=== PATIENT | female | born 1995 | race African-American/Black ===

== ENCOUNTER 2024-09-08 11:19 | Emergency (ER) | payer OTHER, MEDICAID, SELFPAY ==
--- NOTE | ~2024-09-08 | US_ITS ---
FIRST TRIMESTER ULTRASOUND 09/08/2024 16:55 CDT Ordering provider: Jaleel Donaldson MD History: . positive preg . Comparison: None. FINDINGS: INTRAUTERINE GESTATIONAL SAC: Present. Measures 0.42 cm. equal to 5 weeks and 1 day. YOLK SAC: Not seen. POLE: Not seen. GESTATIONAL AGE BY TODAY'S US: 5 weeks and 1 day. UTERUS: The uterus measures 9.9x 5x 5.7 in length which is within normal limits. No myometrial masses . FREE FLUID: Trace seen in the cul-de-sac. OVARIES: Normal in size with the right measuring 2.2x 2.3x 2.3 cm. and the left measuring 1.9x 1.2x 1 .7 cm. Doppler flow is demonstrated within both ovaries. ADNEXAL MASSES: None. IMPRESSION: Intrauterine gestational sac equal to 5 weeks and 1 day . Reviewed, dictated and finalized at location A.
--- NOTE | ~2024-09-08 | XR_ITS ---
EXAMINATION: XR chest 1V portable DATE: 09/08/2024 12:03 INDICATION: Chronic cough TECHNIQUE: frontal view of the chest was obtained. COMPARISON: None FINDINGS: The lungs are clear with no focal airspace opacities, pulmonary edema, pleural effusion or pneumothor ax. The cardiomediastinal silhouette is normal. Visualized bones and soft tissues are unremarkable. IMPRESSION: 1. No acute cardiopulmonary disease. Reviewed, dictated and finalized at location A.
[2024-09-08 11:43] VITALS: BP 127/76; PULSE 88; RESP 18; TEMP 36.6; O2SAT 100
--- NOTE | 2024-09-08 12:10 | ED.ABDPAIN ---
HPI - Abdominal Pain General Chief Complaint: Abdominal Pain Stated Complaint: abd pain Time Seen by Provider: 09/08/24 11:47 History of Present Illness HPI narrative: 29-year-old otherwise healthy female presenting to the emergency room with lower abdominal pain and pelvic pain. Patient states that has been going on for last 2 weeks. Endorses being late on her menstrual cycle and she normally is very regular. Potential according to her. Denies any vaginal bleeding or leakage of fluids. No urinary symptoms. Endorses a 2nd complaint including a chronic cough for last month associated with some headache and nausea without vomiting. No upper abdominal pain, no history of abdominal surgeries. She was otherwise in her normal state of health. She is not from the area and just moved from [place] and has not established with a primary care provider yet. Denies any trauma or injury. Patient is also requesting STD testing although she does not have any rash or symptoms at this time she is concerned. Related Data Allergies Allergy/AdvReac Type Severity Reaction Status Date / Time No Known Allergies Allergy Verified 09/08/24 11:20 Review of Systems Review of Systems: As reviewed above in HPI Exam Narrative: GENERAL: [Well-appearing, well-nourished, and in no acute distress.] HEAD: [Normocephalic, atraumatic.] EYES: [PERRLA and EOMI.] ENT: Nares clear, no rhinorrhea or epistaxis. Mucous membranes moist. NECK: Supple. CHEST: [Clear to auscultation. No respiratory distress.] HEART: [Regular rate and rhythm]. No murmur heard. [Normal peripheral pulses.] ABDOMEN: [Soft, nondistended], [nontender], [No rigidity or guarding] EXTREMITIES: Normal range of motion. [No edema.] SKIN: Warm, dry, no rash. NEURO: [No focal deficits]. Alert and oriented [x3.] PSYCH: [Normal mood and affect.] Course Vital Signs Vital signs: Vital Signs Temperature 36.6 C 09/08/24 11:43 Pulse Rate 88 09/08/24 11:43 Respiratory Rate 18 09/08/24 11:43 Blood Pressure 127/76 09/08/24 11:43 Pulse Oximetry 100 09/08/24 11:43 Oxygen Delivery Room Air 09/08/24 11:43 Temperature 36.6 C 09/08/24 11:43 Pulse Rate 88 09/08/24 11:43 Respiratory Rate 18 09/08/24 11:43 Blood Pressure 127/76 09/08/24 11:43 Pulse Oximetry 100 09/08/24 11:43 Oxygen Delivery Room Air 09/08/24 11:43 MDM - Abdominal Pain MDM Narrative Medical decision making narrative: 29-year-old female with no pertinent past medical history presenting with lower abdominal pain for 2 weeks and cough for 1 month. Patient denies any urinary complaints. States she is late on her menstrual cycle and concerned about STDs as well. She has an unremarkable examination with a soft nontender nondistended abdomen. Normal vital signs. She is afebrile. Clear breath sounds throughout. Her lower abdominal pain and cough for likely separate issues and non emergent based on her well appearance and normal vital signs. Differential for her lower abdominal pain includes appendicitis, ovarian cyst, constipation, gastroenteritis, pelvic inflammatory disease or ovarian abscess. Laboratory studies were obtained including CBC, CMP, lipase, urinalysis and urine test. Gonorrhea, chlamydia and Trichomonas screenings also ordered. Chest x-ray and viral panel swabs obtained. Laboratory studies showed no leukocytosis or anemia. Normal platelet count. LFTs normal, normal renal function, normal electrolytes. Normal lipase. Urinalysis shows some signs of infection potentially. test positive and in the setting of lower pelvic pain we will have to rule out ectopic. Ultrasound was ordered as well as quantitative beta hCG. Normal renal function, normal electrolytes, normal lipase. Mildly elevated D-dimer that is low risk per years criteria. Viral panel negative, chlamydia gonorrhea and Trichomonas negative. Chest x-ray shows no acute cardiopulmonary disease. Obstetric ultrasound shows intrauterine gestational sac 5 weeks 1 day . Patient stable for discharge home at this time will be sent home with [facility] for her urinary tract infection and follow-up with OBGYN. Medical Records Attestation: I reviewed the patient's medical records. Lab Data Attestation: I reviewed the patient's lab results. 09/08/24 13:11 09/08/24 13:11 Labs: Lab Results 09/08/24 09/08/24 09/08/24 Range/Units 13:10 13:11 14:04 WBC 4.4 L (4.5-10.0) K/mm3 RBC 4.92 (4.2-5.4) M/mm3 Hgb 13.0 (12.0-15.0) g/dL Hct 37.1 (37.0-47.0) % MCV 75.4 L (80-100) fl MCH 26.4 (26-34) pg MCHC 35.0 (32-36) g/dl RDW 14.3 (11.5-14.5) % Plt Count 228 (150-375) k/mm3 MPV 12.4 H (7.4-10.4) fl Immature Gran % (Auto) 0.0 (0-0.5) % Neut % (Auto) 54.3 (45.5-73.1) % Lymph % (Auto) 37.6 (18.3-44.2) % [place] % (Auto) 5.4 (2.6-8.5) % Eos % (Auto) 1.8 (0-4.4) % Baso % (Auto) 0.9 (0.2-1.2) % Lymph # (Auto) 1.66 (0.9-3.2) K/mm3 [place] # (Auto) 0.2 (0.1-0.6) K/mm3 Eos # (Auto) 0.1 (0-0.3) K/mm3 Baso # (Auto) 0.0 (0.0-0.1) K/mm3 Abs Immat Gran (auto) 0.00 (0.00-0.031) K/mm3 Absolute Neuts (auto) 2.4 (1.3-6.7) K/mm3 Absolute Nucleated RBC 0.000 (0.0-0.012) K/mm3 Nucleated RBC % 0.0 (0.0-0.2) % D-Dimer 0.57 H (<0.48) ug/mL Sodium 136 L (137-145) mmol/L Potassium 4.0 (3.4-5.0) mmol/L Chloride 107 (98-107) mmol/L Carbon Dioxide 22 (22-30) mmol/L Anion Gap 7 (4-12) mmol/L BUN 12 (7-17) mg/dL Creatinine 0.82 (0.7-1.0) mg/dL Estim Creat Clear Calc 86 ml/min Estimated GFR > 60 (59 - ) Glucose 89 (65-110) mg/dL Calcium 9.1 (8.4-10.2) mg/dL Total Bilirubin 0.5 (0.2-1.3) mg/dL AST 23 (14-36) U/L ALT 16 (6-35) U/L Alkaline Phosphatase 45 (38-126) U/L Total Protein 8.0 (6.3-8.2) g/dL Albumin 4.1 (3.5-5.1) g/dL Lipase 121 (23-300) U/L Beta HCG, Quant 4328.60 mIU/ML Urine Color Yellow (Yellow) Urine Appearance Cloudy H (Clear) Urine pH 6.5 (5.0-9.0) Ur Specific [place] 1.012 (1.001-1.035) Urine Protein Negative (Negative) mg/dL Urine Glucose (UA) Negative (Negative) mg/dL Urine Ketones Negative (Negative) mg/dL Ur Blood (Man) Trace (Negative) Urine Nitrate Negative (Negative) Urine Bilirubin Negative (Negative) Urine Urobilinogen 1.0 (<2.0) mg/dL Leukocyte Esterase Rfl 3+ H (Negative) JULIUS/UL Urine RBC 3-5 H (0-2) /hpf Urine WBC 11-20 H (0-3) /hpf Ur Squamous Epith Cells Moderate (Few) /hpf Urine Bacteria 1+ H /hpf Urine Casts 0-2 POC Urine HCG, Qual Positive (Negative) C. trachomatis (PCR) Not detected (NOT DETECTE) Influenza A (RT-PCR) Negative (Negative) Influenza B (RT-PCR) Negative (Negative) N. gonorrhoeae (PCR) Not detected (NOT DETECTE) RSV (RT-PCR) Negative (Negative) SARS-CoV-2 RNA (RT-PCR) Negative (Negative) T. vaginalis (PCR) Not detected (NOT DETECTE) Imaging Data Attestation: I personally reviewed and interpreted this imaging study as follows: My impression: Impressions Chest X-Ray 09/08/24 12:06 IMPRESSION: 1. No acute cardiopulmonary disease. Obstetrics Ultrasound 09/08/24 17:52 IMPRESSION: Intrauterine gestational sac equal to 5 weeks and 1 day . Radiologist's impression: ITS Impressions Chest X-Ray 09/08/24 12:06 IMPRESSION: 1. No acute cardiopulmonary disease. Obstetrics Ultrasound 09/08/24 17:52 IMPRESSION: Intrauterine gestational sac equal to 5 weeks and 1 day . Discharge Plan Discharge Clinical Impression: First trimester , UTI (urinary tract infection), Chronic cough Patient Disposition: Home Condition: Stable Instructions: Antibiotic Form, Chronic Cough (ED), Abdominal Pain in (ED), Urinary Tract Infection in (ED) Additional Instructions: Your workup today shows a intrauterine approximately 5 weeks 1 day gestation. Laboratory studies are all normal. You do have a urinalysis that shows signs and points towards urinary infection. STD panel is negative as well as viral panel negative. Chest x-ray shows no findings and your D-dimer is not elevated to the point of concern for a PE in . Follow-up with OBGYN and take the prescribed Keflex for urinary infection. Return with any new or worsening concerns at any time. Patient Language: Burundian Prescriptions: New cephalexin 500 mg capsule 500 mg PO Q12H 5 Days Qty: 10 0RF Follow-up/Referrals: PHYSICIAN,BRASS WIND INSTRUMENT MAKER [Primary Care Provider] - Stanley Mejía MD [Physician] - 1 Week (establish care for new intrauterine ) Time of Disposition: 18:56
--- OUTSIDE RECORDS SUMMARY | 2024-09-08 12:10 | XMS_ITS | Referral Summary ---
Author Organization [facility] Address [address] [place] [address] Care Team Providers Care Forestry Conservation Worker Name Role Phone Unavailable Primary Care Provider Unavailabl e Allergies Active Allergy Reactions Criticality Noted Date Comments Ascorbic Acid Rash Medium 07/08/2019 Castellano Pepper Extract Urticaria Medium 03/22/2023 [place] Hives,Itching Medium 05/18/2015 Medications Medrol, Lee, 4 mg Dosepack follow package directions 1 packet 3 Active naproxen (NAPROSYN) 500 mg tablet Take 1 tablet (500 mg total) by mouth 2 (two) times a day with meals 30 tablet 3 Active oxyCODONE (ROXICODONE) 5 mg immediate release tabletIndicatio ns:Pain Take 1-2 tablets (5-10 mg total) by mouth every 4 (four) hours as needed for pain (severe pain) 15 tablet 3 Active lidocaine (LIDODERM) 5 % Place 1-2 patches on the skin daily Remove & discard patch within 12 hours or as directed by . 30 patch 3 Active hydrOXYzine (ATARAX) 25 mg tablet Take 1 tablet (25 mg total) by mouth nightly at bedtime 3 Active rimegepant (NURTEC ODT) tablet,disinteg rating Take 1 tablet (75 mg total) by mouth as needed 3 Active SUMAtriptan (IMITREX) 50 mg tablet Take 1 tablet (50 mg total) by mouth 2 Active topiramate (TOPAMAX) 25 mg tablet Take 1 tablet (25 mg total) by mouth daily 3 Active valACYclovir (Valtrex) 500 mg tablet Take 1 tablet (500 mg total) by mouth 2 Active ketorolac (TORADOL) 10 mg tablet Take 1 tablet (10 mg total) by mouth every 6 (six) hours as needed for pain 20 tablet 4 Active Active Problems Problem Noted Date Diagnosed Date 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 Gender Identity Female 09/20/2023 9:49 AM CDT Sexual Orientation Not on file Last Filed Vital Signs Vital Sign Reading Time Taken Comments Blood Pressure 115/75 09/20/2023 4:46 PM CDT Pulse 83 09/20/2023 4:46 PM CDT Temperature 36.8 C (98.3 F) 09/20/2023 9:32 AM CDT Respiratory Rate 18 09/20/2023 4:46 PM CDT Oxygen Saturation 100% 09/20/2023 9:32 AM CDT Inhaled Oxygen Concentration - - Weight 68.5 kg (151 lb) 09/20/2023 10:43 AM CDT Height 170.2 cm (5' 7 ) 01/23/2023 1:27 PM CDT Body Mass Index 23.65 01/23/2023 1:27 PM CDT Plan of Treatment Not on file Insurance [facility] [employer] Address: [facility] [id number] [place] [address] [facility] [employer] Address: [facility] [address] [place] [address] [facility]
--- OUTSIDE RECORDS SUMMARY | 2024-09-08 12:10 | XMS_ITS | Clinical Summary ---
Author Organization [facility] Address [address] [place] [address] Care Team Providers Care Therapeutic Program Worker Name Role Phone None, Provider MD Primary Care Provider Unavaila ble Allergies Active Allergy Reactions Criticality Noted Date Comments Ascorbate Rash Medium 07/08/2019 Capsicum Hives Medium 03/22/2023 Elderberry-Vitamin C-Zinc Rash Low 07/08/2019 Jalapeno peppers Misc Natural Products Hives Medium 11/03/2023 Strawberries Hives,Itching Medium 05/18/2015 [place] Extract Rash Low 07/08/2019 Medications topiramate (TOPAMAX) 25 MG tabletIndications: Migraine without aura, not intractable, without status migrainosus Take 1 tablet (25 mg total) by mouth nightly at bedtime. 60 tablet 11 07/16/19 23 Active rimegepant (NURTEC) 75 MG disintegrating tabletIndications: Migraine without aura, not intractable, without status migrainosus Take 1 tablet (75 mg total) by mouth as needed for Migraine. 16 tablet 11 07/16/19 23 Active Additional Information Patient not taking.Reported on 06/27/2023 naproxen (NAPROSYN) 500 MG tablet Take 1 tablet (500 mg total) by mouth 2 (two) times daily. 01/25/20 23 Active hydrOXYzine (ATARAX) 25 MG tablet Take 1 tablet (25 mg total) by mouth daily. 02/08/20 23 Active rimegepant (NURTEC) 75 MG disintegrating tabletIndications: Migraine without aura, not intractable, without status migrainosus Take 1 tablet (75 mg total) by mouth as needed. Max of 1 tablet (75 mg) in 24 hours. 16 tablet 11 06/27/19 24 Active atogepant (QULIPTA) tabletIndications: Migraine without aura, not intractable, without status migrainosus Take 1 tablet (60 mg total) by mouth daily. 30 tablet 11 06/27/19 24 Active rimegepant (NURTEC) 75 MG disintegrating tabletIndications: Migraine without aura, not intractable, without status migrainosus Take 1 tablet (75 mg total) by mouth as needed. Max of 1 tablet (75 mg) in 24 hours. 16 tablet 11 07/03/19 24 Active Immunizations Immunization Administration Dates Next Due Dtap (Acel-Immune) 07/04/2000,02/04/1997 Dtp (Generic) 02/12/1996,1995,1995 HPV4 (Gardasil) 06/25/2014,01/20/2012,12/29/2009 Hepatitis A (Generic) 01/20/2012 Hepatitis B Pediatric 06/21/1996,1995,10/1995 Hib (Generic) 02/04/1997,02/12/1996,1995 ,1995 Influenza Adult (Generic) 02/10/2022,02/25/2015 MMR (MMRII) 07/04/2000,02/04/1997 Meningococcal (Menactra) 12/29/2009 Pneumococcal (Prevnar 7) 07/04/2000 Polio IPV (Ipol) 07/04/2000 Polio Opv (Generic) 02/12/1996,1995,1995 Tdap (Generic) 04/28/2015,12/29/2009 Varicella (Varivax) 12/29/2009,07/04/2000 Social History Tobacco Use Types Packs/Day Years Used Date Smoking Tobacco: Never Passive Smoke Exposure: Past Smokeless Tobacco: Never Tobacco Cessation:Counseling Given: No Alcohol Use Standard Drinks/Week Comments Not Currently 0 (1 standard drink = 0.6 oz pur e alcohol) PHQ-2 Answer Date Recorded Patient Health Questionnaire-2 Score 0 07/15/2022 Comments Unknown Sex and Gender Information Value Date Recorded Sex Assigned at Not on file Legal Sex Female 9:27 AM CDT Gender Identity Not on file Sexual Orientation Not on file Last Filed Vital Signs Vital Sign Reading Time Taken Comments Blood Pressure 120/78 05/21/2024 1:08 AM MATERIAL CHECKER Pulse 91 05/21/2024 1:08 AM MATERIAL CHECKER Temperature 37.6 C (99.7 F) 05/20/2024 11:13 PM MATERIAL CHECKER Respiratory Rate 24 05/20/2024 11:1 3 PM MATERIAL CHECKER Oxygen Saturation 100% 05/21/2024 1:08 AM MATERIAL CHECKER Inhaled Oxygen Concentration - - Weight 70.3 kg (154 lb 15.7 oz) 025 11:13 PM MATERIAL CHECKER Height 170.2 cm (5' 7 ) 05/20/2024 11:1 3 PM MATERIAL CHECKER Body Mass Index 24.27 05/20/2024 11:13 PM MATERIAL CHECKER Plan of Treatment Upcoming Encounters Date Type Department Care Team (Late st Contact Info) Description 10/14/2024 11:20 AM CDT Office Visit [facility] Multispecialty Care - [address], [address] [place] [address] Derick Ayala MD [address] [place] [address] Health Maintenance Due Date Last Done Comments Cervical Cancer Screening Pap Smear (Age 21 to 29) Every 3 Years 1995 Cervical Cancer Screening 1995 Annual Physical 07/18/1998 Hepatitis C 07/18/2013 COVID-19 Vaccine ( season) 2024 01/24/2022, 01/03/2022 PHQ-2 (Physician [place]) 05/15/2024 DTaP, Tdap and Td Vaccines (10 - Td or Tdap) 08/05/2031 08/04/2021, 01/13/2017, 04/28/2015, Additional history exists Pneumococcal Vaccine: Pediatrics (0 to 5 Years) and At-Risk Patients (6 to 49 Years) Aged Out 07/04/2000 No longer eligible based on patient's age to complete this topic Meningococcal Vaccine Aged Out 01/13/2017, 010 No longer eligible based on patient's age to complete this topic HPV Vaccines Completed 07/20/2018, 06/2017, 11/10/2017, Additional history exists Hepatitis B Vaccines Completed 03/20/2019, 07/21/2017, 02/18/2017, Additional history exists Meningococcal B Vaccine Aged Out No l onger eligible based on patient's age to complete this topic RSV Immunizations Under 20 Months Aged Out No longer eligible based on patient's age to complete this topic Insurance Care Teams Therapeutic Program Worker Relationship Specialty Start Date End Date None, Provider, PCP - General UNKNOWN PHYSICIAN SPECIALTY 05/20/24
--- OUTSIDE RECORDS SUMMARY | 2024-09-08 12:10 | XMS_ITS | Clinical Summary ---
Author Organization [facility] Address [address] [place] [address] Care Team Providers Care Teacher Preschool Name Role Phone Unavailable Primary Care Provider Unavailabl e Allergies Active Allergy Reactions Criticality Noted Date Comments Ascorbic Acid Rash Medium 07/08/2019 Castellano Pepper Extract Urticaria Medium 03/22/2023 [place] Hives,Itching Medium 05/18/2015 Medications Medrol, Lee, 4 [...] hemoglobin and sickle cell disease syndrome 03/17/2022 Medical History Medical History Date Comments Chronic low back pain Social History Tobacco Use Types Packs/Day Years [...] on file 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 Gender Identity Female 09/20/2023 9:49 AM CDT Sexual Orientation Not on file Obstetrics History Last Filed Vital Signs Vital Sign Reading [...] 01/23/2023 1:27 PM CDT Plan of Treatment Health Maintenance Due Date Last Done Comments Cervical Cancer Screening 1995 Depression Screening 1995 Hepatitis C Screening 1995 Pneumococcal vaccine <65 (2 of 3 - PPSV23) 08/29/2000 07/04/2000 Meningococcal B Vaccine (1 o f 5 - Increased Risk) 07/18/2005 Regular Well Visit/Exam 18-64 07/18/2013 Influenza Vaccine (#1) 2024 , 04/17/2019, 03/21/2018, Additional history exists DTaP/Tdap/Td Vaccine (10 - T d or Tdap) 08/05/2031 08/04/2021, 01/13/2017, 04/28/2015, Additional history exists Varicella Vaccines Completed 12/29/2009, 07/04/2000 HPV Vaccines Completed 06/25/2014, 11/2011, 12/29/2009 Hepatitis B Screening Completed 03/20/2019 , 07/21/2017, 02/18/2017, Additional history exists Insurance [facility] HE[employer] EMPL[employer]EE [employer] Address: [facility] [id number] [place] [address] [facility]
[2024-09-08 13:21] LABS: BEDSIDEPREGUCG Positive (Negative)
[2024-09-08 13:22] LABS: Basophils Percent Auto 0.9 % (0.2-1.2); Eosinophils Absolute Auto 0.1 K/mm3 (0-0.3); Eosinophils Percent Auto 1.8 % (0-4.4); Hematocrit 37.1 % (37.0-47.0); Lymphocytes Absolute Auto 1.66 K/mm3 (0.9-3.2); Lymphocytes Percent Auto 37.6 % (18.3-44.2); Mean Corpuscular Hemoglobin 26.4 pg (26-34); Mean Corpuscular Volume 75.4 fl (80-100); Mean Platelet Volume 12.4 fl (7.4-10.4); Monocytes Absolute Auto 0.2 K/mm3 (0.1-0.6); Monocytes Percent Auto 5.4 % (2.6-8.5); Neutrophils Absolute Auto 2.4 K/mm3 (1.3-6.7); Neutrophils Percent Auto 54.3 % (45.5-73.1); Platelet Count Result 228 k/mm3 (150-375); Red Blood Count 4.92 M/mm3 (4.2-5.4); Red Cell Distribution Width 14.3 % (11.5-14.5); White Blood Count 4.4 K/mm3 (4.5-10.0)
[2024-09-08 13:28] LABS: Add Urine Microscopic? YES; Appearance Urine Cloudy (Clear); Bacteria Urine 1+ /hpf; Bilirubin Urine Negative (Negative); Blood Urine Trace (Negative); Color Urine Yellow (Yellow); Glucose Urine UA Negative (Negative); Ketones Urine Negative (Negative); Leukocyte Esterase Ur 3+ LEU/UL (Negative); Nitrate Urine Negative (Negative); Non Pathogenic Casts 0-2; Protein Urine Negative (Negative); Specific Grav Ur 1.012 (1.001-1.035); Squamous Epithelial Cell Urine Moderate /hpf (Few); pH Urine 6.5 (5.0-9.0)
[2024-09-08 13:34] LABS: Alanine Aminotransferase 16 U/L (6-35); Albumin Level 4.1 g/dL (3.5-5.1); Alkaline Phosphatase 45 U/L (38-126); Anion Gap 7 mmol/L (4-12); Aspartate Amino Transferase 23 U/L (14-36); Bilirubin,Total 0.5 mg/dL (0.2-1.3); Blood Urea Nitrogen 12 mg/dL (7-17); Calcium 9.1 mg/dL (8.4-10.2); Carbon Dioxide 22 mmol/L (22-30); Chloride 107 mmol/L (98-107); Estimated CRCL calculation 86 ml/min; Estimated Glomerular Filt Rate > 60; Glucose 89 mg/dL (65-110); Lipase 121 U/L (23-300); Sodium 136 mmol/L (137-145)
[2024-09-08 14:44] LABS: Influenza A QL RT-PCR Negative (Negative); Influenza B QL RT-PCR Negative (Negative); RSV RNA, RT-PCR Negative (Negative); SARS-CoV-2 RNA PCR Negative (Negative)
[2024-09-08 15:16] LABS: Trichomonas Vag PCR NOT DETECTED (NOT DETECTE)
[2024-09-08 15:41] LABS: Chlamydia trachomatis NOT DETECTED (NOT DETECTE); Neisseria gonorrhoeae PCR NOT DETECTED (NOT DETECTE)
[2024-09-08 17:41] LABS: D Dimer 0.57 ug/mL (<0.48)
[2024-09-08 19:15] VITALS: BP 119/85; PULSE 74; RESP 16; O2SAT 100
== END 2024-09-08 19:15 | disposition home or self-care (01) ==
PROVIDERS: Emergency Provider Student in an Organized Health Care Education/Training Program
DX: O23.41 Unspecified infection of urinary tract in pregnancy, first trimester (principal); N39.0 Urinary tract infection, site not specified; O99.891 Other specified diseases and conditions complicating pregnancy; R05.3 Chronic cough; Z20.822 Contact with and (suspected) exposure to COVID-19; Z3A.01 Less than 8 weeks gestation of pregnancy
CPT/HCPCS: 36415; 71045; 76801; 76817; 80053; 81001; 81025; 83690; 84702; 85025; 85380; 87491; 87591; 87637; 87661; 96365; 99284; J0696

== ENCOUNTER 2024-09-16 10:31 | Outpatient (CLI) | payer OTHER, MEDICAID, SELFPAY ==
--- OUTSIDE RECORDS SUMMARY | 2024-09-16 11:26 | XMS_ITS | Referral Summary ---
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
--- OUTSIDE RECORDS SUMMARY | 2024-09-16 11:26 | XMS_ITS | Clinical Summary ---
Author Organization [facility] Address [address] [place] [address] Care Team Providers Care Plaster Die Maker Name Role Phone None, Provider MD Primary Care Provider Unavaila ble Allergies Active Allergy Reactions Criticality Noted Date Comments Ascorbate Rash Medium 07/08/2019 Capsicum Hives Medium 03/22/2023 Elderberry-Vitamin C-Zinc Rash Low 07/08/2019 Jalapeno peppers Misc Natural Products Hives Medium 11/03/2023 [place]raw[place] Hives,Itching Medium 05/18/2015 [place] Extract Rash Low 07/08/2019 Medications topiramate (TOPAMAX) [...] by mouth 2 (two) times daily. 01/25/20 Active hydrOXYzine (ATARAX) 25 MG tablet Take [...] Comments Blood Pressure 120/78 05/21/2024 1:08 AM HOMEMAKER COMPANION Pulse 91 05/21/2024 1:08 AM HOMEMAKER COMPANION Temperature 37.6 C (99.7 F) 05/20/2024 11:13 PM HOMEMAKER COMPANION Respiratory Rate 24 05/20/2024 11:1 3 PM HOMEMAKER COMPANION Oxygen Saturation 100% 05/21/2024 1:08 AM HOMEMAKER COMPANION Inhaled Oxygen Concentration - - Weight 70.3 kg (154 lb 15.7 oz) 025 11:13 PM HOMEMAKER COMPANION Height 170.2 cm (5' 7 ) 05/20/2024 11:1 3 PM HOMEMAKER COMPANION Body Mass Index 24.27 05/20/2024 11:13 PM HOMEMAKER COMPANION Plan of Treatment Upcoming Encounters Date Type Department Care Team (Late st Contact Info) Description 10/14/2024 11:20 AM CDT Office Visit [facility] Medical Group Multispecialty Care - [address], [address] [place] [address] Derick Ayala MD [address] [place] [address] Health Maintenance Due Date Last Done Comments Cervical Cancer Screening Pap Smear (Age 21 to 29) Every 3 Years 1995 Cervical Cancer Screening 1995 Annual Physical 07/18/1998 Hepatitis C 07/18/2013 COVID-19 Vaccine ( season) 2024 01/24/2022, 01/03/2022 PHQ-2 (Physician [place]) 05/15/2024 DTaP, Tdap and Td Vaccines (10 [...] to complete this topic Insurance Care Teams Plaster Die Maker Relationship Specialty Start Date End Date None, Provider, PCP - General UNKNOWN PHYSICIAN SPECIALTY 05/20/24
--- OUTSIDE RECORDS SUMMARY | 2024-09-16 11:26 | XMS_ITS | Clinical Summary ---
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
== END 2024-09-16 10:32 | disposition home or self-care (01) ==
LOC: ANHLAB 10:34
PROVIDERS: Visit Provider Student in an Organized Health Care Education/Training Program
DX: O20.0 Threatened abortion (principal); Z3A.00 Weeks of gestation of pregnancy not specified
CPT/HCPCS: 36415; 84702

== ENCOUNTER 2024-09-21 13:08 | Emergency (ER) | payer OTHER, MEDICAID, SELFPAY ==
[2024-09-21] VITALS (7 sets, daily range): BP systolic 115–132; BP diastolic 68–88; PULSE 71–86; RESP 15–20; TEMP 36.3; O2SAT 99–100
--- OUTSIDE RECORDS SUMMARY | 2024-09-21 13:11 | XMS_ITS | Clinical Summary ---
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
--- OUTSIDE RECORDS SUMMARY | 2024-09-21 13:11 | XMS_ITS | Clinical Summary ---
Author Organization [facility] Address [address] [place] [address] Care Team Providers Care Dive Supervisor Name Role Phone None, Provider MD Primary Care Provider Unavaila ble Allergies Active Allergy Reactions Criticality Noted Date Comments Ascorbate Rash Medium 07/08/2019 Capsicum Hives Medium 03/22/2023 Elderberry-Vitamin C-Zinc Rash Low 07/08/2019 Jalapeno peppers Misc Natural Products Hives Medium 11/03/2023 Strawberries Hives,Itching Medium 05/18/2015 [place] Extract Rash Low 07/08/2019 Medications topiramate (TOPAMAX) [...] Comments Blood Pressure 120/78 05/21/2024 1:08 AM MEAT SEAFOOD ASSOCIATE Pulse 91 05/21/2024 1:08 AM MEAT SEAFOOD ASSOCIATE Temperature 37.6 C (99.7 F) 05/20/2024 11:13 PM MEAT SEAFOOD ASSOCIATE Respiratory Rate 24 05/20/2024 11:1 3 PM MEAT SEAFOOD ASSOCIATE Oxygen Saturation 100% 05/21/2024 1:08 AM MEAT SEAFOOD ASSOCIATE Inhaled Oxygen Concentration - - Weight 70.3 kg (154 lb 15.7 oz) 025 11:13 PM MEAT SEAFOOD ASSOCIATE Height 170.2 cm (5' 7 ) 05/20/2024 11:1 3 PM MEAT SEAFOOD ASSOCIATE Body Mass Index 24.27 05/20/2024 11:13 PM MEAT SEAFOOD ASSOCIATE Plan of Treatment Upcoming Encounters Date Type Department Care Team (Late st Contact Info) Description 10/14/2024 11:20 AM CDT Office Visit [facility] - [address], [address] [place] [address] Derick Ayala MD [address] [place] [address] Health Maintenance Due Date Last Done Comments Cervical Cancer Screening Pap Smear (Age 21 to 29) Every 3 Years 1995 Cervical Cancer Screening 1995 Annual Physical 07/18/1998 Hepatitis C 07/18/2013 COVID-19 Vaccine ( season) 2024 01/24/2022, 01/03/2022 PHQ-2 (Physician [place]) 05/15/2024 DTaP, Tdap and Td Vaccines (10 [...] to complete this topic Insurance Care Teams Dive Supervisor Relationship Specialty Start Date End Date None, Provider, PCP - General UNKNOWN PHYSICIAN SPECIALTY 05/20/24
--- OUTSIDE RECORDS SUMMARY | 2024-09-21 13:11 | XMS_ITS | Referral Summary ---
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
--- OUTSIDE RECORDS SUMMARY | 2024-09-21 14:59 | XMS_ITS | Referral Summary ---
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
--- OUTSIDE RECORDS SUMMARY | 2024-09-21 15:00 | XMS_ITS | Clinical Summary ---
Author Organization [facility] Address [address] [place] [address] Care Team Providers Care Consulting Actuary Name Role Phone None, Provider MD Primary Care Provider Unavaila ble Allergies Active Allergy Reactions Criticality Noted Date Comments Ascorbate Rash Medium 07/08/2019 Capsicum Hives Medium 03/22/2023 Elderberry-Vitamin C-Zinc Rash Low 07/08/2019 Jalapeno peppers Misc Natural Products Hives Medium 11/03/2023 Strawberries Hives,Itching Medium 05/18/2015 [place] Extract Rash Low 07/08/2019 Medications topiramate (TOPAMAX) [...] Comments Blood Pressure 120/78 05/21/2024 1:08 AM TURF SALES PERSON Pulse 91 05/21/2024 1:08 AM TURF SALES PERSON Temperature 37.6 C (99.7 F) 05/20/2024 11:13 PM TURF SALES PERSON Respiratory Rate 24 05/20/2024 11:1 3 PM TURF SALES PERSON Oxygen Saturation 100% 05/21/2024 1:08 AM TURF SALES PERSON Inhaled Oxygen Concentration - - Weight 70.3 kg (154 lb 15.7 oz) 025 11:13 PM TURF SALES PERSON Height 170.2 cm (5' 7 ) 05/20/2024 11:1 3 PM TURF SALES PERSON Body Mass Index 24.27 05/20/2024 11:13 PM TURF SALES PERSON Plan of Treatment Upcoming Encounters Date Type Department Care Team (Late st Contact Info) Description 10/14/2024 11:20 AM CDT Office Visit [facility] - [address], [address] [place] [address] Derick Ayala MD [address] [place] [address] Health Maintenance Due Date Last Done Comments Cervical Cancer Screening Pap Smear (Age 21 to 29) Every 3 Years 1995 Cervical Cancer Screening 1995 Annual Physical 07/18/1998 Hepatitis C 07/18/2013 COVID-19 Vaccine ( season) 2024 01/24/2022, 01/03/2022 PHQ-2 (Physician [place]) 05/15/2024 DTaP, Tdap and Td Vaccines (10 [...] to complete this topic Insurance Care Teams Consulting Actuary Relationship Specialty Start Date End Date None, Provider, PCP - General UNKNOWN PHYSICIAN SPECIALTY 05/20/24
--- OUTSIDE RECORDS SUMMARY | 2024-09-21 15:00 | XMS_ITS | Clinical Summary ---
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
--- NOTE | 2024-09-21 16:17 | ED_ITS ---
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 Patient states she is having suprapubic abdominal cramping. Has not taking anything for symptoms. Denies vaginal bleeding, dysuria or hematuria, vaginal discharge or concern for STDs, fevers or vomiting. Is endorsing nausea but attributes this to morning sickness. LMP 08/01/2024. She is established with Dr. Mejía. The patient was evaluated in our ED on 09/08/2024 for suprapubic cramping and vaginal bleeding. She had an ultrasound at that time which showed an intrauterine gestational sac equal to 5 weeks and 1 day . She states the vaginal bleeding stopped about a week ago and she has not had any since. She is Rh positive per chart review. Patient did follow-up with Dr. 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 Related Data Allergies Allergy/AdvReac Type Severity Reaction Status Date / Time No Known Allergies Allergy Verified 09/21/24 14:48 Review of Systems 2 Review of Systems: All systems reviewed & are unremarkable except as noted in HPI and below PMFSH Past Medical History Medical History Sickle cell disease Surgical History Surgical History History of delivery Family History Family History Father Diabetes mellitus Social History Social History Smoking status: Never smoker Alcohol intake: current Alcohol use details: rare Substance use: never Substance use type: does not use Do You Feel Safe in your Home?: Yes Lack of Transportation: No Lack of Food: Sometimes True Current Housing: I Have Housing Concerned About Future Housing: No Difficulty Paying Gas/Electric Bills: YES Difficulty Paying for Meds: YES Currently Unemployed: YES Education: High School Diploma/GED Difficulty w/ Childcare or Family Care: No Living arrangements: with family Occupation/Education: occupation Gender identity (if verbalized by the patient): Female Sexual Orientation (if Verbalized by the Patient): Straight or Heterosexual Exam 2 Narrative: GENERAL: Well-appearing, well-nourished, and in no acute distress. HEAD: Normocephalic, atraumatic. EYES: PERRLA and EOMI. ENT: Nares clear, no rhinorrhea or epistaxis. Mucous membranes moist. NECK: Supple. CHEST: Clear to auscultation. No respiratory distress. HEART: Regular rate and rhythm. No murmur heard. Normal peripheral pulses. ABDOMEN: Normoactive bowel sounds. Abdomen soft with tenderness in the suprapubic region. No rebound or rigidity. No CVA tenderness. Negative McBurney's sign. EXTREMITIES: Normal range of motion. No edema. SKIN: Warm, dry, no rash. NEURO: No focal deficits. Alert and oriented x3 Course Vital Signs Vital signs: Vital Signs Temperature 97.4 F L 09/21/24 13:28 Pulse Rate 81 09/21/24 13:28 Respiratory Rate 16 09/21/24 13:28 Blood Pressure 123/80 09/21/24 13:28 Pulse Oximetry 100 09/21/24 13:28 Oxygen Delivery Room Air 09/21/24 13:28 Temperature 97.4 F L 09/21/24 13:28 Pulse Rate 76 09/21/24 18:00 Respiratory Rate 17 09/21/24 18:00 Blood Pressure 117/68 09/21/24 18:00 Pulse Oximetry 100 09/21/24 18:00 Oxygen Delivery Room Air 09/21/24 13:28 MDM - Female Genitourinary MDM Narrative Medical decision making narrative: 29-year-old female who is A0 currently 7 weeks presents to the emergency department for lower abdominal cramping that started today. No vaginal bleeding. Triage vitals are stable. Patient is afebrile nontoxic appearing and resting comfortably in exam bed. Exam is notable for tenderness to the suprapubic region. Lab work shows no leukocytosis or anemia. Chemistries are unremarkable. UA does indicate 11-20 white blood cells and 3+ leuk esterase with rare bacteria. Lipase is normal. Beta hCG uptrending, today is 62,7700, prior on 09/16/2024 was 30,665. Patient does have a confirmed IUP and had a pelvic ultrasound on 09/08/2024 which showed an intrauterine gestational sac measuring 5 weeks and 1 day of . I do not feel repeat exam is indicated today. I suspect her symptoms are secondary to UTI versus threatened miscarriage versus 1st trimester abdominal cramping. Patient was given Tylenol and Reglan in the ED with improvement. On re-evaluation she is found resting comfortably in the exam bed, playing on her phone and requesting food. She is given a sandwich and tolerating p.o. intake. She was started on Keflex for UTI, doxylamine, Reglan and Tylenol will be sent for symptomatic control. Advised close follow-up with OBGYN and discussed strict ED return precautions. She is agreeable with the plan verbalized understanding. Discharged in stable condition. Lab Data 09/21/24 16:22 09/21/24 16:22 Labs: Lab Results 09/21/24 09/21/24 09/21/24 Range/Units 16:08 16:22 16:33 WBC 4.5 (4.5-10.0) K/mm3 RBC 4.77 (4.2-5.4) M/mm3 Hgb 12.4 (12.0-15.0) g/dL Hct 35.8 L (37.0-47.0) % MCV 75.1 L (80-100) fl MCH 26.0 (26-34) pg MCHC 34.6 (32-36) g/dl RDW 14.4 (11.5-14.5) % Plt Count 193 (150-375) k/mm3 MPV 12.1 H (7.4-10.4) fl Immature Gran % (Auto) 0.2 (0-0.5) % Neut % (Auto) 54.7 (45.5-73.1) % Lymph % (Auto) 37.2 (18.3-44.2) % [place] % (Auto) 5.5 (2.6-8.5) % Eos % (Auto) 1.5 (0-4.4) % Baso % (Auto) 0.9 (0.2-1.2) % Lymph # (Auto) 1.69 (0.9-3.2) K/mm3 [place] # (Auto) 0.3 (0.1-0.6) K/mm3 Eos # (Auto) 0.1 (0-0.3) K/mm3 Baso # (Auto) 0.0 (0.0-0.1) K/mm3 Abs Immat Gran (auto) 0.01 (0.00-0.031) K/mm3 Absolute Neuts (auto) 2.5 (1.3-6.7) K/mm3 Absolute Nucleated RBC 0.000 (0.0-0.012) K/mm3 Nucleated RBC % 0.0 (0.0-0.2) % Sodium 134 L (137-145) mmol/L Potassium 3.7 (3.4-5.0) mmol/L Chloride 104 (98-107) mmol/L Carbon Dioxide 22 (22-30) mmol/L Anion Gap 8 (4-12) mmol/L BUN 13 (7-17) mg/dL Creatinine 0.78 (0.7-1.0) mg/dL Estim Creat Clear Calc 87 ml/min Estimated GFR > 60 (59 - ) Glucose 84 (65-110) mg/dL Calcium 8.8 (8.4-10.2) mg/dL Total Bilirubin 0.5 (0.2-1.3) mg/dL AST 24 (14-36) U/L ALT 16 (6-35) U/L Alkaline Phosphatase 44 (38-126) U/L Total Protein 7.0 (6.3-8.2) g/dL Albumin 4.0 (3.5-5.1) g/dL Lipase 120 (23-300) U/L Beta HCG, Quant 47109.00 mIU/ML Urine Color Yellow (Yellow) Urine Appearance Clear (Clear) Urine pH 6.0 (5.0-9.0) Ur Specific Reliance 1.010 (1.001-1.035) Urine Protein Negative (Negative) mg/dL Urine Glucose (UA) Negative (Negative) mg/dL Urine Ketones Negative (Negative) mg/dL Ur Blood (Man) Negative (Negative) Urine Nitrate Negative (Negative) Urine Bilirubin Negative (Negative) Urine Urobilinogen 1.0 (<2.0) mg/dL Leukocyte Esterase Rfl 3+ H (Negative) JULIUS/UL Urine RBC 0-2 (0-2) /hpf Urine WBC 11-20 H (0-3) /hpf Ur Squamous Epith Cells Few (Few) /hpf Urine Bacteria Rare /hpf Urine Casts 0-2 POC Urine HCG, Qual Positive (Negative) Discharge Plan Discharge Clinical Impression: Abnormal urinalysis, with suprapubic cramping, antepartum Patient Disposition: Home Condition: Stable Instructions: Antibiotic Form, Abdominal Pain in (ED), Urinary Tract Infection in (ED) Additional Instructions: You were evaluated in the emergency department for suprapubic abdominal cramping. You were found have a urinary tract infection or started on antibiotics. Please take these as directed. Your beta hCG hormone is 62,770 today. Please make sure to have this checked by your OBGYN and ensure that it is trending upwards. Take doxylamine as needed for nausea and vomiting, metoclopramide as needed for breakthrough nausea and vomiting, and acetaminophen as needed for pain. Follow-up closely with her OBGYN. Return to the emergency department if you develop a fever, vaginal discharge, vaginal bleeding and you're bleeding through 1 pad or tampon in an hour, worsening or changing pain, or other concerning symptoms. Patient Language: Setswana Prescriptions: New acetaminophen 500 mg capsule 500 mg PO Q6H PRN (Reason: pain) Qty: 20 0RF metoclopramide HCl 10 mg tablet 10 mg PO Q6H PRN (Reason: nausea and vomiting) Qty: 14 0RF doxylamine succinate 25 mg tablet 25 mg PO HS PRN (Reason: nausea and vomiting) Qty: 14 0RF cephalexin 500 mg capsule 500 mg PO Q6H Qty: 28 0RF No Action enoxaparin 40 mg/0.4 mL syringe See Rx Instructions .ROUTE .COMPLEX Qty: 96 2RF Dose Instruction: INJECT 40MG UNDER THE SKIN DAILY FOR 8 MONTHS. Rx Instructions: INJECT 40MG UNDER THE SKIN DAILY FOR 8 MONTHS. Follow-up/Referrals: PHYSICIAN,SOFTWARE APPLICATIONS SPECIALIST [Primary Care Provider] - Stanley Mejía MD [Physician] -
[2024-09-21] MEDS: METOCLOPRAMIDE HCL INJ 10 MG/2 ML VIAL IV PUSH (16:19)
[2024-09-21] MEDS: ACETAMINOPHEN 500 MG TABLET 1000 MG PO (16:20)
[2024-09-21 16:24] LABS: Add Urine Microscopic? YES; Appearance Urine Clear (Clear); Bacteria Urine Rare /hpf; Bilirubin Urine Negative (Negative); Blood Urine Negative (Negative); Color Urine Yellow (Yellow); Glucose Urine UA Negative (Negative); Ketones Urine Negative (Negative); Leukocyte Esterase Ur 3+ LEU/UL (Negative); Nitrate Urine Negative (Negative); Non Pathogenic Casts 0-2; Protein Urine Negative (Negative); RBC Urine 0-2 /hpf (0-2); Squamous Epithelial Cell Urine Few /hpf (Few)
[2024-09-21 16:30] LABS: Basophils Percent Auto 0.9 % (0.2-1.2); Eosinophils Absolute Auto 0.1 K/mm3 (0-0.3); Eosinophils Percent Auto 1.5 % (0-4.4); Hematocrit 35.8 % (37.0-47.0); Hemoglobin 12.4 g/dL (12.0-15.0); Immature Granulocyte Absolute 0.01 K/mm3 (0.00-0.031); Immature Granulocyte Percent A 0.2 % (0-0.5); Lymphocytes Absolute Auto 1.69 K/mm3 (0.9-3.2); Lymphocytes Percent Auto 37.2 % (18.3-44.2); Mean Corpuscular HGB Conc 34.6 g/dl (32-36); Mean Corpuscular Volume 75.1 fl (80-100); Mean Platelet Volume 12.1 fl (7.4-10.4); Monocytes Absolute Auto 0.3 K/mm3 (0.1-0.6); Monocytes Percent Auto 5.5 % (2.6-8.5); Neutrophils Absolute Auto 2.5 K/mm3 (1.3-6.7); Neutrophils Percent Auto 54.7 % (45.5-73.1); Platelet Count Result 193 k/mm3 (150-375); Red Blood Count 4.77 M/mm3 (4.2-5.4); Red Cell Distribution Width 14.4 % (11.5-14.5); White Blood Count 4.5 K/mm3 (4.5-10.0)
[2024-09-21 16:35] LABS: BEDSIDEPREGUCG Positive (Negative)
[2024-09-21 16:39] LABS: Alanine Aminotransferase 16 U/L (6-35); Alkaline Phosphatase 44 U/L (38-126); Anion Gap 8 mmol/L (4-12); Aspartate Amino Transferase 24 U/L (14-36); Bilirubin,Total 0.5 mg/dL (0.2-1.3); Blood Urea Nitrogen 13 mg/dL (7-17); Calcium 8.8 mg/dL (8.4-10.2); Carbon Dioxide 22 mmol/L (22-30); Chloride 104 mmol/L (98-107); Estimated CRCL calculation 87 ml/min; Estimated Glomerular Filt Rate > 60; Glucose 84 mg/dL (65-110); Lipase 120 U/L (23-300); Potassium 3.7 mmol/L (3.4-5.0); Sodium 134 mmol/L (137-145)
[2024-09-21] MEDS: CEPHALEXIN 500 MG CAPSULE PO (18:44)
== END 2024-09-21 18:45 | disposition home or self-care (01) ==
PROVIDERS: Emergency Provider Physician Assistant
DX: O26.891 Other specified pregnancy related conditions, first trimester (principal); R10.30 Lower abdominal pain, unspecified; O23.41 Unspecified infection of urinary tract in pregnancy, first trimester; N39.0 Urinary tract infection, site not specified; O99.011 Anemia complicating pregnancy, first trimester; D57.1 Sickle-cell disease without crisis; Z3A.01 Less than 8 weeks gestation of pregnancy
CPT/HCPCS: 36415; 80053; 81001; 81025; 83690; 84702; 85025; 87086; 96374; 99284; A9270; J2765

== ENCOUNTER 2025-02-09 00:30 | Emergency (ER) | payer OTHER, SELFPAY ==
--- NOTE | ~2025-02-09 | XR_ITS ---
Examination: XR chest 1V portable Clinical History: cough x 1 week Comparison: 09/08/2024 Technique: Portable AP Findings: Heart size normal. Lungs clear. No acute bony abnormality. IMPRESSION: 1. No acute cardiopulmonary findings given portable technique. Reviewed, dictated and finalized at location R.
[2025-02-09 00:41] VITALS: BP 120/75; PULSE 90; RESP 20; TEMP 37.2; O2SAT 100
[2025-02-09 00:52] VITALS: RESP 20; O2SAT 100
--- NOTE | 2025-02-09 00:59 | ED_ITS ---
HPI - General Adult General Chief complaint: Unspecified <Adelina Caraballo APRN - Last Filed: 02/09/25 02:16> Stated complaint: Cough, Lightheadedness, 27weeks preg <Adelina Caraballo APRN - Last Filed: 02/09/25 02:16> Time Seen by Provider: 02/09/25 00:50 <Adelina Caraballo APRN - Last Filed: 02/09/25 02:16> History of Present Illness HPI narrative: Patient is a 29-year-old female who presents to the ER with a 1-week history of cough that has led to her feeling lightheaded. She is also 27 weeks . Patient denies any sore throat, wheezing, chest pain, or recent fevers. She endorses intermittent shortness of breath due to the cough. Patient endorses a history of pulmonary embolisms, sickle cell anemia, and C-sections. She reports she remains on a blood thinner during her pregnancies due to her previous pulmonary embolisms. <Adelina Caraballo APRN - Last Filed: 02/09/25 02:16> Related Data Home medications: Home Medications ?Medication ?Instructions ?Recorded ?Confirmed ?Last Taken ?Type docosahexaenoic acid 200 mg mg PO 12/09/24 02/03/25 Un known History capsule ( DHA) <Adelina Caraballo APRN - Last Filed: 02/09/25 02:16> Allergies/adverse reactions: Allergies Allergy/AdvReac Type Severity Reaction Status Date / Time No Known Allergies Allergy Verified 02/03/25 09:11 <Adelina Caraballo APRN - Last Filed: 02/09/25 02:16> Review of Systems 2 Review of Systems: All systems reviewed & are unremarkable except as noted in HPI and below <Adelina Caraballo APRN - Last Filed: 02/09/25 02:16> [facility] Past Medical History Medical History: Medical History Sickle cell disease <Adelina Caraballo APRN - Last Filed: 02/09/25 02:16> Surgical History Surgical History: Surgical History History of delivery <Adelina Caraballo APRN - Last Filed: 02/09/25 02:16> Family History Family History: Family History Father Diabetes mellitus <Adelina Caraballo APRN - Last Filed: 02/09/25 02:16> Social History Social History: Social History Smoking status: Never smoker Alcohol intake: former Alcohol use details: rare Substance use: never Substance use type: does not use Do You Feel Safe in your Home?: Yes Current Housing: Decline to Answer Concerned About Future Housing: Decline to Answer Difficulty Paying Gas/Electric Bills: Decline to Answer Difficulty Paying for Meds: Decline to Answer Currently Unemployed: Decline to Answer Education: Decline to Answer Difficulty w/ Childcare or Family Care: Decline to Answer Living arrangements: with family Occupation/Education: occupation Gender identity (if verbalized by the patient): Female Sexual Orientation (if Verbalized by the Patient): Straight or Heterosexual <Adelina Caraballo APRN - Last Filed: 02/09/25 02:16> Exam 2 Narrative: GENERAL: Well appearing, well-nourished, non-toxic, in no acute distress. HEAD: Normocephalic, atraumatic. NECK: Supple. No adenopathy, no masses. RESPIRATORY: Airway patent, respirations nonlabored. Clear to auscultation bilaterally, no rales, rhonchi, wheezing. CARDIOVASCULAR: Regular rate and rhythm without murmurs, rubs, or gallops. Peripheral pulses 2+ and equal bilaterally. ABDOMINAL: Soft, nontender, nondistended, no hepatosplenomegaly. Normoactive BS. MUSCULOSKELETAL: Moves all extremities. Strength/ROM intact without gross deformities. SKIN: Warm, dry, normal color. No rashes. NEURO: A&O X3. Speech clear. Cranial nerves II-XII intact. No ataxic movements. PSYCHIATRIC: Appropriate mood and affect. Normal interaction. OB: heart rate in the 140s <Adelina Caraballo APRN - Last Filed: 02/09/25 02:16> Course CLOTH TEARER/PA Physician Supervision This visit was performed by both a physician and an APC. For this patient encounter, I reviewed the CLOTH TEARER or PA documentation, treatment plan, and medical decision making and had [id number] time with this patient. I performed all aspects of the MDM as documented. <Daly Macedo MD - Last Filed: 02/09/25 03:06> Vital Signs Vital signs: Vital Signs Temperature 99 F 02/09/25 00:41 Pulse Rate 90 02/09/25 00:41 Respiratory Rate 20 02/09/25 00:41 Blood Pressure 120/75 02/09/25 00:41 Pulse Oximetry 100 02/09/25 00:41 Oxygen Delivery Room Air 02/09/25 00:41 Temperature 99 F 02/09/25 00:41 Pulse Rate 90 02/09/25 00:41 Respiratory Rate 20 02/09/25 00:52 Blood Pressure 120/75 02/09/25 00:41 Pulse Oximetry 100 02/09/25 00:52 Oxygen Delivery Room Air 02/09/25 00:41 <Adelina Caraballo, TRUCK HEADL[employer] ASSEMBLER - Last Filed: 02/09/25 02:16> Vital Signs Temperature 99 F 02/09/25 00:41 Pulse Rate 90 02/09/25 00:41 Respiratory Rate 20 02/09/25 00:41 Blood Pressure 120/75 02/09/25 00:41 Pulse Oximetry 100 02/09/25 00:41 Oxygen Delivery Room Air 02/09/25 00:41 Temperature 99 F 02/09/25 00:41 Pulse Rate 90 02/09/25 00:41 Respiratory Rate 20 02/09/25 00:52 Blood Pressure 120/75 02/09/25 00:41 Pulse Oximetry 100 02/09/25 00:52 Oxygen Delivery Room Air 02/09/25 00:41 <Daly Macedo MD - Last Filed: 02/09/25 03:06> Medical Decision Making MDM Narrative Medical decision making narrative: Patient is a 29-year-old female who presents to the ER with a 1-week history of cough that has led to her feeling lightheaded. She is also 27 weeks . Patient denies any sore throat, wheezing, chest pain, or recent fevers. She endorses intermittent shortness of breath due to the cough. Patient endorses a history of pulmonary embolisms, sickle cell anemia, and C-sections. She reports she remains on a blood thinner during her pregnancies due to her previous pulmonary embolisms. Labs Ordered: CBC, CMP, UA, COVID/flu/RSV Imaging Ordered: chest x-ray Medications Ordered: 1 L normal saline IV bolus, DuoNeb, Mucinex Results: Patient's CBC indicates white blood cell count of 4.4, red blood cell count of 3.8, hemoglobin of 10.0, hematocrit of 28.7%. Her CMP indicates a sodium of 134, chloride of 108, carbon dioxide of 21, creatinine of 0.69. Patient's urinalysis was unremarkable. Patient's chest x-ray indicates no acute abnormalities. 214- Care signed out to Dr. Macedo pending COVID/flu/RSV results. <Adelina Caraballo, TRUCK HEADL[employer] ASSEMBLER - Last Filed: 02/09/25 02:16> Patient is a 29-year-old female who presents to the ER with a 1-week history of cough that has led to her feeling lightheaded. She is also 27 weeks . Patient denies any sore throat, wheezing, chest pain, or recent fevers. She endorses intermittent shortness of breath due to the cough. Patient endorses a history of pulmonary embolisms, sickle cell anemia, and C-sections. She reports she remains on a blood thinner during her pregnancies due to her previous pulmonary embolisms. Labs Ordered: CBC, CMP, UA, COVID/flu/RSV Imaging Ordered: chest x-ray Medications Ordered: 1 L normal saline IV bolus, DuoNeb, Mucinex Results: Patient's CBC indicates white blood cell count of 4.4, red blood cell count of 3.8, hemoglobin of 10.0, hematocrit of 28.7%. Her CMP indicates a sodium of 134, chloride of 108, carbon dioxide of 21, creatinine of 0.69. Patient's urinalysis was unremarkable. Patient's chest x-ray indicates no acute abnormalities. 5- Care signed out to Dr. Macedo pending COVID/flu/RSV results. [place]: Patient was signed out to [facility] pending viral swabs. COVID RSV influenza swabs were obtained and noted to be negative. Patient was informed of these findings at bedside. Instructed to follow-up with her OB within the next 3-5 days. Provided with strict return precautions instructed to return to the ED if any new or worsening symptoms develop. Discharged home in stable condition. <Daly Macedo MD - Last Filed: 02/09/25 03:06> Differential Diagnosis Differential Diagnosis: Upper respiratory infection, COVID, flu, RSV <Adelina Caraballo APRN - Last Filed: 02/09/25 02:16> Vital Signs Vital Signs: Vital Signs Temperature 99 F 02/09/25 00:41 Pulse Rate 90 02/09/25 00:41 Respiratory Rate 20 02/09/25 00:41 Blood Pressure 120/75 02/09/25 00:41 Pulse Oximetry 100 02/09/25 00:41 Oxygen Delivery Room Air 02/09/25 00:41 Temperature 99 F 02/09/25 00:41 Pulse Rate 90 02/09/25 00:41 Respiratory Rate 20 02/09/25 00:52 Blood Pressure 120/75 02/09/25 00:41 Pulse Oximetry 100 02/09/25 00:52 Oxygen Delivery Room Air 02/09/25 00:41 <Adelina Caraballo APRN - Last Filed: 02/09/25 02:16> Vital Signs Temperature 99 F 02/09/25 00:41 Pulse Rate 90 02/09/25 00:41 Respiratory Rate 20 02/09/25 00:41 Blood Pressure 120/75 02/09/25 00:41 Pulse Oximetry 100 02/09/25 00:41 Oxygen Delivery Room Air 02/09/25 00:41 Temperature 99 F 02/09/25 00:41 Pulse Rate 90 02/09/25 00:41 Respiratory Rate 20 02/09/25 00:52 Blood Pressure 120/75 02/09/25 00:41 Pulse Oximetry 100 02/09/25 00:52 Oxygen Delivery Room Air 02/09/25 00:41 <Daly Macedo MD - Last Filed: 02/09/25 03:06> Lab Data Lab results reviewed: Yes I reviewed the patient's lab results. <Adelina Caraballo APRN - Last Filed: 02/09/25 02:16> Result diagrams: 02/09/25 01:19 02/09/25 01:19 <Adelina AnguianoJihan Caraballo, [employer]UCK HEADL[employer] ASSEMBLER - Last Filed: 02/09/25 02:16> Labs: Lab Results 02/09/25 02/09/25 Range/Units 01:19 01:58 WBC 4.4 L (4.5-10.0) K/mm3 RBC 3.80 L (4.2-5.4) M/mm3 Hgb 10.0 L (12.0-15.0) g/dL Hct 28.7 L (37.0-47.0) % MCV 75.5 L (80-100) fl MCH 26.3 (26-34) pg MCHC 34.8 (32-36) g/dl RDW 14.1 (11.5-14.5) % Plt Count 151 (150-375) k/mm3 MPV TNP Immature Gran % (Auto) 0.5 (0-0.5) % Neut % (Auto) 63.0 (45.5-73.1) % Lymph % (Auto) 27.8 (18.3-44.2) % Bertie % (Auto) 5.7 (2.6-8.5) % Eos % (Auto) 2.3 (0-4.4) % Baso % (Auto) 0.7 (0.2-1.2) % Lymph # (Auto) 1.21 (0.9-3.2) K/mm3 Bertie # (Auto) 0.3 (0.1-0.6) K/mm3 Eos # (Auto) 0.1 (0-0.3) K/mm3 Baso # (Auto) 0.0 (0.0-0.1) K/mm3 Abs Immat Gran (auto) 0.02 (0.00-0.031) K/mm3 Absolute Neuts (auto) 2.8 (1.3-6.7) K/mm3 Absolute Nucleated RBC 0.000 (0.0-0.012) K/mm3 Nucleated RBC % 0.0 (0.0-0.2) % % Immature Plt Fraction 6.2 (0.9-11.2) % Sodium 134 L (137-145) mmol/L Potassium 3.8 (3.4-5.0) mmol/L Chloride 108 H (98-107) mmol/L Carbon Dioxide 21 L (22-30) mmol/L Anion Gap 5 (4-12) mmol/L BUN 10 (7-17) mg/dL Creatinine 0.69 L (0.7-1.0) mg/dL Estim Creat Clear Calc 115 ml/min Estimated GFR > 60 (59 - ) Glucose 88 (65-110) mg/dL Calcium 9.0 (8.4-10.2) mg/dL Total Bilirubin 0.4 (0.2-1.3) mg/dL AST 23 (14-36) U/L ALT 13 (6-35) U/L Alkaline Phosphatase 64 (38-126) U/L Total Protein 7.5 (6.3-8.2) g/dL Albumin 3.7 (3.5-5.1) g/dL Urine Color Yellow (Yellow) Urine Appearance Clear (Clear) Urine pH 6.5 (5.0-9.0) Ur Specific [place] 1.004 (1.001-1.035) Urine Protein Negative (Negative) mg/dL Urine Glucose (UA) Negative (Negative) mg/dL Urine Ketones Negative (Negative) mg/dL Ur Blood (Man) Negative (Negative) Urine Nitrate Negative (Negative) Urine Bilirubin Negative (Negative) Urine Urobilinogen 0.2 (<2.0) mg/dL Leukocyte Esterase Rfl Negative (Negative) JULIUS/UL Influenza A (RT-PCR) Negative (Negative) Influenza B (RT-PCR) Negative (Negative) RSV (RT-PCR) Negative (Negative) SARS-CoV-2 RNA (RT-PCR) Negative (Negative) <Adelina Caraballo, TRUCK HEADL[employer] ASSEMBLER - Last Filed: 02/09/25 02:16> Lab Results 02/09/25 02/09/25 Range/Units 01:19 01:58 WBC 4.4 L (4.5-10.0) K/mm3 RBC 3.80 L (4.2-5.4) M/mm3 Hgb 10.0 L (12.0-15.0) g/dL Hct 28.7 L (37.0-47.0) % MCV 75.5 L (80-100) fl MCH 26.3 (26-34) pg MCHC 34.8 (32-36) g/dl RDW 14.1 (11.5-14.5) % Plt Count 151 (150-375) k/mm3 MPV TNP Immature Gran % (Auto) 0.5 (0-0.5) % Neut % (Auto) 63.0 (45.5-73.1) % Lymph % (Auto) 27.8 (18.3-44.2) % Bertie % (Auto) 5.7 (2.6-8.5) % Eos % (Auto) 2.3 (0-4.4) % Baso % (Auto) 0.7 (0.2-1.2) % Lymph # (Auto) 1.21 (0.9-3.2) K/mm3 Bertie # (Auto) 0.3 (0.1-0.6) K/mm3 Eos # (Auto) 0.1 (0-0.3) K/mm3 Baso # (Auto) 0.0 (0.0-0.1) K/mm3 Abs Immat Gran (auto) 0.02 (0.00-0.031) K/mm3 Absolute Neuts (auto) 2.8 (1.3-6.7) K/mm3 Absolute Nucleated RBC 0.000 (0.0-0.012) K/mm3 Nucleated RBC % 0.0 (0.0-0.2) % % Immature Plt Fraction 6.2 (0.9-11.2) % Sodium 134 L (137-145) mmol/L Potassium 3.8 (3.4-5.0) mmol/L Chloride 108 H (98-107) mmol/L Carbon Dioxide 21 L (22-30) mmol/L Anion Gap 5 (4-12) mmol/L BUN 10 (7-17) mg/dL Creatinine 0.69 L (0.7-1.0) mg/dL Estim Creat Clear Calc 115 ml/min Estimated GFR > 60 (59 - ) Glucose 88 (65-110) mg/dL Calcium 9.0 (8.4-10.2) mg/dL Total Bilirubin 0.4 (0.2-1.3) mg/dL AST 23 (14-36) U/L ALT 13 (6-35) U/L Alkaline Phosphatase 64 (38-126) U/L Total Protein 7.5 (6.3-8.2) g/dL Albumin 3.7 (3.5-5.1) g/dL Urine Color Yellow (Yellow) Urine Appearance Clear (Clear) Urine pH 6.5 (5.0-9.0) Ur Specific [place] 1.004 (1.001-1.035) Urine Protein Negative (Negative) mg/dL Urine Glucose (UA) Negative (Negative) mg/dL Urine Ketones Negative (Negative) mg/dL Ur Blood (Man) Negative (Negative) Urine Nitrate Negative (Negative) Urine Bilirubin Negative (Negative) Urine Urobilinogen 0.2 (<2.0) mg/dL Leukocyte Esterase Rfl Negative (Negative) JULIUS/UL Influenza A (RT-PCR) Negative (Negative) Influenza B (RT-PCR) Negative (Negative) RSV (RT-PCR) Negative (Negative) SARS-CoV-2 RNA (RT-PCR) Negative (Negative) <Daly Macedo MD - Last Filed: 02/09/25 03:06> Imaging Data Attestation: I personally reviewed and interpreted this imaging study as follows: < Adelina Caraballo APRN - Last Filed: 02/09/25 02:16> My impression: Patient's chest x-ray indicates no acute abnormalities. <Adelina Caraballo APRN - Last Filed: 02/09/25 02:16> Discharge Plan Discharge Clinical Impression: Upper respiratory infection <Adelina Caraballo APRN - Last Filed: 02/09/25 02:16> Patient Disposition: Home <Adelina Caraballo APRN - Last Filed: 02/09/25 02:16> Condition: Improved <Adelina Caraballo APRN - Last Filed: 02/09/25 02:16> Instructions: Antibiotic Form, Viral Syndrome (ED) <Adelina Caraballo APRN - Last Filed: 02/09/25 02:16> Additional Instructions: Please follow-up with the family doctor/OB within the next 3-5 days. Return to ED if any new or worsening symptoms develop. <Adelina Caraballo APRN - Last Filed: 02/09/25 02:16> Patient Language: Niuean <Adelina Caraballo APRN - Last Filed: 02/09/25 02:16> Prescriptions: No Action DHA 200 mg capsule PO enoxaparin 40 mg/0.4 mL syringe See Rx Instructions .ROUTE .COMPLEX Qty: 96 2RF Dose Instruction: INJECT 40MG UNDER THE SKIN DAILY FOR 8 MONTHS. Rx Instructions: INJECT 40MG UNDER THE SKIN DAILY FOR 8 MONTHS. acetaminophen 500 mg capsule 500 mg PO Q6H PRN (Reason: pain) Qty: 20 0RF metoclopramide HCl 10 mg tablet 10 mg PO Q6H PRN (Reason: nausea and vomiting) Qty: 14 0RF (DME) cane Device See Rx Instructions .Route Qty: 1 0RF Rx Instructions: As directed <Adelina Caraballo APRN - Last Filed: 02/09/25 02:16> Follow-up/Referrals: Radha,ELIZABETH Vidal [Primary Care Provider, Unknown] - 3 Days <Adelina Caraballo APRN - Last Filed: 02/09/25 02:16> Time of Disposition: 03:05 <Adelina Caraabllo APRN - Last Filed: 02/09/25 02:16> 03:05 <Daly Macedo MD - Last Filed: 02/09/25 03:06>
--- OUTSIDE RECORDS SUMMARY | 2025-02-09 01:00 | XMS_ITS | Clinical Summary ---
Author Organization [facility] Address Pending sale to [facility] [place] [address] Care Team Providers Care Heel Pricker Name Role Phone Marcy Garcia PA-C Primary Care Provider [phone] Allergies Active Allergy Reactions Criticality Noted Date Comments Ascorbate Rash Medium 07/08/2019 Capsicum Hives Medium 03/22/2023 Elderberry-Vitamin C-Zinc Rash Low 07/08/2019 Jalapeno peppers Misc Natural Products Hives Medium 11/03/2023 Strawberries Hives,Itching Medium 05/18/2015 [place] Extract Rash Low 07/08/2019 Medications topiramate (TOPAMAX) [...] mg total) by mouth daily. 30 tablet 06/27/19 24 Active rimegepant (NURTEC) 75 MG [...] Hepatitis A (Generic) 01/20/2012 Hepatitis B Pediatric 06/21/1996,1995,0310/1995 Hib (Generic) 02/04/1997,02/12/1996,1995 ,1995 Influenza Adult (Generic) [...] Patient Health Questionnaire-2 Score 0 07/15/2022 Comments Yes Sex and Gender Information Value Date Recorded Sex Assigned at Female 11/07/2024 6:43 PM CDT Legal Sex Female 9:27 AM CDT Gender Identity Not on file Sexual Orientation Not on file Last Filed Vital Signs Vital Sign Reading Time Taken Comments Blood Pressure 106/75 11/07/2024 6:19 PM CDT Pulse 79 11/07/2024 6:19 PM CDT Temperature 36.7 C (98.1 F) 11/07/2024 1:58 PM CDT Respiratory Rate 16 11/07/2024 6:19 PM CDT Oxygen Saturation 97% 11/07/2024 6:19 PM CDT Inhaled Oxygen Concentration - - Weight 74.4 kg (164 lb 0.4 oz) 11/07/2024 1:58 P M CDT Height 170.2 cm (5' 7) 11/07/2024 1:58 PM CDT Body Mass Index 25.69 11/07/2024 1:58 PM CDT Plan of Treatment Health Maintenance Due Date Last Done Comments Cervical Cancer Screening Pap Smear (Age 21 to 29) Every 3 Years 1995 Cervical Cancer Screening 1995 Annual Physical 07/18/1998 Hepatitis C 07/18/2013 PHQ-2 (Physician [place]) 05/15/2024 COVID-19 Vaccine ( season) 2025 01/24/2022, 01/03/2022 DTaP, Tdap and Td Vaccines (9 - Td or Tdap) 01/13/2027 01/13/2017, 04/28/2015, 12/29/2009, Additional history exists RSV Immunization or 60+ Years (1 - 1-dose 75+ series) 07/18/2070 Hepatitis B Vaccines Completed 06/21/1996, 1995, 1995 Pneumococcal Vaccine: Pediatrics (0 to 5 Years) and At-Risk Patients (6 to 49 Years) Aged Out 07/04/2000 No longer eligible based on patient's age to complete this topic Meningococcal Vaccine Aged Out 12/29/2009 No jaclyn dalila eligible based on patient's age to complete this topic HPV Vaccines Completed 06/25/2014, 090 11/2011, 12/29/2009 Meningococcal B Vaccine Aged Out No l onger eligible based on patient's age to complete this topic RSV Immunizations Under 20 Months Aged Out No longer eligible based on patient's age to complete this topic Insurance MARTINEZ Care Teams Heel Pricker Relationship Specialty Start Date End Date Marcy Garcia PA-C [address] [place] [id number] PCP - General PHYSICIAN RN OBSERVATION 11/07/24
[2025-02-09] MEDS: SODIUM CHLORIDE 0.9% IV 1,000 ML 999 ML IV CONT (01:26)
[2025-02-09 01:28] LABS: Add Urine Microscopic? NO; Appearance Urine Clear (Clear); Glucose Urine UA Negative (Negative); Hematocrit 28.7 % (37.0-47.0); Hemoglobin 10.0 g/dL (12.0-15.0); Immature Granulocyte Percent A 0.5 % (0-0.5); Immature Platelet Fraction Pct 6.2 % (0.9-11.2); Leukocyte Esterase Ur Negative LEU/UL (Negative); Lymphocytes Absolute Auto 1.21 K/mm3 (0.9-3.2); Mean Corpuscular HGB Conc 34.8 g/dl (32-36); Mean Corpuscular Hemoglobin 26.3 pg (26-34); Mean Corpuscular Volume 75.5 fl (80-100); Nitrate Urine Negative (Negative); Nucleated Red Blood Cells Absolute Auto 0.000 K/mm3 (0.0-0.012); Nucleated Red Blood Cells Perc 0.0 % (0.0-0.2); Platelet Count Result 151 k/mm3 (150-375); Red Blood Count 3.80 M/mm3 (4.2-5.4); Specific Grav Ur 1.004 (1.001-1.035); White Blood Count 4.4 K/mm3 (4.5-10.0)
[2025-02-09 01:37] LABS: Alanine Aminotransferase 13 U/L (6-35); Albumin Level 3.7 g/dL (3.5-5.1); Alkaline Phosphatase 64 U/L (38-126); Anion Gap 5 mmol/L (4-12); Aspartate Amino Transferase 23 U/L (14-36); Bilirubin,Total 0.4 mg/dL (0.2-1.3); Blood Urea Nitrogen 10 mg/dL (7-17); Calcium 9.0 mg/dL (8.4-10.2); Carbon Dioxide 21 mmol/L (22-30); Chloride 108 mmol/L (98-107); Estimated CRCL calculation 115 ml/min; Estimated Glomerular Filt Rate > 60; Glucose 88 mg/dL (65-110); Potassium 3.8 mmol/L (3.4-5.0); Sodium 134 mmol/L (137-145); Total Protein 7.5 g/dL (6.3-8.2)
[2025-02-09] MEDS: ALBUTEROL SULFATE NEB 2.5 MG/3 ML INH 10 MG INHALATION (01:58)
[2025-02-09] MEDS: guaiFENesin 12 HR 600 MG TABCR PO (02:02)
[2025-02-09 02:39] LABS: Influenza A QL RT-PCR Negative (Negative); Influenza B QL RT-PCR Negative (Negative); RSV RNA, RT-PCR Negative (Negative); SARS-CoV-2 RNA PCR Negative (Negative)
== END 2025-02-09 03:55 | disposition home or self-care (01) ==
PROVIDERS: Emergency Provider Registered Nurse; PCP Physician Assistant
DX: O99.512 Diseases of the respiratory system complicating pregnancy, second trimester (principal); Z3A.27 27 weeks gestation of pregnancy; J06.9 Acute upper respiratory infection, unspecified; Z20.822 Contact with and (suspected) exposure to COVID-19
CPT/HCPCS: 36415; 71045; 80053; 81003; 85025; 85055; 87637; 96360; 99283; A9270; J7030

== ENCOUNTER 2025-03-26 13:06 | Outpatient (CLI) | payer OTHER, SELFPAY ==
--- OUTSIDE RECORDS SUMMARY | 2025-03-26 09:45 | XMS_ITS | Encounter Summary ---
Author Organization [facility] Address [address] [address] Care Team Providers Care Fiscal Manager Name Role Phone Unavailable Primary Care Provider Unavailabl e Reason for Referral * (Routine) - Open Specialty Diagnoses / Procedures Referred By Contac t Referred To Contact Diagnoses Hemoglobinopathy History of pulmonary embolism Fourth (HCC) Encounter for ultrasound to assess growth (HCC) High risk multigravida in second trimester (HCC) Encounter for other screening follow-up ([facility]) Procedures Biophysical Profile w NST Madhvai Rivera MD [address] [place] [address] Phone: tel: fax: Referral ID Status Reason Start Date Expiration Date Visits Re quested Visits Authorized [id number] Open 03/10/2025 03/10/2026 5 5 ORATE RELATIONS DIRECTOR Reason for Visit * Reason Comments Ultrasound Non-stress Test Biophysical Profile Follow-up Maternal Medicine * Evaluate & Treat (Routine) - Authorized Specialty Diagnoses / Procedures Referred By Contac t Referred To Contact Maternal Medicine Diagnoses Maternal care for unspecified type scar from previous delivery (HCC) Sickle cell disease (HCC) HSV-2 infection complicating (HCC) Placenta previa (HCC) Procedures IA FULL ROUT OBSTE CARE,VAGINAL DELIV Stanley Mejía MD [address] [place] [address] Phone: tel: fax: [facility] [address] [place] [address] Phone: tel: fax: Referral ID Status Reason Start Date Expiration Date V isits Requested Visits Authorized [id number] Authorized 12/20/2024 06/11/2025 18 18 Encounter Details Date Type Department Care Team (Late st Contact Info) Description 03/26/2025 9:45 AM CORPORATE RELATIONS DIRECTOR Hospital Encounter [facility] [address] [place] [id number] Rene Velez MD [address] [facility] [address] [place] [address] Lucero Alberto MD [address] [place] [address] Social History Tobacco Use Types Packs/Day Years Used Date Smoking Tobacco: Never Assessed Smokeless Tobacco: Never Alcohol Use Standard Drinks/Week Comments Not Currently 0 (1 standard drink = 0.6 oz pur e alcohol) Estimated Date of Delivery Comme nts Yes 05/08/2025 Based on last me nstrual period of 08/01/2024 Sex and Gender Information Value Date Recorded Sex Assigned at Not on file Legal Sex Female 10:34 AM CDT Gender Identity Not on file Sexual Orientation Not on file documented as of this encounter Last Filed Vital Signs Vital Sign Reading Time Taken Comments Blood Pressure 105/68 03/26/2025 10:05 AM CORPORATE RELATIONS DIRECTOR Pulse 96 03/26/2025 10:05 AM CORPORATE RELATIONS DIRECTOR Temperature - - Respiratory Rate - - Oxygen Saturation - - Inhaled Oxygen Concentration - - Weight 86.2 kg (190 lb) 03/26/2025 10:05 AM CORPORATE RELATIONS DIRECTOR Height - - Body Mass Index 29.76 02/19/2025 11:38 AM CDT documented in this encounter Progress Notes * Quynh Covington RN - 03/26/2025 10:30 AM CST Patient here for provider visit and screening at 33w6d. Denies contractions, vaginal bleeding, leakage of fluid, and reports good movement. RN reviewed preeclampsia precautions. Denies headache, blurred vision, RUQ pain. Patient reports her OB told her that they will be switching her to heparin prior to her section as it's easier to dose. Patient is wondering about a varicose vein in her right leg and if she should buy some compression socks. Encouraged patient to talk with provider today about it. Called Madhavi at Dr. Rivera office asking if patient had recent labs for ferritin, HH or retic count. She reports last labs were about 1 month ago. FINANCIAL AID MANAGER will send patient for labs today: retic count, ferritin and HH. Patient given lab requisitions. Patient has FU OB appt scheduled for 03/31/25. She reports she is scheduled out weekly for NST's onFridays through primary OB office. FINANCIAL AID MANAGER recommending BPP's weekly as well. Patient calling OB office while in exam room to ask OB office to add BPP's on. Patient Vitals for the past 6 hrs: Pulse BP 03/26/25 1005 96 105/68 Quynh Covington RN 03/26/2025 10:33 AM ORATE RELATIONS DIRECTOR * Nirmala Melton, BODY PRESSER-MANAGER TELEMETRY - 03/26/2025 10:01 AM CST WHNP follow up visit Trice Rock is a 29 year old 33w6d. We are following her for history of PE, and hemoglobinopathy: Hgb S/ HPFH. She has no complaints today. Reports compliance with Lovenox. Scheduled for repeat C/S 05/01/25. Reports varicose vein behind right knee. Reports being scheduled for NST/US every Monday at the hospital. She reports good FM, no bleeding, no LOF, no DC, no cramps/contractions/pain/pressure, no GIRALDO's, vision changes, RUQ pain, or swelling. Her is complicated by: Patient Active Problem List Diagnosis Date Noted History of pulmonary embolism 12/25/2024 Priority: Not Prioritized Hemoglobinopathy: Sickle S-HPFH disease. 12/24/2024 Priority: Not Prioritized Hematology [facility] 03/22/23 Herpes simplex type 2 (HSV-2) infection affecting , antepartum, second trimester (HCC) Priority: Not Prioritized Will need prophylaxis at 36 weeks Exam: BP 105/68 Pulse 96 Wt 86.2 kg (190 lb) General: NAD Abdomen: soft, NT Extremities: equal in size and width bilaterally, NT, no sign of edema FHT: per US Urine dip: negative glucose, trace ketones, trace protein, negative blood US: Please see report for details. Impressions/Recs 1. IUP (Intrauterine ) at 33w6d 2. History of PE Continue present conservative management on Lovenox 40 mg SQ Qday with history of PE. Plan to be off anticoagulation for at least 24 hours prior to labor. Would recommend repeat C/S at 39 weeks off anticoagulation for 24 hours and restart Lovenox approximately 6 hours after vaginal delivery or 12 hours after C/S. Continue Lovenox for at least 6-8 weekspostpartum. 3. Hemoglobinopathy HgbS/ HPFH - she has had extensive Hematology evaluation ( see care everywhere 03/22/2023) - the presence of hemoglobin is expected to be protective of the severe complications associated with sickle cell disease - H/H ..4 in October, baseline CMP wnl - it is reassuring that she has had 3 term pregnancies with normally grown newborns - I reviewed that her partner should be tested for hemoglobinopathy to determine risk to the fetus. hemoglobin evaluation is recommended, at the discretion of the 's wood grainer - She should have prompt evaluation of S/S of crisis - Growth US exams at 4-6 week intervals - testing at 32 weeks is recommended until delivery She has iron deficiency anemia, in addition to the hgbopathy. Iron supplement sen to her pharmacy on file, in addition to a PNV. It is important that she takes aPNV or folic acid so that she can retic. Recommend iron infusions if she is unable to tolerate PO Fe (reports compliance). H/H ferritn and retic ct in 3-4 weeks. Orders given today. 4. Previous - c section was done to protect lower back and hips in the context of chronic pain - scheduled for 05/01/25, per patient report 5. History of Migraines Encouraged follow up with Neurology Mag Ox sent to pharmacy on file. Patient cannot afford. Discussed tylenol and hydration 6. CC: Varicose veins Discussed safe use of thigh or waist high compression stockings 7. We reviewed kick counts (BID), as well as PTL and preeclampsia signs and symptoms. 8. RTC: 4 weeks FINANCIAL AID MANAGER/US/NST 9. Keep all appointments with primary OB I spent 30 minutes with the patient, greater than 50% of the time was spent face to face in discussion with the patient the remainder of the time was spent in chart prep and data review. The patient is to follow up with her primary obstetrical care provider for her routine care and acute OB care including delivery as clinically indicated. Once again, we appreciate the opportunity to assist you in the care of your patient. If issues arise for which I can be of help before her next visit here, please contact me directly, or contact one of the [facility] physicians. SANDRA Ko 03/26/2025 10:25 AM ORATE RELATIONS DIRECTOR ORATE RELATIONS DIRECTOR documented in this encounter Plan of Treatment Upcoming Encounters Date Type Department Care Team (Late st Contact Info) Description 04/23/2025 8:15 AM CORPORATE RELATIONS DIRECTOR Appointment [facility] [address] [place], [place] [id number] Scheduled Orders Name Type Priority Associated Diagnoses Orde r Schedule CBC WITH DIFFERENTIAL Lab Routine Hemoglobinopathy: Sickle S-HPFH disease. Sickle cell disease without crisis (HCC) 1 Occurrences starting 03/26/2025 until 03/21/2026 FERRITIN Lab Routine Hemoglobinopathy: Sickle S-HPFH disease. Sickle cell disease without crisis (HCC) 1 Occurrences starting 03/26/2025 until 03/21/2026 RETIC COUNT Lab Routine Hemoglobinopathy: Sickle S-HPFH disease. Sickle cell disease without crisis (HCC) 1 Occurrences starting 03/26/2025 until 03/21/2026 documented as of this encounter Procedures Procedure Name Priority Date/Time Associated Diagnosis Comments BIOPHYSICAL PROFILE W NST Routine 03/26/2025 10:56 AM CORPORATE RELATIONS DIRECTOR Hemoglobinopathy: Sickle S-HPFH disease. History of pulmonary embolism Fourth (HCC) Encounter for ultrasound to assess growth (HCC) High risk multigravida in second trimester (HCC) Encounter for other screening follow-up ([facility]) documented in this encounter Results * Biophysical Profile w NST (03/26/2025 10:56 AM CORPORATE RELATIONS DIRECTOR) Linked Results Indication ======== Encounter for ultrasound to assess growth Sickle cell anemia w/o crisis complicating History ====== OB History 4. Para 3 [id number] 1. live 2015. Gest. age 39 w + 0 d. Weight 3,430 g. Sex of child: female. Details: Vaginal delivery 2. live 2019. Gest. age 39 w + 0 d. Weight 2,722 g. Sex of child: male. Details: Vaginal delivery 3. live 2021. Gest. age 39 w + 0 d. Weight 2,977 g. Sex of child: male. Details: delivery; Sickle Cell Crisis Lab Tests Test Date Result NIPT Low risk, Male Maternal Assessment Physical Exam Height 170 cm, 5 ft 7 in. Weight 86 kg, 190 lb. Initial weight 73 kg, 160 lb. BMI 29.76 kg/m . Initial BMI 25.06 kg/m . Weight gain 14 kg, 30 lb Method ====== Transabdominal ultrasound. View: Sufficient ========= James . Number of fetuses: 1 Dating ====== Date Details Gest. age BAR LMP 08/01/2024 33 w + 6 d 05/08/2025 Assigned dating based on the LMP, selected on 12/25/2024 33 w + 6 d 05/08/2025 General Evaluation Cardiac activity present. FHR 135 bpm. Presentation: cephalic Placenta: Placental site: anterior Amniotic Fluid Assessment Amount of AF: normal MVP 3.9 cm. SHAUNA 13.5 cm. Q1 2.9 cm, Q2 3.0 cm, Q3 3.9 cm, Q4 3.7 cm Biophysical Profile 2: breathing movements 2: Gross body movements 2: tone 2: Amniotic fluid volume NST: reactive 02/21 Biophysical profile score Non Stress Test NST interpretation: reactive. Baseline FHR 140 bpm. Baseline variability: moderate. Accelerations: present Biometry BPD 80.1 mm 32w 1d 8% Hadlock HC 294.6 mm 32w 4d 2% Hadlock AC 296.9 mm 33w 5d 48% Hadlock Femur 66.8 mm 34w 3d 54% Hadlock Humerus 60.5 mm 35w 0d 87% Jackelin HC / AC 0.99 Weight Calculation: EFW 2,233 g 36% Hadlock EFW (lb,oz) 4 lb 15 oz EFW by Hadlock ([id number]) appropriate Growth Overview Exam date GA BPD (mm) HC (mm) AC (mm) FL (mm) HL (mm) EFW (g) 12/25/2024 20w 6d 49.4 53% 177.7 16% 155.2 38% 34 35% 33.3 62% 368 34% 01/22/2025 24w 6d 62.5 60% 214.4 3% 203.3 43% 46.1 51% 43.7 79% 753 44% 02/19/2025 28w 6d 72.4 44% 257.4 5% 241.2 29% 54.6 34% 49.4 45% 1245 27% 03/26/2025 33w 6d 80.1 8% 294.6 2% 296.9 48% 66.8 54% 60.5 87% 2233 36% Anatomy The following structures appear normal: Heart / Thorax 4-chamber view. Abdomen Stomach. Kidneys. Bladder. sex: male. Impression ========= Single, live, intrauterine at 33w 6d The growth is appropriate. The amniotic fluid volume is normal. The biophysical profile is 10/10. FINANCIAL AID MANAGER consult today. Follow-up ======== Continue twice weekly testing. Growth US in 4 weeks. Coding ====== Diagnoses Z36.3: Encounter for screening for malformations O99.013: Anemia complicating D58.2: Other hemoglobinopathies Procedures 14172: [place] [address]: Biophysical Profile W NST Sandata PACS Anatomical Region Laterality Modality Other 03/26/2025 10:5 6 AM CORPORATE RELATIONS DIRECTOR Madhavi Rivera MD [facility] ORDERABLES Edited Result - Final documented in this encounter Visit Diagnoses Diagnosis Hemoglobinopathy: Sickle S-HPFH disease.- Primary Other hemoglobinopathies History of pulmonary embolism Personal history of pulmonary embolism Fourth (HCC) state, incidental Encounter for ultrasound to assess growth (HCC) Encounter for other screening follow-up (HCC) Sickle cell disease without crisis (HCC) Hb-SS disease without crisis History of herpes simplex type 2 infection Personal history of other infectious and parasitic disease History of delivery, currently (HCC) Previous delivery, unspecified as to episode of care or not applicable High risk multigravida in second trimester (HCC) documented in this encounter
--- OUTSIDE RECORDS SUMMARY | 2025-03-26 14:12 | XMS_ITS | Clinical Summary ---
Author Organization [facility] Address [facility] [place] [address] Care Team Providers Care Instructor Pilot Name Role Phone Marcy Garcia PA-C Primary Care Provider [phone] Allergies Active Allergy Reactions Criticality Noted Date Comments Ascorbate Rash Medium 07/08/2019 Capsicum Hives Medium 03/22/2023 Elderberry-Vitamin C-Zinc Rash Low 07/08/2019 Jalapeno peppers Misc Natural Products Hives Medium 11/03/2023 Strawberries Hives,Itching Medium 05/18/2015 [place] Extract Rash Low 07/08/2019 Medications topiramate (TOPAMAX) [...] Cancer Screening 1995 Annual Physical 07/18/1998 Hepatitis A Vaccines (2 of 2 - 2-dose series) 2012 01/20/2012 Hepatitis C 07/18/2013 PHQ-2 (Physician [place]) 05/15/2024 COVID-19 Vaccine ( season) 2025 01/24/2022, 01/03/2022 Influenza Adult (#1) 2025 02/10/2022, 02/26/20 15 DTaP, Tdap and Td Vaccines (9 - [...] complete this topic HPV Vaccines Completed 06/25/2014, 11/2011, 12/29/2009 Meningococcal B Vaccine Aged Out No l onger eligible based on patient's age to complete this topic RSV Immunizations Under 20 Months Aged Out No longer eligible based on patient's age to complete this topic Insurance [employer] Care Teams Instructor Pilot Relationship Specialty Start Date End Date Marcy Garcia PA-C [address] [place] [id number] PCP - General PHYSICIAN CARGO SURVEYOR 11/07/24
--- OUTSIDE RECORDS SUMMARY | 2025-03-26 14:12 | XMS_ITS | Clinical Summary ---
Author Organization [facility] Address [address] [place] [address] Care Team Providers Care Process Pumper Name Role Phone Unavailable Primary Care Provider Unavailabl e Allergies Active Allergy Reactions Criticality Noted Date Comments Ascorbic Acid Rash Medium 07/08/2019 [place] Pepper Extract Urticaria Medium 03/22/2023 Gamerco Hives,Itching Medium 05/18/2015 Medications Medrol, Lee, 4 [...] on file Legal Sex Female 9:09 PM SUPERVISOR PATCHING Gender Identity Female 09/20/2023 9:49 AM CDT [...] 10:43 AM CDT Height 170.2 cm (5' 7) 01/23/2023 1:27 PM CDT Body Mass Index 23.65 01/23/2023 1:27 PM CDT Plan of Treatment Health Maintenance Due Date Last Done Comments Cervical Cancer Screening 1995 Depression Screening 1995 Hepatitis C Screening 1995 Pneumococcal vaccine <65 (2 of 3 - PPSV23, PCV20, or PCV21) 08/29/2000 07/04/2000 Meningococcal B Vaccine (1 o f 4 - Increased Risk) 07/18/2005 Regular Well Visit/Exam 18-64 07/18/2013 Influenza Vaccine (#1) 2025 , 04/17/2019, 03/21/2018, Additional history exists DTaP/Tdap/Td Vaccine (10 - T d or Tdap) 08/05/2031 08/04/2021, 01/13/2017, 04/28/2015, Additional history exists Varicella Vaccines Completed 12/29/2009, 07/04/2000 HPV Vaccines Completed 06/25/2014, 11/2011, 12/29/2009 Hepatitis B Screening Completed 03/20/2019 , 07/21/2017, 02/18/2017, Additional history exists Insurance [facility] [employer] Address: [address] [place] [address] [facility] [employer] Address: [facility] [id number] [place] [address] [facility]
--- OUTSIDE RECORDS SUMMARY | 2025-03-26 14:12 | XMS_ITS | Clinical Summary ---
Author Organization [facility] Address [address] [facility] [place] [address] Care Team Providers Care Tongsman Name Role Phone Unavailable Primary Care Provider Unavailabl e Source Comments [facility],non-owned Affiliates and Associated Physician Practices is amultiple site organization consisting of ambulatory clinics and hospital sitesin [place], [place], [place] and [place]. This disclosure is being madepursuant to the Care Everywhere program and may not contain all information available regarding this patient. Last updated 18.[facility] Allergies No known active allergies Medications * Be aware that medications may not be up to date on this document. Alwaysverify current medications with the patient. enoxaparin (Lovenox) 40 MG/0.4ML injectionIndica tions:Deep Vein Thrombosis Inject 0.4 mL subcutaneously once daily Reasons: Blood Clot in a Deep Vein Active Vit-DSS-Fe Fum-FA ( vitamin with iron) tablet Take 1 (one) tablet by mouth once daily Active magnesium oxide (Mag-Ox) 400 MG tablet Take 1 (one) tablet by mouth once daily 30 tablet 4 01/23/20 25 Active Additional Information Patient not taking.Reason: insurance did not cover, Informant: Patient, Reported on 02/19/2025 ferrous sulfate 325 (65 FE) MG tablet Take 1 (one) tablet by mouth once daily 100 tablet 5 03/03/20 25 Active azithromycin (Zithromax) 250 MG tablet Take 2 tablets on day 1, then take 1 tablet daily for 4 days 6 tablet 03/03/20 25 Active support hose maternity waist high firm compression (Jobst) support hose Apply 1 (one) Each to affected area as directed 1 Each 03/26/20 25 Active ferrous sulfate 325 (65 FE) MG tablet Take 1 (one) tablet by mouth once daily 100 tablet 5 02/20/20 25 025 Discontin ued(Reord er) azithromycin (Zithromax) 250 MG tablet Take 2 tablets on day 1, then take 1 tablet daily for 4 days 6 tablet 02/20/20 Discontin ued(Reord er) Active Problems Problem Noted Date Diagnosed Date History of pulmonary embolism 12/25/2024 Hemoglobinopathy: Sickle S-HPFH disease. 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 Encounters Date Type Department Care Team Description 03/26/2025 9:45 AM SHEET METAL SHOP HELPER Hospital Encounter [facility] [address] [place] [id number] Rene Velez MD Mead, Judith A, MD 02/27/2025 Refill [facility] [address] [place] [phone] Nirmala Melton, TRACK BROOM OPERATOR-STEEL MELTER MEDICATION REFILL 02/19/2025 11:10 AM CDT - 02/19/2025 11:59 PM CDT Hospital Encounter [facility] [address] [place] [phone] Lucero Alberto MD Discharge Disposition: Home or Self Care 02/19/2025 11:09 AM CDT Hospital Encounter [facility] [address] [place] [phone] Lucero Alberto MD Discharge Disposition: Home or Self Care 01/22/2025 1:45 PM CDT - 01/22/2025 11:59 PM CDT Hospital Encounter [facility] [address] [place] [phone] Lucero Alberto MD Discharge Disposition: Home or Self Care 12/25/2024 1:25 PM CDT - 12/25/2024 11:59 PM CDT Hospital Encounter [facility] [address] [place] [phone] Lucero Alberto MD Discharge Disposition: Home or Self Care 12/25/2024 1:00 PM CDT - 12/25/2024 1:24 PM CDT Hospital Encounter [facility] [address] [place] [address] [phone] Lucero Alberto MD Discharge Disposition: Home or Self Care from Last 3 Months Social History Tobacco Use Types Packs/Day Years Used Date Smoking Tobacco: Never Assessed Smokeless Tobacco: Never Tobacco Cessation:Counseling Given: Not Answered Alcohol Use Standard Drinks/Week Comments Not Currently [...] Comments Blood Pressure 105/68 03/26/2025 10:05 AM SHEET METAL SHOP HELPER Pulse 96 03/26/2025 10:05 AM SHEET METAL SHOP HELPER Temperature - - Respiratory Rate - - Oxygen Saturation - - Inhaled Oxygen Concentration - - Weight 86.2 kg (190 lb) 03/26/2025 10:05 AM SHEET METAL SHOP HELPER Height 170.2 cm (5' 7) 02/19/2025 11:38 AM CDT Body Mass Index 29.76 02/19/2025 11:38 AM CDT Plan of Treatment Upcoming Encounters Date Type Department Care Team (Late st Contact Info) Description 04/23/2025 8:15 AM SHEET METAL SHOP HELPER Appointment [facility] [phone] [phone] Health Maintenance Due Date Last Done Comments HIB VACCINE (1 of 1 - Risk 1 -dose series) 10/18/1996 MENINGOCOCCAL GROUPS A/C/Y/W VACCINE (1 - Risk 2-dose series) 07/18/1997 MENINGOCOCCAL (Group B) VACC INE SHARED DECISION-MAKING (1 of 4 - Increased Risk) 07/18/2005 HIV SCREENING 07/18/2010 HEPATITIS C SCREENING 07/14/2013 DTAP/TDAP/TD VACCINES (1 - Tdap) 07/18/2014 HEPATITIS B VACCINE (1 of 3 - 19+ 3-dose series) 07/18/2014 PNEUMOCOCCAL VACCINE (1 of 2 - PCV) 07/18/2014 PAP SMEAR 07/18/2016 HPV VACCINE (1 - 3-dose SCDM series) 07/18/2022 DEPRESSION SCREENING 05/15/2024 COVID-19 VACCINE (3 - 2024-2 6 season) 2025 01/24/2022, 01/03/2022 INFLUENZA VACCINE (#1) 2025 , 02/07/2023, 02/10/2022, Additional history exists OB-ONE HOUR GLUCOSE 01/30/2025 OB-TDAP CURRENT 02/06/2025 04/28/2015, OB-RHOGAM INJECTION 02/13/2025 Respiratory Syncytial Virus (RSV) Vaccine Pt: or over 60 yrs (1 - Risk 1-dose series) 03/13/2025 OB-GROUP B STREP SCREEN 04/03/2025 ZOSTER VACCINE (1 of 2) 07/18/2045 Procedures Procedure Name Priority Date/Time Associated Diagnosis Comments BIOPHYSICAL PROFILE W NST Routine 03/26/2025 10:56 AM SHEET METAL SHOP HELPER Hemoglobinopathy: Sickle S-HPFH disease. History of pulmonary embolism Fourth (HCC) Encounter for ultrasound to assess growth (HCC) High risk multigravida in second trimester (HCC) Encounter for other screening follow-up (HCC) SONOGRAM - COMPLETE Routine 02/19/2025 1 1:18 AM CDT History of DVT (deep vein thrombosis) Sickle cell disease without crisis (HCC) High risk multigravida in second trimester (HCC) History of herpes simplex type 2 infection SONOGRAM - COMPLETE Routine 01/22/2025 1 :51 PM CDT History of DVT (deep vein thrombosis) Sickle cell disease without crisis (HCC) High risk multigravida in second trimester (HCC) History of herpes simplex type 2 infection SONOGRAM - COMPLETE Routine 12/25/2024 1 :22 PM CDT History of DVT (deep vein thrombosis) Sickle cell disease without crisis (HCC) High risk multigravida in second trimester (HCC) History of herpes simplex type 2 infection from Last 3 Months Results * Biophysical Profile w NST (03/26/2025 10:56 AM SHEET METAL SHOP HELPER) Linked Results Indication ======== Encounter for ultrasound to assess growth Sickle cell anemia w/o crisis complicating History ====== OB History 4. Para 3 [id number] 1. live 2015. Gest. age 39 w [...] 4 lb 15 oz EFW by Hadlock ([id number]) appropriate Growth Overview Exam date GA BPD [...] volume is normal. The biophysical profile is 10. FACULTY MEMBER consult today. Follow-up ======== Continue twice weekly testing. Growth US in 4 weeks. Coding ====== Diagnoses Z36.3: Encounter for screening for malformations O99.013: Anemia complicating D58.2: Other hemoglobinopathies Procedures 11525: [place] [address]: Biophysical Profile W NST [facility] [employer] PACS Anatomical Region Laterality Modality Other 03/26/2025 10:5 6 AM SHEET METAL SHOP HELPER Madhavi Rivera MD [facility] ORDERABLES Edited Result - Final * Sonogram - Complete (02/19/2025 11:18 AM CDT) Only the most recent of3 resultswithin the time period is included. Linked Results Indication ======== Encounter for ultrasound to assess growth Sickle cell anemia w/o crisis complicating History ====== OB History 4. Para 3 [id number] 1. live 2015. Gest. age 39 w [...] 170 cm, 5 ft 7 in. Weight 81 kg, 178 lb. Initial weight 73 kg, 160 lb. BMI 27.88 kg/m . Initial BMI 25.06 kg/m . Weight gain 8 kg, 18 lb Method ====== Transabdominal ultrasound. View: Good view ========= James . Number of fetuses: 1 Dating ====== Date Details Gest. age BAR LMP 08/01/2024 28 w + 6 d 05/08/2025 U/S 02/19/2025 based upon AC, BPD, Femur, HC 28 w + 4 d 05/10/2025 Assigned dating based on the LMP, selected on 12/25/2024 28 w + 6 d 05/08/2025 General Evaluation Cardiac activity present. FHR 159 bpm. Presentation: cephalic Placenta: Placental site: right lateral. Small placenta Umbilical cord: Cord vessels: 3 vessel cord - previously documented. Insertion site: normal insertion - previously documented Amniotic fluid: Amount of AF: normal. MVP 3.9 cm. SHAUNA 12.1 cm. Q1 2.8 cm, Q2 3.9 cm, Q3 3.1 cm, Q4 2.3 cm Biometry BPD 72.4 mm 29w 0d 44% Hadlock HC 257.4 mm 28w 0d 5% Hadlock AC 241.2 mm 28w 3d 29% Hadlock Femur 54.6 mm 28w 6d 34% Hadlock Humerus 49.4 mm 29w 0d 45% Jackelin HC / AC 1.07 Weight Calculation: EFW 1,245 g 27% Hadlock EFW (lb,oz) 2 lb 12 oz EFW by Hadlock ([id number]-FL) appropriate Growth Overview Exam date GA BPD (mm) HC (mm) AC (mm) FL (mm) HL (mm) EFW (g) 12/25/2024 20w 6d 49.4 53% 177.7 16% 155.2 38% 34 35% 33.3 62% 368 34% 01/22/2025 24w 6d 62.5 60% 214.4 3% 203.3 43% 46.1 51% 43.7 79% 753 44% 02/19/2025 28w 6d 72.4 44% 257.4 5% 241.2 29% 54.6 34% 49.4 45% 1245 27% Anatomy The following structures appear normal: Heart / Thorax 4-chamber view. Abdomen Stomach. Kidneys. Bladder. sex: male. Impression ========= Single, live, intrauterine at 28w 6d The size is appropriate. The amniotic fluid volume is normal. No major malformations were seen within the limits of ultrasound. FACULTY MEMBER consult today Follow-up ======== Growth US in 4 weeks. Coding ====== Diagnoses Z36.3: Encounter for screening for malformations O99.013: Anemia complicating D58.2: Other hemoglobinopathies Procedures 90626: US Preg Uterus Follow Up [facility] [employer] PACS Anatomical Region Laterality Modality Other 02/19/2025 11:1 8 AM CDT Madhavi Rivera MD [facility] ORDERABLES Edited Result - Final from Last 3 [place] [address] [facility]
[2025-03-26 16:11] LABS: Hematocrit 30.6 % (37.0-47.0); Hemoglobin 10.4 g/dL (12.0-15.0); Immature Granulocyte Percent A 0.5 % (0-0.5); Immature Platelet Fraction Pct 9.2 % (0.9-11.2); Immature Reticulocyte Fraction 39.7 % (3.0-15.9); Lymphocytes Absolute Auto 1.42 K/mm3 (0.9-3.2); Mean Corpuscular HGB Conc 34.0 g/dl (32-36); Mean Corpuscular Hemoglobin 25.1 pg (26-34); Mean Corpuscular Volume 73.7 fl (80-100); Nucleated Red Blood Cells Absolute Auto 0.000 K/mm3 (0.0-0.012); Nucleated Red Blood Cells Perc 0.0 % (0.0-0.2); Platelet Count Result 169 k/mm3 (150-375); Red Blood Count 4.15 M/mm3 (4.2-5.4); Reticulocyte Hemoglobin Conten 24.8 pg (28.2-36.6); Reticulocytes Absolute 0.10 10^6/uL (0.02-0.10); White Blood Count 5.5 K/mm3 (4.5-10.0)
[2025-03-26 16:55] LABS: Ferritin 8.81 ng/mL (6.24-137)
[2025-03-26 17:18] LABS: Schistocytes None Seen
[2025-03-26 17:19] LABS: Anisocytosis 3+; Microcytosis 1+ (NORMAL); Polychromasia Occasional
[2025-03-26 17:20] LABS: Band Neutrophils Percent 0 % (0-6)
== END 2025-03-26 13:07 | disposition home or self-care (01) ==
LOC: ANHGOSHLAB 13:07
PROVIDERS: Visit Provider Nurse Practitioner Women's Health
DX: D58.2 Other hemoglobinopathies (principal)
CPT/HCPCS: 36415; 82728; 85025; 85046; 85055

== ENCOUNTER 2025-04-02 14:00 | Outpatient (RCR) | payer OTHER, SELFPAY ==
--- NOTE | 2025-03-06 09:56 | OPREHPOC ---
Outpatient Therapy Plan of Care This is a Multidisciplinary Plan of Care that may contain components documented by all disciplines (PT, OT, and ST.) PT Problem 1 PT Problem #1 Knowledge Deficit PT Goal 1 Goal / Goal Update 1. Patient to demonstrate independence with HEP for improved self-reliance of symptom management. Target Visit 4 PT Problem 2 PT Problem #2 Pain PT Goal 1 Goal / Goal Update 1. Patient to decrease subjective reports of pain to <3/10 for improved ADL tolerance. 2. Patient to report >50% improvement in quantity and quality of sleep due to decreased hip/SIJ pain . Target Visit 8 PT Problem 3 PT Problem #3 Impaired Functional Mobility PT Goal 1 Goal / Goal Update 1. Patient to improve confidence and understanding of gait mechanics and stair negotiation with cane to improve community navigation. 1. Pt will demonstrate the ability to find pelvic neutral and appropriately engage TRAM with no cues from PT. Target Visit 8
--- NOTE | 2025-03-06 09:57 | PTOPEVAL1 ---
Assessment and note entered by Spencer Cardona PT Evaluation Information Assessment Status Evaluation ICD-10 Condition Codes (PT) Pain in right hip M25.551 Subjective Information Pt states she had an initial injury to her hip while see was in the . She states now that she 31 weeks and the pain has progressively gotten worse. Pt states she had similar symptoms with her previous 3 years ago. She states she now her pain is on her R side on her lateral hip and closer sacrum. Pt states she is currently using a cane that was recommended by her OB and was sent to PT. Pt states she now has difficulty performing all ADLSs and increased pain with walking and trying to sleep. She reports some pelvic floor dysfunction. Reported Pain Level Pain Score 8: Self Report Assessment PT Clinical Summary Patient presents to physical therapy with a primary issue of increased hip and SI joint pain that has worsened with . Pt is now 31 weeks ambulating with cane due to increased pain and decreased mobility. Patient demonstrates hip and core weakness, decreased mobility, abnormal posture, gait deficit, and decreased flexibility that limit their ability to perform activities of daily living and functional movements. Patient will benefit from skilled physical therapy to address the above listed deficits and return to prior level of function. Additionally Pt was educated on pelvic maryjane physical therapy and will seek referral for pelvic floor PT. Home exercise program instructed and written handout provided, exercises tolerated well with no adverse effects to note post-session. Patient was educated on importance of adherence to home exercise program. Patient was also educated on anatomy, prognosis, home modalities, and plan of care. Plan of Care Interventions Hot Pack/Cold Pack,Manual Therapy,Neuro Re- education,Therapeutic Activities,Therapeutic Exercise,Other Other Interventions Pelvic floor physical therapy PT Services Indicated Yes Treatment Frequency and 1-2x week for 8 visits Duration These treatments will address the objective and functional deficits as defined above. The patient will be advanced safely and appropriately in order for the patient to progress towards his/her prior level of function. Additional exercises will be introduced and as well as a comprehensive home exercise program upon discharge, if needed, ?to ensure carryover of functional gains achieved in the clinic. This treatment plan has been reviewed and agreement upon by the patient.
--- NOTE | 2025-03-13 11:33 | PTOPREEVAL ---
Assessment and note entered by Carolin Isaac DPT Evaluation Information Assessment Status Re-evaluation ICD-10 Condition Codes (PT) Pain in right hip M25.551,Difficulty Walking R26.2 ,Weakness R53.1,Pelvic and perineal pain R10.2, Urge incontinence N39.41,Mixed incontinence N39.46 ,Stress incontinence N39.3 Subjective Information Pt is in R side of her sacrum and also reports pelvic pain and pressure. Pain increases with walking, standing, changing positions. Pt is 32 weeks , 3 previous pregnancies. First 2 deliveries were vaginal, third was and is scheduled for a repeat this time. Had pain with her most recent as well. Reports a injury that is greatly exacerbated by the . Voids at least 10 times a day, wakes up 6 times at night. Denies pain with urination but does have pressure with just sitting on the toilet. Urinary incontinence multiple times a day, reports stress and incontinence. Has used pads and had to change clothes at times. Can hold urge to void a couple minutes but tries to go as soon as she feels the urge. BM 2 times a week recently, reports straining and will get bleeding from hemorrhoids. Patient reports pain with intercourse that has worsened since her second child. No other CLERICAL CAR CHECKER diagnoses or b/b diagnoses. Sees OB-CLERICAL CAR CHECKER every 2 weeks currently. Patient goal: pain relief and feel better Reported Pain Level Pain Score 4: Self Report Assessment PT Clinical Summary The patient presents this date to evaluate pelvic floor therapy needs in addition to hip pain. The patient reports significant pelvic pain, and urinary incontinence, urgency, and frequency that are highly impacting daily function. She presents with tenderness to palpation of pubic symphysis, LE weakness, and likely pelvic floor weakness that are contributing to her symptoms. She will benefit from therapy in order to improve function as progresses. Plan of Care Interventions Gait Training,Hot Pack/Cold Pack,Manual Therapy, Neuro Re-education,Patient/Caregiver Education, Therapeutic Activities,Therapeutic Exercise,Other Other Interventions Pelvic floor physical therapy PT Services Indicated Yes Treatment Frequency and 1-2 times a week for 8 visits Duration These treatments will address the objective and functional deficits as defined above. The patient will be advanced safely and appropriately in order for the patient to progress towards his/her prior level of function. Additional exercises will be introduced and as well as a comprehensive home exercise program upon discharge, if needed, ?to ensure carryover of functional gains achieved in the clinic. This treatment plan has been reviewed and agreement upon by the patient.
--- NOTE | 2025-03-13 11:33 | OPREHPOC ---
Outpatient Therapy Plan of Care This is a Multidisciplinary Plan of Care that may contain components documented by all disciplines (PT, OT, and ST.) PT Problem 1 PT Problem #1 Knowledge Deficit PT Goal 1 Goal / Goal Update 1. Patient to demonstrate independence with HEP for improved self-reliance of symptom management. 2. Patient will verbalize urge suppression strategies Target Visit 4 PT Problem 2 PT Problem #2 Pain PT Goal 1 Goal / Goal Update 1. Patient to decrease subjective reports of pain to <3/10 for improved ADL tolerance. 2. Patient to report >50% improvement in quantity and quality of sleep due to decreased hip/SIJ pain . Target Visit 8 PT Problem 3 PT Problem #3 Impaired Functional Mobility PT Goal 1 Goal / Goal Update 1. Patient to improve confidence and understanding of gait mechanics and stair negotiation with cane to improve community navigation. 1. Pt will demonstrate the ability to find pelvic neutral and appropriately engage TRAM with no cues from PT. Target Visit 8 PT Problem 4 PT Problem #4 Impaired Functional ADLs PT Goal 1 Goal / Goal Update 1. Patient will report urinary incontinence no more than 1 time a day 2. Patient will be able to hold urge to void at least 10 minutes Target Visit 8
--- NOTE | 2025-03-18 12:36 | PCPTNOTE ---
Pt called to cancel her appointment this date.
--- NOTE | 2025-03-20 13:52 | PCPTNOTE ---
Patient did not show up for appointment 03/20/25. Left voicemail for patient to reschedule.
--- NOTE | 2025-03-31 15:19 | PCPTNOTE ---
Patient called to cancel appointment 03/31/25, offered to reschedule but patient only available Monday and is already scheduled that date.
--- NOTE | 2025-04-07 13:42 | PCPTNOTE ---
Patient cancelled appointment 04/07/25 due to not feeling well.
--- NOTE | 2025-04-14 13:52 | PCPTNOTE ---
Patient called to cancel appointment 04/14/25.
--- NOTE | 2025-05-01 08:03 | PTOPDC ---
Assessment and note entered by Carolin Isaac DPT Evaluation Information Assessment Status Discharge - Pt Not Present ICD-10 Condition Codes (PT) Pain in right hip M25.551,Difficulty Walking R26.2 ,Weakness R53.1,Pelvic and perineal pain R10.2, Urge incontinence N39.41,Mixed incontinence N39.46 ,Stress incontinence N39.3 Subjective Information - Assessment PT Clinical Summary Patient is scheduled for and this case will be discharged. She will need a new script to resume PT once cleared after delivery. Plan of Care PT Services Indicated No
== END 2025-05-01 09:17 | disposition home or self-care (01) ==
LOC: ANHGOSHPT 14:00
PROVIDERS: Visit Provider Obstetrics & Gynecology
DX: M25.559 Pain in unspecified hip (principal)
CPT/HCPCS: 97110; 97112; 97116; 97140; 97162; 97530

== ENCOUNTER 2025-04-07 14:41 | Observation (INO) | payer OTHER, SELFPAY ==
[2025-04-07] VITALS (24 sets, daily range): BP systolic 92–114; BP diastolic 55–73; PULSE 81–96; O2SAT 95–100; BMI 28.6
[2025-04-07 15:09] LABS: Hematocrit 30.3 % (37.0-47.0); Hemoglobin 10.5 g/dL (12.0-15.0); Immature Granulocyte Percent A 0.5 % (0-0.5); Immature Platelet Fraction Pct 8.1 % (0.9-11.2); Lymphocytes Absolute Auto 0.91 K/mm3 (0.9-3.2); Mean Corpuscular HGB Conc 34.7 g/dl (32-36); Mean Corpuscular Hemoglobin 24.6 pg (26-34); Mean Corpuscular Volume 71.0 fl (80-100); Nucleated Red Blood Cells Absolute Auto 0.000 K/mm3 (0.0-0.012); Nucleated Red Blood Cells Perc 0.0 % (0.0-0.2); Platelet Count Result 154 k/mm3 (150-375); Red Blood Count 4.27 M/mm3 (4.2-5.4); White Blood Count 4.0 K/mm3 (4.5-10.0)
[2025-04-07 15:18] LABS: Alanine Aminotransferase 13 U/L (6-35); Albumin Level 3.7 g/dL (3.5-5.1); Alkaline Phosphatase 99 U/L (38-126); Anion Gap 6 mmol/L (4-12); Aspartate Amino Transferase 27 U/L (14-36); Bilirubin,Total 0.6 mg/dL (0.2-1.3); Blood Urea Nitrogen 7 mg/dL (7-17); Calcium 9.3 mg/dL (8.4-10.2); Carbon Dioxide 20 mmol/L (22-30); Chloride 106 mmol/L (98-107); Estimated Glomerular Filt Rate > 60; Glucose 98 mg/dL (65-110); Potassium 3.9 mmol/L (3.4-5.0); Sodium 132 mmol/L (137-145); Total Protein 7.5 g/dL (6.3-8.2); Uric Acid 6.9 mg/dL (2.5-7.5)
--- NOTE | 2025-04-07 15:41 | OBADM ---
1440 This patient, Trice Rock, admitted to the OB room OB Post 117 for observation with c/o SOB, light headed, and GIRALDO. Patient/family oriented to hospital policies and general routines including ID bracelet, bed and alarms, visiting hours, pain management, procedures, bathroom and other care routines, personal items, smoking policy, room service/diet, and visiting hours. Patient/Family are encouraged to report perceived risks to care and to ask questions if they do not understand what they are told or what they should do.
[2025-04-07 15:44] LABS: Band Neutrophils Percent 0 % (0-6); Schistocytes None Seen
[2025-04-07 15:45] LABS: Add Urine Microscopic? YES; Appearance Urine Clear (Clear); Glucose Urine UA Negative (Negative); Leukocyte Esterase Ur 1+ LEU/UL (Negative); Nitrate Urine Negative (Negative); Non Pathogenic Casts 0-2; Specific Grav Ur 1.007 (1.001-1.035)
[2025-04-07 15:45] LABS: Anisocytosis 2+; Microcytosis 1+ (NORMAL)
[2025-04-07 15:56] LABS: Total Protein Urine Random 15 mg/dL; Ur Ttl Prot Creatinine Ratio 0.30 mg/mg (0-0.20)
--- NOTE | 2025-04-07 16:42 | PC.NURSE ---
Dr. Mejía called and updated on patient CBC/CMP results, respiratory panel being re-drawn, VS stable, patient reports decreased light headedness since admission, PC ratio .3. Orders received for 24hour urine for patient to be discharged home with, to give patient 1g tylenol for GIRALDO, and to call back once respiratory panel results.
[2025-04-07] MEDS: ACETAMINOPHEN 500 MG TABLET 1000 MG PO (16:49)
--- OUTSIDE RECORDS SUMMARY | 2025-04-07 17:33 | XMS_ITS | Clinical Summary ---
Author Organization [facility] Address [address] [place] [address] Care Team Providers Care Ramp Service Agent Name Role Phone Unavailable Primary Care Provider Unavailabl e Allergies Active Allergy Reactions Criticality Noted Date Comments Ascorbic Acid Rash Medium 07/08/2019 [place] Pepper Extract Urticaria Medium 03/22/2023 [place] Hives,Itching Medium 05/18/2015 Medications Medrol, Lee, 4 [...] on file Legal Sex Female 9:09 PM REGULATOR PIN INSERTER Gender Identity Female 09/20/2023 9:49 AM CDT [...] , 07/21/2017, 02/18/2017, Additional history exists Insurance [facility] [employer] Address: [address] [place] [address] [facility] [employer] [employer] Address: [facility] [id number] [place] [address] [facility]
--- OUTSIDE RECORDS SUMMARY | 2025-04-07 17:33 | XMS_ITS | Clinical Summary ---
Author Organization [facility] Address [facility] [place] [address] Care Team Providers Care Rough Rice Grader Name Role Phone Marcy Garcia PA-C Primary Care Provider [phone]- [phone] Allergies Active Allergy Reactions Criticality Noted Date Comments Ascorbate Rash Medium 07/08/2019 Capsicum Hives Medium 03/22/2023 Elderberry-Vitamin C-Zinc Rash Low 07/08/2019 Jalapeno peppers Misc Natural Products Hives Medium 11/03/2023 Strawberries Hives,Itching Medium 05/18/2015 [place] Extract Rash Low 07/08/2019 Medications topiramate (TOPAMAX) [...] 2012 01/20/2012 Hepatitis C 07/18/2013 PHQ-2 (Physician [place]) 05/15/2024 COVID-19 Vaccine ( season) 2025 01/24/2022, [...] this topic Insurance [employer] Care Teams Rough Rice Grader Relationship Specialty Start Date End Date Marcy Garcia PA-C [address] [place] [phone] PCP - General PHYSICIAN BUTANE COMPRESSOR OPERATOR 11/07/24
--- OUTSIDE RECORDS SUMMARY | 2025-04-07 17:34 | XMS_ITS | Clinical Summary ---
Author Organization [facility] Address [address] [facility] [place] [address] Care Team Providers Care Customs Brokerage Manager Name Role Phone Unavailable Primary Care Provider Unavailabl e Source Comments [facility],non-owned Affiliates and Associated Physician Practices is amultiple site organization consisting of ambulatory clinics and hospital sitesin [place], [place], [place] and [place]. This disclosure is being madepursuant to the Care Everywhere program and may not contain all information available regarding this patient. Last updated 18.[facility] Allergies No known active allergies Medications * [...] as directed 1 Each 03/26/20 25 Active Active Problems Problem Noted Date Diagnosed Date History of pulmonary embolism 12/25/2024 Hemoglobinopathy: Sickle S-HPFH disease. 025 Overview (12/25/2024): Hematology C 03/22/23 Herpes simplex type 2 (HSV-2 ) [...] Department Care Team Description 03/26/2025 9:45 AM STEAM AND GAS TURBINE ASSEMBLER - 03/26/2025 11:59 PM STEAM AND GAS TURBINE ASSEMBLER Hospital Encounter [facility] [address] [place] [id number] Rene Velez MD Mead, Judith A, MD Discharge Disposition: Home or Self Care 02/27/2025 Refill [facility] [address] [place] [phone] Nirmala Melton, MANAGER MAIL-PAVER MEDICATION REFILL 02/19/2025 11:10 AM CDT - 02/19/2025 11:59 PM CDT Hospital Encounter [facility] [address] [place] [phone] Lucero Alberto MD Discharge Disposition: Home or Self Care 02/19/2025 11:09 AM CDT Hospital Encounter [facility] [address] [place] [id number] Lucero Alberto MD Discharge Disposition: Home or Self Care 01/22/2025 1:45 PM CDT - 01/22/2025 11:59 PM CDT Hospital Encounter [facility] [address] [place] [phone] Lucero Alberto MD Discharge Disposition: Home or [...] Comments Blood Pressure 105/68 03/26/2025 10:05 AM STEAM AND GAS TURBINE ASSEMBLER Pulse 96 03/26/2025 10:05 AM STEAM AND GAS TURBINE ASSEMBLER Temperature - - Respiratory Rate - - Oxygen Saturation - - Inhaled Oxygen Concentration - - Weight 86.2 kg (190 lb) 03/26/2025 10:05 AM STEAM AND GAS TURBINE ASSEMBLER Height 170.2 cm (5' 7) 02/19/2025 11:38 AM CDT Body Mass Index 29.76 02/19/2025 11:38 AM CDT Plan of Treatment Upcoming Encounters Date Type Department Care Team (Late st Contact Info) Description 04/23/2025 8:15 AM STEAM AND GAS TURBINE ASSEMBLER Appointment [facility] [address] [place], [place] [id number] Health Maintenance Due Date Last Done Comments [...] 2025 01/24/2022, 01/03/2022 INFLUENZA VACCINE (#1) 2025 4, 02/07/2023, 02/10/2022, Additional history exists OB-ONE HOUR GLUCOSE 01/30/2025 OB-TDAP CURRENT 02/06/2025 04/28/2015, OB-RHOGAM INJECTION 02/13/2025 Respiratory Syncytial Virus (RSV) Vaccine Pt: or over 60 yrs (1 - Risk 1-dose series) 03/13/2025 OB-GROUP B STREP SCREEN 04/03/2025 ZOSTER VACCINE (1 of 2) 07/18/2045 Procedures Procedure Name Priority Date/Time Associated Diagnosis Comments BIOPHYSICAL PROFILE W NST Routine 03/26/2025 10:56 AM STEAM AND GAS TURBINE ASSEMBLER Hemoglobinopathy: Sickle S-HPFH disease. History of pulmonary [...] Biophysical Profile w NST (03/26/2025 10:56 AM STEAM AND GAS TURBINE ASSEMBLER) Linked Results Indication ======== Encounter for ultrasound to assess growth Sickle cell anemia w/o crisis complicating History ====== OB History 4. Para 3 [id number] 1. live 2015. Gest. age 39 w [...] tone 2: Amniotic fluid volume NST: reactive /10 Biophysical profile score Non Stress Test NST [...] 4 lb 15 oz EFW by Hadlock ([id number]) appropriate Growth Overview Exam date GA BPD [...] is normal. The biophysical profile is 10/10. MANAGER SKILLED consult today. Follow-up ======== Continue twice weekly testing. Growth US in 4 weeks. Coding ====== Diagnoses Z36.3: Encounter for screening for malformations O99.013: Anemia complicating D58.2: Other hemoglobinopathies Procedures 70079: [place] [address]: Biophysical Profile W NST [email or web address] PACS Anatomical Region Laterality Modality Other 03/26/2025 10:5 6 AM STEAM AND GAS TURBINE ASSEMBLER us Madhavi Rivera MD [facility] ORDERABLES Edited Result - Final * Sonogram - Complete (02/19/2025 11:18 AM CDT) Only the most recent of2 resultswithin the time period is included. Linked Results Indication ======== Encounter for ultrasound to assess growth Sickle cell anemia w/o crisis complicating History ====== OB History 4. Para 3 [id number] 1. live 2015. Gest. age 39 w [...] 2 lb 12 oz EFW by Hadlock ([id number]) appropriate Growth Overview Exam date GA BPD [...] were seen within the limits of ultrasound. MANAGER SKILLED consult today Follow-up ======== Growth US in 4 weeks. Coding ====== Diagnoses Z36.3: Encounter for screening for malformations O99.013: Anemia complicating D58.2: Other hemoglobinopathies Procedures 70536: US Preg Uterus Follow Up [employer] PACS Anatomical Region Laterality Modality Other 02/19/2025 11:1 8 AM CDT Madhavi Rivera MD [facility] ORDERABLES Edited Result - Final from Last 3 [place] [id number] [facility]
[2025-04-07 17:37] LABS: Influenza A QL RT-PCR Negative (Negative); Influenza B QL RT-PCR Negative (Negative); RSV RNA, RT-PCR Negative (Negative); SARS-CoV-2 RNA PCR Negative (Negative)
--- NOTE | 2025-04-07 17:39 | PC.NURSE ---
Dr. Mejía called and updated on patient respiratory panel negative. Orders received to discharge patient home with 24 hour urine, encourage rest and hydration.
--- NOTE | 2025-04-08 09:59 | PM.OBTRLD ---
OB - Triage/Final Diagnosis Visit Information Date of evaluation: 04/07/25 Reason for evaluation: other (headache) Comments/Additional reasons for admission: I have assessed the risk for this patient, Trice Rock, and determined that she would benefit from observation care. Evaluation Laboratory results: Laboratory Tests 04/07/25 04/07/25 04/07/25 14:57 14:58 14:59 WBC 4.0 L RBC 4.27 Hgb 10.5 L Hct 30.3 L MCV 71.0 L MCH 24.6 L MCHC 34.7 RDW 16.8 H Plt Count 154 MPV TNP Immature Gran % (Auto) 0.5 Neut % (Auto) 70.7 Lymph % (Auto) 22.6 [place] % (Auto) 5.5 Eos % (Auto) 0.5 Baso % (Auto) 0.2 Lymph # (Auto) 0.91 [place] # (Auto) 0.2 Eos # (Auto) 0.0 Baso # (Auto) 0.0 Abs Immat Gran (auto) 0.02 Absolute Neuts (auto) 2.9 Absolute Nucleated RBC 0.000 Band Neutrophils % 0 Nucleated RBC % 0.0 Platelet Estimate Adequate % Immature Plt Fraction 8.1 Anisocytosis 2+ Microcytosis 1+ Schistocytes None seen Sodium 132 L Potassium 3.9 Chloride 106 Carbon Dioxide 20 L Anion Gap 6 BUN 7 Creatinine 0.74 Estim Creat Clear Calc Not Reportable Estimated GFR > 60 Glucose 98 Uric Acid 6.9 Calcium 9.3 Total Bilirubin 0.6 AST 27 ALT 13 Alkaline Phosphatase 99 Total Protein 7.5 Albumin 3.7 Urine Color Yellow Urine Appearance Clear Urine pH 6.0 Ur Specific [place] 1.007 Urine Protein Negative Urine Glucose (UA) Negative Urine Ketones Negative Ur Blood (Man) Negative Urine Nitrate Negative Urine Bilirubin Negative Urine Urobilinogen 1.0 Leukocyte Esterase Rfl 1+ H Urine RBC 0-2 Urine WBC 11-20 H Ur Squamous Epith Cells Few Urine Bacteria Rare Urine Casts 0-2 U Random Total Protein 15 Urine Creatinine 50.4 Protein/Creat Ratio 2 0.30 H Influenza A (RT-PCR) Influenza B (RT-PCR) RSV (RT-PCR) SARS-CoV-2 RNA (RT-PCR) Blood Type A Positive Antibody Screen Negative 04/07/25 16:28 WBC RBC Hgb Hct MCV MCH MCHC RDW Plt Count MPV Immature Gran % (Auto) Neut % (Auto) Lymph % (Auto) [place] % (Auto) Eos % (Auto) Baso % (Auto) Lymph # (Auto) [place] # (Auto) Eos # (Auto) Baso # (Auto) Abs Immat Gran (auto) Absolute Neuts (auto) Absolute Nucleated RBC Band Neutrophils % Nucleated RBC % Platelet Estimate % Immature Plt Fraction Anisocytosis Microcytosis Schistocytes Sodium Potassium Chloride Carbon Dioxide Anion Gap BUN Creatinine Estim Creat Clear Calc Estimated GFR Glucose Uric Acid Calcium Total Bilirubin AST ALT Alkaline Phosphatase Total Protein Albumin Urine Color Urine Appearance Urine pH Ur Specific [place] Urine Protein Urine Glucose (UA) Urine Ketones Ur Blood (Man) Urine Nitrate Urine Bilirubin Urine Urobilinogen Leukocyte Esterase Rfl Urine RBC Urine WBC Ur Squamous Epith Cells Urine Bacteria Urine Casts U Random Total Protein Urine Creatinine Protein/Creat Ratio 2 Influenza A (RT-PCR) Negative Influenza B (RT-PCR) Negative RSV (RT-PCR) Negative SARS-CoV-2 RNA (RT-PCR) Negative Blood Type Antibody Screen Vital signs: Vital Signs - 24 hr 04/07/25 14:53 04/07/25 14:58 04/07/25 15:00 Pulse Rate 91 Blood Pressure 114/66 Pulse Oximetry 98 96 Oxygen Delivery 04/07/25 15:03 04/07/25 15:08 04/07/25 15:20 Pulse Rate 81 Blood Pressure 111/66 Pulse Oximetry 96 96 98 Oxygen Delivery 04/07/25 15:25 04/07/25 15:30 04/07/25 15:32 Pulse Rate 89 Blood Pressure 104/63 Pulse Oximetry 100 97 Oxygen Delivery Room Air 04/07/25 15:35 04/07/25 15:40 04/07/25 15:45 Pulse Rate 82 Blood Pressure 102/63 Pulse Oximetry 100 96 96 Oxygen Delivery 04/07/25 15:50 04/07/25 15:55 04/07/25 16:00 Pulse Rate 88 Blood Pressure 110/67 Pulse Oximetry 98 98 96 Oxygen Delivery 04/07/25 16:05 04/07/25 16:10 04/07/25 16:15 Pulse Rate 83 Blood Pressure 112/69 Pulse Oximetry 97 97 96 Oxygen Delivery 04/07/25 16:20 04/07/25 16:25 04/07/25 16:30 Pulse Rate 89 Blood Pressure 110/73 Pulse Oximetry 97 97 97 Oxygen Delivery 04/07/25 16:35 04/07/25 16:40 04/07/25 16:45 Pulse Rate 90 Blood Pressure 92/55 L Pulse Oximetry 96 98 95 Oxygen Delivery 04/07/25 16:50 Pulse Rate Blood Pressure Pulse Oximetry 100 Oxygen Delivery
== END 2025-04-07 18:13 | disposition home or self-care (01) ==
PROVIDERS: Admitting Provider Student in an Organized Health Care Education/Training Program; Visit Provider Student in an Organized Health Care Education/Training Program
DX: O26.893 Other specified pregnancy related conditions, third trimester (principal); Z3A.35 35 weeks gestation of pregnancy; R51.9 Headache, unspecified; R82.90 Unspecified abnormal findings in urine; Z20.822 Contact with and (suspected) exposure to COVID-19
CPT/HCPCS: 0202U; 36415; 80053; 81001; 82570; 84156; 84550; 85025; 85055; 86850; 86900; 86901; 87086; 87637; A9270; G0378; G0379

== ENCOUNTER 2025-04-08 18:18 | Outpatient (NON) | payer OTHER, SELFPAY ==
--- OUTSIDE RECORDS SUMMARY | 2025-04-08 18:29 | XMS_ITS | Clinical Summary ---
Author Organization [facility] Address [place] [address] Care Team Providers Care Travel Rn Name Role Phone Marcy Garcia PA-C Primary Care Provider +1- [phone] Allergies Active Allergy Reactions Criticality Noted Date Comments Ascorbate Rash Medium 07/08/2019 Capsicum Hives Medium 03/22/2023 Elderberry-Vitamin C-Zinc Rash Low 07/08/2019 Jalapeno peppers Misc Natural Products Hives Medium 11/03/2023 Strawberries Hives,Itching Medium 05/18/2015 [place] Extract Rash Low 07/08/2019 Medications topiramate (TOPAMAX) [...] 2012 01/20/2012 Hepatitis C 07/18/2013 PHQ-2 (Physician [place]) 05/15/2024 COVID-19 Vaccine ( season) 2025 01/24/2022, [...] this topic Insurance [employer] Care Teams Travel Rn Relationship Specialty Start Date End Date Marcy Garcia PA-C [address] [place] [phone] PCP - General PHYSICIAN PSYCHIATRY ADULT PHYSICIAN 11/07/24
--- OUTSIDE RECORDS SUMMARY | 2025-04-08 18:29 | XMS_ITS | Clinical Summary ---
Author Organization [facility] Address [address] [place] [address] Care Team Providers Care Seismic Observer Name Role Phone Unavailable Primary Care Provider Unavailabl e Source Comments [facility] [employer],non-owned Affiliates and Associated Physician Practices is amultiple site organization consisting of ambulatory clinics and hospital sitesin [place], [place], [place] and [place]. This disclosure is being madepursuant to the Care Everywhere program and may not contain all information available regarding this patient. Last updated 18.[facility] [employer] Allergies No known active allergies Medications * [...] Department Care Team Description 03/26/2025 9:45 AM DIAMOND BLENDER - 03/26/2025 11:59 PM DIAMOND BLENDER Hospital Encounter Replaced by [facility] [address] [place] [id number] Rene Velez MD Mead, Judith A, MD Discharge Disposition: Home or Self Care 02/27/2025 Refill Replaced by [facility] [address] [place] [id number] Nirmala Melton, REPAIR SERVICER-PALEONTOLOGICAL HELPER MEDICATION REFILL 02/19/2025 11:10 AM CDT - 02/19/2025 11:59 PM CDT Hospital Encounter Replaced by [facility] [address] [place] [id number] Lucero Alberto MD Discharge Disposition: Home or Self Care 02/19/2025 11:09 AM CDT Hospital Encounter Replaced by [facility] [address] [place] [phone] Lucero Alberto MD Discharge Disposition: Home or Self Care 01/22/2025 1:45 PM CDT - 01/22/2025 11:59 PM CDT Hospital Encounter Replaced by [facility] [address] [place] [phone] Lucero Alberto MD Discharge Disposition: Home or [...] Comments Blood Pressure 105/68 03/26/2025 10:05 AM DIAMOND BLENDER Pulse 96 03/26/2025 10:05 AM DIAMOND BLENDER Temperature - - Respiratory Rate - - Oxygen Saturation - - Inhaled Oxygen Concentration - - Weight 86.2 kg (190 lb) 03/26/2025 10:05 AM DIAMOND BLENDER Height 170.2 cm (5' 7) 02/19/2025 11:38 AM CDT Body Mass Index 29.76 02/19/2025 11:38 AM CDT Plan of Treatment Upcoming Encounters Date Type Department Care Team (Late st Contact Info) Description 04/23/2025 8:15 AM DIAMOND BLENDER Appointment [facility] [address] [place], [place] [phone] Health Maintenance Due Date Last Done Comments [...] PROFILE W NST Routine 03/26/2025 10:56 AM DIAMOND BLENDER Hemoglobinopathy: Sickle S-HPFH disease. History of pulmonary [...] Biophysical Profile w NST (03/26/2025 10:56 AM DIAMOND BLENDER) Linked Results Indication ======== Encounter for ultrasound to assess growth Sickle cell anemia w/o crisis complicating History ====== OB History 4. Para 3 [id number] 1. live 2015. Gest. age 39 w [...] 4 lb 15 oz EFW by Hadlock ([id number]) appropriate Growth Overview Exam date [place] BPD [...] is normal. The biophysical profile is 10/10. LONGSHORE EQUIPMENT OPERATOR consult today. Follow-up ======== Continue twice weekly testing. Growth US in 4 weeks. Coding ====== Diagnoses Z36.3: Encounter for screening for malformations O99.013: Anemia complicating D58.2: Other hemoglobinopathies Procedures 46301: [place] [address]: Biophysical Profile W NST [place] PACS Anatomical Region Laterality Modality Other 03/26/2025 10:5 6 AM DIAMOND BLENDER us Madhavi Rivera MD [facility] ORDERABLES Edited Result - Final * Sonogram - Complete (02/19/2025 11:18 AM CDT) Only the most recent of2 resultswithin the time period is included. Linked Results Indication ======== Encounter for ultrasound to assess growth Sickle cell anemia w/o crisis complicating History ====== OB History 4. Para 3 [id number] 1. live 2015. Gest. age 39 w [...] 2 lb 12 oz EFW by Hadlock ([id number]) appropriate Growth Overview Exam date [place] BPD [...] were seen within the limits of ultrasound. LONGSHORE EQUIPMENT OPERATOR consult today Follow-up ======== Growth US in 4 weeks. Coding ====== Diagnoses Z36.3: Encounter for screening for malformations O99.013: Anemia complicating D58.2: Other hemoglobinopathies Procedures 80908: US Preg Uterus Follow Up [employer] PACS Anatomical Region Laterality Modality Other 02/19/2025 11:1 8 AM CDT Madhavi Rivera MD [facility] ORDERABLES Edited Result - Final from Last 3 [place] [id number] [facility]
--- OUTSIDE RECORDS SUMMARY | 2025-04-08 18:29 | XMS_ITS | Clinical Summary ---
Author Organization [facility] Address [address] [place] [address] Care Team Providers Care Litigation Claim Representative Name Role Phone Unavailable Primary Care Provider Unavailabl e Allergies Active Allergy Reactions Criticality Noted Date Comments Ascorbic Acid Rash Medium 07/08/2019 Castellano Pepper Extract Urticaria Medium 03/22/2023 [place] Hives,Itching Medium 05/18/2015 Medications Medrol, Lee, 4 [...] on file Legal Sex Female 9:09 PM DISEASE EDUCATION SPECIALIST Gender Identity Female 09/20/2023 9:49 AM CDT [...] , 07/21/2017, 02/18/2017, Additional history exists Insurance [facility] Address: [address] [place] [address] [facility] Address: [address] [place] [address]
[2025-04-08 18:31] VITALS: BMI 28.6
[2025-04-08 18:42] LABS: Total Volume 24 Hour Urine 2400 ml
[2025-04-08 18:49] LABS: Total Volume 24 Hour Urine 2400 ml
[2025-04-08 18:55] LABS: Total Protein Urine 24 Hr 360 mg/24hr (28-141); Total Protein Urine Random 15 mg/dL
[2025-04-08 18:57] LABS: Creatinine 24 Hour Urine 1.3 gm/24 (0.8-1.8)
== END 2025-04-08 18:19 | disposition home or self-care (01) ==
LOC: ANHOBOP 18:27
PROVIDERS: Visit Provider Student in an Organized Health Care Education/Training Program
DX: R79.82 Elevated C-reactive protein (CRP) (principal)
CPT/HCPCS: 81050; 82570; 84156

== ENCOUNTER 2025-04-09 08:27 | Outpatient (CLI) | payer OTHER, SELFPAY ==
--- OUTSIDE RECORDS SUMMARY | 2025-04-09 08:50 | XMS_ITS | Clinical Summary ---
Author Organization [facility] Address [facility] [place] [address] Care Team Providers Care Laundry Tub Maker Name Role Phone Marcy Garcia PA-C Primary Care Provider +1- [phone] Allergies Active Allergy Reactions Criticality Noted Date Comments Ascorbate Rash Medium 07/08/2019 Capsicum Hives Medium 03/22/2023 Elderberry-Vitamin C-Zinc Rash Low 07/08/2019 Jalapeno peppers Misc Natural Products Hives Medium 11/03/2023 Strawberries Hives,Itching Medium 05/18/2015 [place] Extract Rash Low 07/08/2019 Medications topiramate (TOPAMAX) [...] 2012 01/20/2012 Hepatitis C 07/18/2013 PHQ-2 (Physician [place]) 05/15/2024 COVID-19 Vaccine ( season) 2025 01/24/2022, [...] this topic Insurance [place] [employer] Care Teams Laundry Tub Maker Relationship Specialty Start Date End Date Marcy Garcia PA-C [address] [place] [phone] PCP - General PHYSICIAN OPERATIONS ASSISTANT 11/07/24
--- OUTSIDE RECORDS SUMMARY | 2025-04-09 08:50 | XMS_ITS | Clinical Summary ---
Author Organization [facility] Address [address] [place] [address] Care Team Providers Care Veneer Clipper Name Role Phone Unavailable Primary Care Provider Unavailabl e Source Comments [facility] [employer],non-owned Affiliates and Associated Physician Practices is amultiple site organization consisting of ambulatory clinics and hospital sitesin [place], [place] and [place]. This disclosure is being madepursuant to the Care Everywhere program and may not contain all information available regarding this patient. Last updated 18.[facility] [employer] Allergies No known active allergies Medications * [...] Department Care Team Description 03/26/2025 9:45 AM RAIL DETECTOR CAR OPERATOR - 03/26/2025 11:59 PM RAIL DETECTOR CAR OPERATOR Hospital Encounter [facility] [address] [place] [address] Rene Velez MD Mead, Judith A, MD Discharge Disposition: Home or Self Care 02/27/2025 Refill [facility] [address] [place] [id number] Nirmala Melton, DATE NIGHT CAREGIVER-[employer] MEDICATION REFILL 02/19/2025 11:10 AM CDT - 02/19/2025 11:59 PM CDT Hospital Encounter [facility] [address] [place] [phone] Lucero Alberto MD Discharge Disposition: Home or Self Care 02/19/2025 11:09 AM CDT Hospital Encounter [facility] [address] [place] [place] [address] Lucero Alberto MD Discharge Disposition: Home or Self Care 01/22/2025 1:45 PM CDT - 01/22/2025 11:59 PM CDT Hospital Encounter [facility] [address] [place] [place] [phone] Lucero Alberto MD Discharge Disposition: Home or [...] Comments Blood Pressure 105/68 03/26/2025 10:05 AM RAIL DETECTOR CAR OPERATOR Pulse 96 03/26/2025 10:05 AM RAIL DETECTOR CAR OPERATOR Temperature - - Respiratory Rate - - Oxygen Saturation - - Inhaled Oxygen Concentration - - Weight 86.2 kg (190 lb) 03/26/2025 10:05 AM RAIL DETECTOR CAR OPERATOR Height 170.2 cm (5' 7) 02/19/2025 11:38 AM CDT Body Mass Index 29.76 02/19/2025 11:38 AM CDT Plan of Treatment Upcoming Encounters Date Type Department Care Team (Late st Contact Info) Description 04/23/2025 8:15 AM RAIL DETECTOR CAR OPERATOR Appointment [facility] [address] [place], [place] [id number] Health Maintenance Due Date Last Done Comments [...] PROFILE W NST Routine 03/26/2025 10:56 AM RAIL DETECTOR CAR OPERATOR Hemoglobinopathy: Sickle S-HPFH disease. History of pulmonary [...] Biophysical Profile w NST (03/26/2025 10:56 AM RAIL DETECTOR CAR OPERATOR) Linked Results Indication ======== Encounter for ultrasound to assess growth Sickle cell anemia w/o crisis complicating History ====== OB History 4. Para 3 [id number] 1. live 2015. Gest. age 39 w [...] 4 lb 15 oz EFW by Hadlock ([id number]) appropriate Growth Overview Exam date [place] BPD [...] is normal. The biophysical profile is 10/10. EMERGENCY MANAGER consult today. Follow-up ======== Continue twice weekly testing. Growth US in 4 weeks. Coding ====== Diagnoses Z36.3: Encounter for screening for malformations O99.013: Anemia complicating D58.2: Other hemoglobinopathies Procedures 09797: [place] [address]: Biophysical Profile W NST ffk environment PACS Anatomical Region Laterality Modality Other 03/26/2025 10:5 6 AM RAIL DETECTOR CAR OPERATOR us Madhavi Rivera MD [facility] ORDERABLES Edited Result - Final * Sonogram - Complete (02/19/2025 11:18 AM CDT) Only the most recent of2 resultswithin the time period is included. Linked Results Indication ======== Encounter for ultrasound to assess growth Sickle cell anemia w/o crisis complicating History ====== OB History 4. Para 3 [id number] 1. live 2015. Gest. age 39 w [...] 2 lb 12 oz EFW by Hadlock ([id number]) appropriate Growth Overview Exam date [place] BPD [...] were seen within the limits of ultrasound. EMERGENCY MANAGER consult today Follow-up ======== Growth US in 4 weeks. Coding ====== Diagnoses Z36.3: Encounter for screening for malformations O99.013: Anemia complicating D58.2: Other hemoglobinopathies Procedures 93097: US Preg Uterus Follow Up [employer] PACS Anatomical Region Laterality Modality Other 02/19/2025 11:1 8 AM CDT Madhavi Rivera MD MF ORDERABLES Edited Result - Final from Last 3 [place] [phone] [facility]
--- OUTSIDE RECORDS SUMMARY | 2025-04-09 08:50 | XMS_ITS | Clinical Summary ---
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 Address: [address] [place] [address] [facility] [employer] [employer] Address: [address] [place] [address] [facility] [employer] Address: [facility] [address] [place] [address] [facility] Address: [address] [place] [address]
[2025-04-09 09:00] VITALS: BP 112/71; PULSE 81
[2025-04-09 09:03] LABS: Hematocrit 29.1 % (37.0-47.0); Hemoglobin 10.0 g/dL (12.0-15.0); Immature Granulocyte Percent A 0.4 % (0-0.5); Immature Platelet Fraction Pct 7.7 % (0.9-11.2); Lymphocytes Absolute Auto 1.11 K/mm3 (0.9-3.2); Mean Corpuscular HGB Conc 34.4 g/dl (32-36); Mean Corpuscular Hemoglobin 24.3 pg (26-34); Mean Corpuscular Volume 70.6 fl (80-100); Nucleated Red Blood Cells Absolute Auto 0.000 K/mm3 (0.0-0.012); Nucleated Red Blood Cells Perc 0.0 % (0.0-0.2); Platelet Count Result 147 k/mm3 (150-375); Red Blood Count 4.12 M/mm3 (4.2-5.4); White Blood Count 4.5 K/mm3 (4.5-10.0)
[2025-04-09 09:15] VITALS: BP 115/59; PULSE 81
[2025-04-09 09:15] LABS: Microcytosis 2+ (NORMAL); Ovalocytes 1+; Schistocytes None Seen; Tear Drop Cells 1+
[2025-04-09 09:22] LABS: Alanine Aminotransferase 13 U/L (6-35); Albumin Level 3.5 g/dL (3.5-5.1); Alkaline Phosphatase 99 U/L (38-126); Anion Gap 5 mmol/L (4-12); Aspartate Amino Transferase 28 U/L (14-36); Bilirubin,Total 0.6 mg/dL (0.2-1.3); Blood Urea Nitrogen 5 mg/dL (7-17); Calcium 9.1 mg/dL (8.4-10.2); Carbon Dioxide 19 mmol/L (22-30); Chloride 109 mmol/L (98-107); Estimated Glomerular Filt Rate > 60; Glucose 101 mg/dL (65-110); Potassium 3.7 mmol/L (3.4-5.0); Sodium 133 mmol/L (137-145); Total Protein 6.9 g/dL (6.3-8.2); Uric Acid 7.5 mg/dL (2.5-7.5)
[2025-04-09 09:30] VITALS: BP 113/71; PULSE 76
[2025-04-09 09:45] VITALS: BP 111/67; PULSE 73
[2025-04-09] MEDS: ACETAMINOPHEN 500 MG TABLET 1000 MG PO (10:04)
[2025-04-09] MEDS: CYCLOBENZAPRINE HCL 5 MG TABLET PO (10:05)
== END 2025-04-09 10:15 ==
LOC: ANHOBOP 08:46 → ANHOBPP 08:47
PROVIDERS: Visit Provider Student in an Organized Health Care Education/Training Program
DX: O13.9 Gestational [pregnancy-induced] hypertension without significant proteinuria, unspecified trimester (principal); Z3A.00 Weeks of gestation of pregnancy not specified
CPT/HCPCS: 36415; 59025; 80053; 84550; 85025; 85055; 99199; A9270

== ENCOUNTER 2025-04-25 08:07 | Outpatient (RCR) | payer OTHER, SELFPAY ==
[2025-03-21 10:49] VITALS: BP 118/63; PULSE 91
[2025-03-28 08:21] VITALS: BP 103/64; PULSE 86
[2025-04-04 08:48] VITALS: BP 111/62; PULSE 102
[2025-04-11 08:59] VITALS: BP 118/63; PULSE 81
[2025-04-18 09:13] VITALS: BP 113/63; PULSE 93
[2025-04-21 11:43] VITALS: BP 105/67; PULSE 69
--- NOTE | ~2025-04-25 | US_ITS ---
EXAM/PROCEDURE: US OB BPP wo non-stress HISTORY: history of DVT and sickle cell COMPARISON: None available. TECHNIQUE: Biophysical profile score performed. FINDINGS: A single viable intrauterine gestation is present with heart rate of 143 bpm Presentation: Vertex Placenta: Anterior to maternal right with no gross previa or abruption. EGA by dates 38 weeks 1 day EDC by dates: May 08, 2025. SHAUNA: 7.1 cm x 4 quadrant technique. BIOPHYSICAL PROFILE SCORES 8/8. IMPRESSION: Directed exam demonstrating single viable intrauterine gestation with biophysical profile score of 8/8. SHAUNA is 7.1 cm at the low end of normal range. Reviewed, dictated and finalized at location A. R THERMAL TECHNICIAN IMPRESSION: Directed exam demonstrating single viable intrauterine gestation with biophysic al profile score of 8/8. SHAUNA is 7.1 cm at the low end of normal range.
--- NOTE | ~2025-04-25 | US_ITS ---
EXAMINATION: US OB BPP wo non-stress DATE: 04/04/2025 09:17 INDICATION: Sickle cell anemia. Assess biophysical profile during third trimester . TECHNIQUE: Real-time pelvic ultrasound was performed. The interpreting radiologist was not present for the study. COMPARISON: None. FINDINGS: There is a single living fetus in vertex presentation. The placenta is on the maternal right and not low-lying. heart rate is 148 beats per minute (bpm). Oligohydramnios with amniotic fluid index of 7.2 cm (5th%-95%: 7.9-24.9 cm at 34 weeks estimated gestational age). Biophysical profile performed by the technologist: breathing (30 sec sustained breathing in 30 minutes): 2 out of 2 movement (3 gross body movements in 30 minutes): 2 out of 2 tone (one episode of svmuarb-lflzpigwu-sclkfsp limb movement): 2 out of 2 Amniotic fluid pocket (2 cm): 2 out of 2 Total score: 8 out of 8 IMPRESSION: 1. Single living fetus in vertex presentation with heart rate of 148 bpm. 2. Biophysical profile 8 out of 8. 3. Oligohydramnios with amniotic fluid index of 7.2 cm. Reviewed, dictated and finalized at location A. MAKER
--- NOTE | ~2025-04-25 | US_ITS ---
EXAM(S): US OB BPP without non-stress testing HISTORY: Hx of sickle cell. TECHNIQUE: Grayscale, color Doppler, and M-mode. COMPARISON: Outside images from October 02 FINDINGS: Number: Single. Heart rate: 138 bpm. presentation: cephalic. anatomy: Exam is performed too late in the gestation to optimally evaluate the anatomy. This was also not even requested. Amniotic fluid index: 8.8 cm. Placenta: Maternal right in position. There is a three-vessel cord. The BAR according to the first available ultrasound is May 11. The estimated gestational age is 33 weeks 5 days. BPP: Breathing Movements: 2 Movements: 2 Tone: 2 AFV: 2 The biophysical profile is 8/8. IMPRESSION: Single, live intrauterine with BPP 8/8. Reviewed, dictated and finalized at location A. SOFTWARE
--- NOTE | ~2025-04-25 | US_ITS ---
EXAMINATION: US OB BPP wo non-stress DATE: 04/18/2025 09:42 INDICATION: Third trimester consultation computed by maternal sickle cell disease with prior deep venous thrombosis. TECHNIQUE: Real-time pelvic ultrasound was performed. The interpreting radiologist was not present for the study. COMPARISON: None. FINDINGS: There is a single living fetus in vertex presentation. The placenta is on the maternal right. heart rate is 143 beats per minute (bpm). Borderline decreased amniotic fluid index of 7.5 cm (5th%-95%: 7.5-24.4 cm at 37 weeks estimated gestational age) Biophysical profile performed by the technologist: breathing (30 sec sustained breathing in 30 minutes): 2 out of 2 movement (3 gross body movements in 30 minutes): 2 out of 2 tone (one episode of lnvsxzq-xvjjgpfjr-zcfmpac limb movement): 2 out of 2 Amniotic fluid pocket (2 cm): 2 out of 2 Total score: 8 out of 8 IMPRESSION: 1. Single living fetus in vertex presentation with heart rate of 143 bpm. 2. Biophysical profile 8 out of 8. 3. Borderline decreased amniotic fluid index of 7.5 cm. Reviewed, dictated and finalized at location A. COMPOSER MACHINE TENDER
--- NOTE | ~2025-04-25 | US_ITS ---
EXAMINATION: US OB BPP wo non-stress, 04/11/2025 9:36 INSPECTOR [employer] HISTORY: sickle cell Comparison: None Technique: Gregorio-scale and color Doppler images were obtained. Findings: Single live intrauterine in longitudinal lie and vertex presentation, heart rate 126, SHAUNA 7.7 BPP 8/8 The placenta is located anteriorly and fundally, the cervix was not visualized. IMPRESSION: Single live intrauterine detailed above. Reviewed, dictated and finalized at location P. ECTOR [employer]
--- NOTE | ~2025-04-25 | US_ITS ---
EXAM/PROCEDURE: US OB BPP wo non-stress HISTORY: BPP, sickle cell disease COMPARISON: April 18, 2025 TECHNIQUE: Biophysical profile score performed by technologist. FINDINGS: A single viable intrauterine gestation is present with heart rate of 149 bpm Presentation: Vertex Placenta: Maternal right with no gross previa or abruption. EGA by dates 37 weeks 4 days SHAUNA: 7.99 cm compared to 7.5 cm on the previous exam. BIOPHYSICAL PROFILE SCORE: 8/8. IMPRESSION: Directed examination demonstrating single viable intrauterine gestation with biophysical profile score 8/8. Amniotic fluid volume is 7.99 mm, at the lower end of normal range. Reviewed, dictated and finalized at location A. E CLEANER IMPRESSION: Directed examination demonstrating single viable intrauterine gestation with bi ophysical profile score 8/8. Amniotic fluid volume is 7.99 mm, at the lower end of normal range.
[2025-04-25 08:47] VITALS: BP 113/66; PULSE 100
--- NOTE | 2025-04-25 11:02 | PC.NURSE ---
1035-Pt placed back on monitor. Currently waiting for her ride. Pt complaining of pain in back, lower abdomen, and thighs. 1102- Pt states that pain is gone now. Occasional contractions noted on tracing. Reactive tracing. Monitors removed. Pt continues to wait for a ride.
== END 2025-05-03 11:33 | disposition other institution (70) ==
LOC: ANHOBOP 08:07
PROVIDERS: Visit Provider Student in an Organized Health Care Education/Training Program
DX: O99.013 Anemia complicating pregnancy, third trimester (principal); Z3A.33 33 weeks gestation of pregnancy; Z86.718 Personal history of other venous thrombosis and embolism
CPT/HCPCS: 59025; 76819

== ENCOUNTER 2025-04-30 13:52 | Outpatient (CLI) | payer OTHER, SELFPAY ==
[2025-04-30 14:47] LABS: Hematocrit 30.5 % (37.0-47.0); Hemoglobin 10.4 g/dL (12.0-15.0); Immature Platelet Fraction Pct 10.6 % (0.9-11.2); Mean Corpuscular HGB Conc 34.1 g/dl (32-36); Mean Corpuscular Hemoglobin 23.9 pg (26-34); Mean Corpuscular Volume 70.0 fl (80-100); Platelet Count Result 167 k/mm3 (150-375); Red Blood Count 4.36 M/mm3 (4.2-5.4); White Blood Count 5.5 K/mm3 (4.5-10.0)
[2025-04-30 16:16] LABS: Syphilis IgG/IgM Antibody Non-Reactive (Nonreactive)
--- OUTSIDE RECORDS SUMMARY | 2025-04-30 16:25 | XMS_ITS | Clinical Summary ---
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 [employer] Address: [address] [place] [address] [facility] Address: [facility] [id number] [place] [address] [facility]
--- OUTSIDE RECORDS SUMMARY | 2025-04-30 16:25 | XMS_ITS | Clinical Summary ---
Author Organization [facility] Address [facility] [place] [address] Care Team Providers Care Property Developer Name Role Phone Marcy Garcia PA-C Primary Care Provider [phone]- [phone] Allergies Active Allergy Reactions Criticality Noted Date Comments Ascorbate Rash Medium 07/08/2019 Capsicum Hives Medium 03/22/2023 Elderberry-Vitamin C-Zinc Rash Low 07/08/2019 Jalapeno peppers Misc Natural Products Hives Medium 11/03/2023 Strawberries Hives,Itching Medium 05/18/2015 [place] Extract Rash Low 07/08/2019 Medications topiramate (TOPAMAX) [...] 2012 01/20/2012 Hepatitis C 07/18/2013 PHQ-2 (Physician [place]) 05/15/2024 COVID-19 Vaccine ( season) 2025 01/24/2022, [...] this topic Insurance [employer] Care Teams Property Developer Relationship Specialty Start Date End Date Marcy Garcia PA-C [address] [place] [phone] PCP - General PHYSICIAN URINALYSIS TECHNICIAN 11/07/24
--- OUTSIDE RECORDS SUMMARY | 2025-04-30 16:25 | XMS_ITS | Clinical Summary ---
Author Organization [facility] Address [address] [place] [place] [address] Care Team Providers Care Shop Lead Name Role Phone Unavailable Primary Care Provider Unavailabl e Source Comments [facility] [employer],non-owned Affiliates and Associated Physician Practices is amultiple site organization consisting of ambulatory clinics and hospital sitesin [place], [place], [place] and [place]. This disclosure is being madepursuant to the Care Everywhere program and may not contain all information available regarding this patient. Last updated 18.[facility] [employer] Allergies No known active allergies Medications * [...] as directed 1 Each 03/26/20 25 Active heparin 06325 UNIT/ML injectionIndica tions:Deep Vein Thrombosis Prophylaxis Inject 0.1 mL subcutaneously 2 times daily Reasons: Treatment to Prevent Deep Vein Thrombosis Active Active Problems Problem Noted Date Diagnosed Date History of pulmonary embolism 12/25/2024 Hemoglobinopathy: Sickle S-HPFH disease. 025 Overview (12/25/2024): Hematology [facility] 03/22/23 Herpes simplex type 2 (HSV-2 ) [...] Encounters Date Type Department Care Team Description 04/23/2025 8:15 AM WATERSHED ENGINEER - 04/23/2025 11:59 PM WATERSHED ENGINEER Hospital Encounter [facility] [address] [place] [phone] Lucero Alberto MD Discharge Disposition: Home or Self Care 03/26/2025 9:45 AM WATERSHED ENGINEER - 03/26/2025 11:59 PM WATERSHED ENGINEER Hospital Encounter [facility] [address] [place] [phone] Rene Velez MD Mead, Judith A, MD Discharge Disposition: Home or Self Care 02/27/2025 Refill [facility] [address] [place] [phone] Nirmala Melton APRN-ANGELA MEDICATION REFILL 02/19/2025 11:10 AM CDT - 02/19/2025 11:59 PM CDT Hospital Encounter [facility] [address] [place] [address] Lucero Alberto MD Discharge Disposition: Home or Self Care 02/19/2025 11:09 AM CDT Hospital Encounter [facility] [address] [phone] Lucero Alberto MD Discharge Disposition: Home or [...] Sign Reading Time Taken Comments Blood Pressure 111/73 04/23/2025 8:58 AM WATERSHED ENGINEER Pulse 90 04/23/2025 8:58 AM WATERSHED ENGINEER Temperature - - Respiratory Rate - - Oxygen Saturation - - Inhaled Oxygen Concentration - - Weight 85.3 kg (188 lb) 04/23/2025 8:58 AM WATERSHED ENGINEER Height 170.2 cm (5' 7) 02/19/2025 11:38 AM CDT Body Mass Index 29.44 02/19/2025 11:38 AM CDT Plan of Treatment Health Maintenance Due [...] exists OB-ONE HOUR GLUCOSE 01/30/2025 OB-TDAP CURRENT 02/06/20252016, 04/28/2015, 12/29/2009 OB-RHOGAM INJECTION 02/13/2025 OB-GROUP B STREP SCREEN 04/03/2025 ZOSTER VACCINE (1 of 2) 07/18/2045 Respiratory Syncytial Virus (RSV) Vaccine Pt: or over 60 yrs (No Doses Required) Completed Procedures Procedure Name Priority Date/Time Associated Diagnosis Comments BIOPHYSICAL PROFILE W NST Routine 04/23/2025 8:24 AM WATERSHED ENGINEER Hemoglobinopathy: Sickle S-HPFH disease. History of pulmonary embolism Fourth (HCC) Encounter for ultrasound to assess growth (HCC) High risk multigravida in second trimester (HCC) Encounter for other screening follow-up (HCC) BIOPHYSICAL PROFILE W NST Routine 03/26/2025 10:56 AM WATERSHED ENGINEER Hemoglobinopathy: Sickle S-HPFH disease. History of pulmonary [...] Months Results * Biophysical Profile w NST (04/23/2025 8:24 AM WATERSHED ENGINEER) Only the most recent of2 resultswithin the time period is included. Linked Results Indication ======== Encounter for ultrasound to assess growth Sickle cell anemia w/o crisis complicating Hgb S/ HPFH. History ====== OB History 4. Para 3 [id number] 1. live 2015. Gest. age 39 w [...] 170 cm, 5 ft 7 in. Weight 85 kg, 188 lb. Initial weight 73 kg, 160 lb. BMI 29.45 kg/m . Initial BMI 25.06 kg/m . Weight gain 13 kg, 28 lb Method ====== Transabdominal ultrasound examination. View: Good view ========= James . Number of fetuses: 1 Dating ====== Date Details Gest. age BAR LMP 08/01/2024 37 w + 6 d 05/08/2025 Assigned dating based on the LMP, selected on 12/25/2024 37 w + 6 d 05/08/2025 General Evaluation Cardiac activity present. FHR 142 bpm. Presentation: cephalic Placenta: Placental site: anterior Amniotic Fluid Assessment Amount of AF: normal MVP 4.5 cm. SHAUNA 13.5 cm. Q1 2.8 cm, Q2 2.0 cm, Q3 4.2 cm, Q4 4.5 cm Biophysical Profile 2: breathing movements 2: Gross body movements 2: tone 2: Amniotic fluid volume NST: reactive 10/10 Biophysical profile score Non Stress Test NST interpretation: reactive. Baseline FHR 140 bpm. Baseline variability: moderate. Accelerations: present Biometry BPD 87.9 mm 35w 4d 13% Hadlock HC 323.5 mm 36w 4d 8% Hadlock AC 342.8 mm 38w 1d 76% Hadlock Femur 72.5 mm 37w 1d 33% Hadlock Humerus 66.3 mm 38w 3d 92% Jackelin HC / AC 0.94 Weight Calculation: EFW 3,207 g 50% Hadlock EFW (lb,oz) 7 lb 1 oz EFW by Hadlock ([id number]) appropriate Growth Overview Exam date GA BPD [...] 48% 66.8 54% 60.5 87% 2233 36% 04/23/2025 37w 6d 87.9 13% 323.5 8% 342.8 76% 72.5 33% 66.3 92% 3207 50% Anatomy The following structures appear normal: Heart / Thorax 4-chamber view. Abdomen Stomach. Kidneys. Bladder. sex: male. Impression ========= Single, live, intrauterine at 37w 6d The growth is appropriate. The amniotic fluid volume is normal. The biophysical profile is 10. Comment ======== ultrasound alone cannot detect all structural, genetic, or functional , placental, or maternal abnormalities Follow-up ======== Continue weekly testing. Coding ====== Diagnoses Z36.3: Encounter for screening for malformations O99.013: Anemia complicating D58.2: Other hemoglobinopathies Procedures 28975: [place] [address]: Biophysical Profile W NST [facility] Issue PACS Anatomical Region Laterality Modality Other 04/23/2025 8:24 AM WATERSHED ENGINEER us Madhavi Rivera MD [facility] ORDERABLES Edited Result - Final * Sonogram - Complete (02/19/2025 11:18 AM CDT) Linked Results Indication ======== Encounter for ultrasound to assess growth Sickle cell anemia w/o crisis complicating History ====== OB History 4. Para 3 [id number] 1. live 2015. Gest. age 39 w [...] 2 lb 12 oz EFW by Hadlock ([id number]) appropriate Growth Overview Exam date [place] BPD [...] were seen within the limits of ultrasound. EDITOR MAP consult today Follow-up ======== Growth US in 4 weeks. Coding ====== Diagnoses Z36.3: Encounter for screening for malformations O99.013: Anemia complicating D58.2: Other hemoglobinopathies Procedures 06852: US Preg Uterus Follow Up N [facility] PACS Anatomical Region Laterality Modality Other 02/19/2025 11:1 8 AM CDT Madhavi Rivera MD [facility] ORDERABLES Edited Result - Final from Last 3 [place] [phone] [facility]
== END 2025-04-30 13:53 | disposition home or self-care (01) ==
LOC: ANHLAB 13:54
PROVIDERS: Visit Provider Obstetrics & Gynecology
DX: Z01.818 Encounter for other preprocedural examination (principal)
CPT/HCPCS: 36415; 85027; 85055; 86593; 86850; 86900; 86901

== ENCOUNTER 2025-05-01 09:22 | Inpatient (IN) | payer OTHER, SELFPAY ==
--- NOTE | 2025-04-30 09:06 | PM.IMHP2 ---
H&P: HPI History of Present Illness Date/Time: 04/30/25 09:06 29 year 4 para 3003 female presents at 39 weeks gestation for repeat delivery. Has had 2 prior vaginal deliveries followed by delivery in her most recent . Also has a history of DVT due to sickle cell crisis for which she has been on Lovenox throughout the , has been changed to heparin though there has been some issues with getting this medication over the past week. Otherwise she has done well, comanaged with MFM, and has been offered salpingectomy, declines. Chief Complaint: Review of Systems Review of Systems: All systems reviewed & are unremarkable except as noted in HPI and below PMFSH Past Medical History Medical History Sickle cell disease Surgical History Surgical History History of delivery Family History Family History Father Diabetes mellitus Grandparent Hypertension Social History Social History Smoking status: Never smoker Alcohol intake: former Alcohol use details: rare Substance use: never Substance use type: does not use Lack of Transportation: No Lack of Food: Never True Current Housing: Decline to Answer Concerned About Future Housing: Decline to Answer Difficulty Paying Gas/Electric Bills: Decline to Answer Difficulty Paying for Meds: Decline to Answer Currently Unemployed: Decline to Answer Education: Decline to Answer Difficulty w/ Childcare or Family Care: Decline to Answer Living arrangements: with family Occupation/Education: occupation Gender identity (if verbalized by the patient): Female Sexual Orientation (if Verbalized by the Patient): Straight or Heterosexual Spiritual care concerns: No Meds Home Medications and Allergies Home Medications ?Medication ?Instructions ?Recorded ?Confirmed ?Type acetaminophen 500 mg capsule 500 mg PO Q6H PRN pain #20 caps 09/21/24 04/28/25 Rx metoclopramide HCl 10 mg tablet 10 mg PO Q6H PRN nausea and 09/21/24 04/28/25 Rx vomiting #14 tabs docosahexaenoic acid 200 mg mg PO 12/09/24 04/28/25 History capsule ( DHA) cane #1 ea 02/05/25 04/28/25 Rx ferrous sulfate 325 mg (65 mg 325 mg PO DAILY #90 tabs 03/17/25 04/28/25 Rx iron) tablet valacyclovir 1 gram tablet 1,000 mg PO Q12H #14 tabs 04/14/25 04/28/25 Rx (Valtrex) valacyclovir 500 mg tablet 500 mg PO DAILY #90 tabs 04/14/25 04/28/25 Rx safety needles 25 gauge x 1 1/2 #100 ea 04/23/25 04/28/25 Rx Held on 04/28/25. Instructions: Order Change heparin (porcine) 5,000 unit/mL 10,000 unit (2 mL) subcut Q12H #24 04/28/25 04/28/25 Rx injection syringe mL Allergies Allergy/AdvReac Type Severity Reaction Status Date / Time strawberry Allergy Hives Verified 04/28/25 08:18 Exam Const: General: cooperative and healthy appearing Resp: Effort & Inspection: normal respiratory effort Auscultation: clear to auscultation bilaterally Cardio: Rate: regular rate Rhythm: regular rhythm GI: Inspection: normal to inspection Auscultation: normal bowel sounds : Bimanual exam- vagina & uterus: enlarged ( fundal height 39cm heart tone 130-140) Assessment and Plan Assessment and plan (1) 39 weeks gestation of : Code(s): Z3A.39 - 39 weeks gestation of Status: Acute (2) Previous delivery affecting : Code(s): O34.219 - Maternal care for unspecified type scar from previous delivery Status: Acute Assessment and Plan: proceed with repeat/ declines salpingectomy (3) H/O deep venous thrombosis: Code(s): Z86.718 - Personal history of other venous thrombosis and embolism Status: Acute Assessment and Plan: will re-initiate Lovenox 12hours post delivery
[2025-05-01] VITALS (46 sets, daily range): BP systolic 104–119; BP diastolic 7–79; PULSE 55–121; RESP 9–20; TEMP 36.5–37.1; O2SAT 78–100; BMI 29.4
[2025-05-01] MEDS: LACTATED RINGERS 1,000 ML 125 ML IV CONT ×2 (10:20→11:15)
--- OUTSIDE RECORDS SUMMARY | 2025-05-01 10:24 | XMS_ITS | Clinical Summary ---
Author Organization [facility] Address [address] [place] [address] Care Team Providers Care Teacher Tutor Name Role Phone Unavailable Primary Care Provider Unavailabl e Source Comments [facility] [employer],non-owned Affiliates and Associated Physician Practices is amultiple site organization consisting of ambulatory clinics and hospital sitesin [place], [place], [place] and [place]. This disclosure is being madepursuant to the Care Everywhere program and may not contain all information available regarding this patient. Last updated 18.[facility] [employer] Allergies No known active allergies Medications * [...] directed 1 Each 03/26/20 25 Active heparin 66447 UNIT/ML injectionIndica tions:Deep Vein Thrombosis Prophylaxis Inject 0.1 mL subcutaneously 2 times daily Reasons: Treatment to Prevent Deep Vein Thrombosis Active Active Problems Problem Noted Date Diagnosed Date History of pulmonary embolism 12/25/2024 Hemoglobinopathy: Sickle S-HPFH disease. 025 Overview (12/25/2024): Hematology [facility] 03/22/23 Herpes simplex type 2 [...] Department Care Team Description 04/23/2025 8:15 AM SUPERVISOR AGRICULTURAL EDUCATION - 04/23/2025 11:59 PM SUPERVISOR AGRICULTURAL EDUCATION Hospital Encounter [facility] [address] [place] [id number] Lucero Alberto MD Discharge Disposition: Home or Self Care 03/26/2025 9:45 AM SUPERVISOR AGRICULTURAL EDUCATION - 03/26/2025 11:59 PM SUPERVISOR AGRICULTURAL EDUCATION Hospital Encounter [facility] [address] [place] [id number] Rene Velez MD Mead, Judith A, MD Discharge Disposition: Home or Self Care 02/27/2025 Refill [facility] [address] [place] [phone] Nirmala Melton APRN-ANGELA MEDICATION REFILL 02/19/2025 11:10 AM CDT - 02/19/2025 11:59 PM CDT Hospital Encounter [facility] [address] [place] [phone] Lucero Alberto MD Discharge Disposition: Home or Self Care 02/19/2025 11:09 AM CDT Hospital Encounter [facility] [address] [phone] Lucero Alberto MD Discharge Disposition: Home or [...] Comments Blood Pressure 111/73 04/23/2025 8:58 AM SUPERVISOR AGRICULTURAL EDUCATION Pulse 90 04/23/2025 8:58 AM SUPERVISOR AGRICULTURAL EDUCATION Temperature - - Respiratory Rate - - Oxygen Saturation - - Inhaled Oxygen Concentration - - Weight 85.3 kg (188 lb) 04/23/2025 8:58 AM SUPERVISOR AGRICULTURAL EDUCATION Height 170.2 cm (5' 7) 02/19/2025 11:38 [...] PROFILE W NST Routine 04/23/2025 8:24 AM SUPERVISOR AGRICULTURAL EDUCATION Hemoglobinopathy: Sickle S-HPFH disease. History of pulmonary embolism Fourth (HCC) Encounter for ultrasound to assess growth (HCC) High risk multigravida in second trimester (HCC) Encounter for other screening follow-up (HCC) BIOPHYSICAL PROFILE W NST Routine 03/26/2025 10:56 AM SUPERVISOR AGRICULTURAL EDUCATION Hemoglobinopathy: Sickle S-HPFH disease. History of pulmonary [...] Biophysical Profile w NST (04/23/2025 8:24 AM SUPERVISOR AGRICULTURAL EDUCATION) Only the most recent of2 resultswithin the time period is included. Linked Results Indication ======== Encounter for ultrasound to assess growth Sickle cell anemia w/o crisis complicating Hgb S/ HPFH. History ====== OB History 4. Para 3 [id number] 1. live 2015. Gest. age 39 w [...] 7 lb 1 oz EFW by Hadlock ([id number]) appropriate Growth Overview Exam date [place] BPD [...] O99.013: Anemia complicating D58.2: Other hemoglobinopathies Procedures 42266: [place] [address]: Biophysical Profile W NST [facility] [employer] PACS Anatomical Region Laterality Modality Other 04/23/2025 8:24 AM SUPERVISOR AGRICULTURAL EDUCATION us Madhavi Rivera MD [facility] ORDERABLES Edited Result - Final * Sonogram - Complete (02/19/2025 11:18 AM CDT) Linked Results Indication ======== Encounter for ultrasound to assess growth Sickle cell anemia w/o crisis complicating History ====== OB History 4. Para 3 [id number] 1. live 2015. Gest. age 39 w [...] 2 lb 12 oz EFW by Hadlock ([id number]) appropriate Growth Overview Exam date [place] BPD [...] were seen within the limits of ultrasound. SWIM INSTRUCTOR consult today Follow-up ======== Growth US in 4 weeks. Coding ====== Diagnoses Z36.3: Encounter for screening for malformations O99.013: Anemia complicating D58.2: Other hemoglobinopathies Procedures 85275: US Preg Uterus Follow Up . [facility] PACS Anatomical Region Laterality Modality Other 02/19/2025 11:1 8 AM CDT Madhavi Rivera MD [facility] ORDERABLES Edited Result - Final from Last 3 [place] [id number] [facility]
--- OUTSIDE RECORDS SUMMARY | 2025-05-01 10:24 | XMS_ITS | Clinical Summary ---
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
[2025-05-01] MEDS: ACETAMINOPHEN 500 MG TABLET 1000 MG PO ×2 (10:25→17:26)
--- NOTE | 2025-05-01 11:01 | LDADM ---
This patient, Trice Rock, was admitted to Labor/Delivery/Recovery 119 on 05/01/25 at 09:22. Plans for section, pain management and were discussed with patient. Patient/family oriented to hospital policies and general routines including ID bracelet, bed and alarms, visiting hours, pain management, procedures, bathroom and other care routines, personal items, smoking policy, room service/diet and guest tray routines, security routines, and visiting hours. Patient/Family are encouraged to report perceived risks to care and to ask questions if they do not understand what they are told or what they should do. See OBIX for further documentation.
--- NOTE | 2025-05-01 11:07 | WPDHPUPDATE1 ---
History and Physical Update Update Date/Time: 05/01/25 11:07 History and Physical has been reviewed, including an updated exam of the patient. There are NO changes in the patient's condition. Risks, benefits, and alternatives have been discussed and questions answered. Patient agrees to proceed with procedure.
--- NOTE | 2025-05-01 11:53 | WPDANESEPPF ---
Anes - Initial Pre Proc Eval Procedure: Operation Date: 05/01/25 12:00 Proposed Procedures p Repeat Section - Aman Snider MD Date/Time: 05/01/25 11:53 Surgeon: Aman Snider MD Pre Op Diagnosis: C Section Patient Data Age: 29 Gender: F Height: 1.7 m Weight: 85.2 kg Last Vital Signs Pulse 83 05/01/25 10:15 BP 115/69 05/01/25 10:15 O2 Del Method Room Air 05/01/25 10:57 Allergies Allergy/AdvReac Type Severity Reaction Status Date / Time strawberry Allergy Hives Verified 05/01/25 11:01 Home Medications ?Medication ?Instructions ?Recorded ?Confirmed ?Type acetaminophen 500 mg capsule 500 mg PO Q6H PRN pain #20 caps 09/21/24 04/28/25 Rx metoclopramide HCl 10 mg tablet 10 mg PO Q6H PRN nausea and 09/21/24 04/28/25 Rx vomiting #14 tabs docosahexaenoic acid 200 mg mg PO 12/09/24 04/28/25 History capsule ( DHA) cane #1 ea 02/05/25 04/28/25 Rx ferrous sulfate 325 mg (65 mg 325 mg PO DAILY #90 tabs 03/17/25 04/28/25 Rx iron) tablet valacyclovir 1 gram tablet 1,000 mg PO Q12H #14 tabs 04/14/25 04/28/25 Rx (Valtrex) valacyclovir 500 mg tablet 500 mg PO DAILY #90 tabs 04/14/25 04/28/25 Rx safety needles 25 gauge x 1 1/2 #100 ea 04/23/25 04/28/25 Rx Held on 04/28/25. Instructions: Order Change heparin (porcine) 5,000 unit/mL 10,000 unit (2 mL) subcut Q12H #24 04/28/25 04/28/25 Rx injection syringe mL Patient hx anesthesia problems: other (Pt reports that she got a spinal GIRALDO w prev spinal or epidural at [facility], required epidural blood patch. ) Family hx anesthesia problems: none Results Review: All pre-operative results and documents have been reviewed as part of the pre-operative evaluation. [facility] Past Medical History Medical History Sickle cell disease Surgical History Surgical History History of delivery Family History Family History Father Diabetes mellitus Grandparent Hypertension Social History Social History Smoking status: Never smoker Alcohol intake: former Alcohol use details: rare Substance use: never Substance use type: does not use Lack of Transportation: No Lack of Food: Never True Current Housing: Decline to Answer Concerned About Future Housing: Decline to Answer Difficulty Paying Gas/Electric Bills: Decline to Answer Difficulty Paying for Meds: Decline to Answer Currently Unemployed: Decline to Answer Education: Decline to Answer Difficulty w/ Childcare or Family Care: Decline to Answer Living arrangements: with family Occupation/Education: occupation Gender identity (if verbalized by the patient): Female Sexual Orientation (if Verbalized by the Patient): Straight or Heterosexual Spiritual care concerns: No Anes - Eval Final PreProcedure Day of Procedure 05/01/25 11:53 Patient weight: overweight Lungs: normal air movement Airway: Mallampati scale class II Neurological: alert and oriented Last oral intake: >/= 8 hours ASA classification: III Emergent: no Anesthetic plan: proceed Anesthesia type and monitoring: regional spinal and standard monitoring Results Review: All pre-operative results and documents have been reviewed as part of the pre-operative evaluation. Pt w hx of sickle cell disease, hx of PE 2019 w treatment on AC, lovenox bridged to heparin 5000U one time, last dose of heparin on Monday (four days ago). Informed Consent: The patient's anesthetic plan and its attendant risks and benefits were discussed with the patient/family/POA. Questions were solicited and answers provided to the satisfaction of the patient/family/POA.
[2025-05-01] MEDS: FAMOTIDINE 20 MG/2 ML VIAL IV PUSH (11:56)
[2025-05-01] MEDS: ONDANSETRON INJ 4 MG/2 ML VIAL IV PUSH (11:56)
[2025-05-01] MEDS: ceFAZolin 2 GM in SODIUM CHLORIDE 0.9% IV 50 ML 100 ML IVPB (12:04)
--- NOTE | 2025-05-01 13:13 | W.PM.OBCSD ---
OB - Delivery Note Procedure Delivery date: 05/01/25 Pre-op diagnosis: Previous Delivery Post-op Diagnosis: Same Procedure Performed: Repeat Secondary branch: low cervical, transverse Surgeon: Aman Snider MD Anesthesia type: Spinal Description of Procedure/Findings: Patient prepped and draped usual manner for this procedure. Pfannenstiel incision was made carried down the fascia which was extended bilaterally the incision. Superiorly and inferiorly dissected away from the rectus muscles. Muscles were dissected peritoneum readily entered bladder flap developed. Uterus scored low transverse manner without difficulty. Clear fluid was noted in vertex was delivered placenta was removed manually uterus was exterior the rear eyes and cleared of membranes and clots. This was closed using 0 Monocryl in a running interlocking manner good approximation hemostasis noted there was 1 area on the superior edge which was oozing which was rendered hemostatic using a [id number] Monocryl suture. In again uterine incision at this point was hemostatic with no bleeding. All subfascial tissue was noted be hemostatic and the fascia was approximated using 0 Vicryl from the left angle to the midline the right angle to the midline with good approximation hemostasis noted. Subcutaneous tissue approximated 0 plain suture and harry were then used to approximate the skin edges. Patient was then sent to the recovery room in stable condition. Specimen: Yes (Placenta) Estimated Blood Loss: 850 Drains: Yes (Zimmer) Packing: No Pathology: Yes (Placenta) Complications: No immediate complications Condition: Stable Disposition: PACU [place] Baby Gestational Age by Date: 39 gender: Male presentation: vertex Placenta delivery description: Manual Removal Cord Vessel Description: 3 Vessels
--- NOTE | 2025-05-01 13:41 | S_PTH ---
PATIENT: Trice Rock LOC: [facility] U#:[id number] AGE/SX: 29/F ROOM: 287 RE05/01/[address]: Royer Bhandari MD : 1995 BED: 00 DIS: 05/04/2025 SPEC #: [id number] RECD: 05/01/25 13:56 STATUS: CYNTHIA REHam #: [id number] INOCENTE: 05/01/25 13:[address]: Aman Snider DEPT: [facility] Surgical RECD BY: Laureen Phillips ENTERED: 05/01/25 13:57 SP TYPE: Surgical OTHR DR: UNKNOWN,DOCTOR Tissues: A - Placenta Procedures: Hematoxylin and Eosin Stain Gross and Microscopic Level 5
[2025-05-01] MEDS: LIDOCAINE 5% PATCH 1 PATCH TRANSDERM (14:44)
[2025-05-01] MEDS: SIMETHICONE 80 MG TAB.CHEW PO ×2 (14:44→17:26)
[2025-05-01] MEDS: KCL 20 MEQ/D5/0.45% SOD CHL 1,000 ML 125 ML IV CONT (15:51)
[2025-05-01] MEDS: DOCUSATE SODIUM 100 MG CAPSULE PO (17:26)
[2025-05-01] MEDS: KETOROLAC 15 MG/ML VIAL (*BKC) IV PUSH (17:26)
[2025-05-01] MEDS: oxyCODONE HCL (*CRX) 5 MG TAB IR 10 MG PO (22:08)
[2025-05-02] MEDS: ENOXAPARIN 40 MG/0.4 ML SYRINGE SUB-Q (00:54)
[2025-05-02] MEDS: KETOROLAC 15 MG/ML VIAL (*BKC) IV PUSH ×2 (00:56→07:12)
[2025-05-02] MEDS: ACETAMINOPHEN 500 MG TABLET 1000 MG PO ×4 (00:56→19:15)
[2025-05-02] MEDS: oxyCODONE HCL (*CRX) 5 MG TAB IR 10 MG PO ×3 (04:25→18:24)
[2025-05-02 04:57] LABS: Hematocrit 25.9 % (37.0-47.0); Hemoglobin 8.7 g/dL (12.0-15.0); Immature Granulocyte Percent A 0.5 % (0-0.5); Immature Platelet Fraction Pct 9.5 % (0.9-11.2); Lymphocytes Absolute Auto 1.43 K/mm3 (0.9-3.2); Mean Corpuscular HGB Conc 33.6 g/dl (32-36); Mean Corpuscular Hemoglobin 24.4 pg (26-34); Mean Corpuscular Volume 72.5 fl (80-100); Nucleated Red Blood Cells Absolute Auto 0.000 K/mm3 (0.0-0.012); Nucleated Red Blood Cells Perc 0.0 % (0.0-0.2); Platelet Count Result 147 k/mm3 (150-375); Red Blood Count 3.57 M/mm3 (4.2-5.4); White Blood Count 9.3 K/mm3 (4.5-10.0)
[2025-05-02 05:30] LABS: Anisocytosis 1+; Hypochromasia 1+; Ovalocytes 1+; Schistocytes None Seen; Target Cells Occasional
[2025-05-02 07:10] VITALS: BP 101/59; PULSE 69; RESP 10; TEMP 36.7; O2SAT 100
[2025-05-02] MEDS: PROMETHAZINE HCL 25 MG/ML AMPUL 12.5 MG IV PUSH (08:30)
--- NOTE | 2025-05-02 08:49 | P.PNOB_ITS ---
OB - PN: Subj Subjective Date/time seen: 05/02/25 08:49 S: continues with itching. otherwise doing well. O: VSS afebrile abd: +BS soft labs: noted A: postop/ day 1 P: routine care declines circumcision (yesterday desired) OB - PN: Obj Data Labs 05/02/25 04:14 Labs: Laboratory Results - last 24 hr 05/02/25 04:14 WBC 9.3 RBC 3.57 L Hgb 8.7 L Hct 25.9 L MCV 72.5 L MCH 24.4 L MCHC 33.6 RDW 17.5 H Plt Count 147 L MPV TNP Immature Gran % (Auto) 0.5 Neut % (Auto) 76.3 H Lymph % (Auto) 15.3 L [place] % (Auto) 7.6 Eos % (Auto) 0.0 Baso % (Auto) 0.3 Lymph # (Auto) 1.43 [place] # (Auto) 0.7 H Eos # (Auto) 0.0 Baso # (Auto) 0.0 Abs Immat Gran (auto) 0.05 H Absolute Neuts (auto) 7.1 H Absolute Nucleated RBC 0.000 Band Neutrophils % Not Reportable Nucleated RBC % 0.0 Platelet Estimate Slightly decreased % Immature Plt Fraction 9.5 Hypochromasia 1+ Anisocytosis 1+ Target Cells Occasional Ovalocytes 1+ Schistocytes None seen OB - PN A/P Time Spent With Patient Time: Total time spent is greater than 50% in coordination of care (as documented) at patient's floor/unit and/or counseling patient:
[2025-05-02] MEDS: SIMETHICONE 80 MG TAB.CHEW PO ×3 (09:13→17:08)
[2025-05-02] MEDS: DOCUSATE SODIUM 100 MG CAPSULE PO ×2 (09:13→17:08)
[2025-05-02] MEDS: MULTIVIT/MIN/PREN/FOL AC/IRON TABLET 1 TAB PO (09:13)
[2025-05-02 11:40] VITALS: BP 105/67; PULSE 78; RESP 12; TEMP 36.9; O2SAT 98
--- NOTE | 2025-05-02 12:36 | PC.NURSE ---
Mother verbalizes she is able to independently latch with appropriate positioning and alignment. She denies any nipple discomfort and is responsively . Infant is currently meeting outcomes for weight, output, jaundice, blood sugar and feeding frequencies of 8-12 times in 24 hours. Breast pump provided due to mother's request. Instructions given on cleaning, care, usage, that there should be no pain, pumping schedule for milk production, collection, and storage of human milk. Patient was assessed for correct placement, flange size, to pump for comfort and nipple stretching/stimulation for adequate milk production every 3 hours (8 times in 24 hours) 1-2 times at night. Parents are encouraged to record the pumping schedule on the feeding sheet.?Mother voiced understanding of the education shared along with mom/baby guide and the pump measurement, flange fit handout for additional resource information. Mother is encouraged to call for assistance if her doesn?t latch, pain with latching, questions or concerns. Mother voiced understanding of information shared along with the mom/baby guide for an additional resource. Reported to the Primary RN.
--- NOTE | 2025-05-02 12:51 | WPDANLDPN2 ---
Anes-Prog Note L&D Date/Time: 05/02/25 12:51 Comfortable throughout: section Neuraxial method: spinal Epidural/Spinal procedure site: clean & non-tender Neuro status: Neuro function grossly intact. Vital Signs: Last Vital Signs Temp 36.9 C 05/02/25 11:40 Pulse 78 05/02/25 11:40 Resp 12 05/02/25 11:40 BP 105/67 05/02/25 11:40 Pulse Ox 98 05/02/25 11:40 O2 Del Method Room Air 05/01/25 19:50 Pain score (VAS): 0 I/O: Intake & Output 05/01/25 05/02/25 05/02/25 23:59 07:59 15:59 Intake Total 1350 1560 100 Output Total 2150 1500 2000 Balance -800 60 -1900 Patient feedback: Patient satisfied with anesthetic care.
--- NOTE | 2025-05-02 12:51 | WPDANLDNPN2 ---
Anes-Prog Note L&D-Neuraxial Date/Time: 05/02/25 12:51 Patient feedback: Patient satisfied with post-operative pain management.
[2025-05-02] MEDS: IBUPROFEN 600 MG TABLET PO ×2 (13:12→19:15)
[2025-05-02 19:33] VITALS: BP 112/68; PULSE 93; RESP 18; TEMP 36.4; O2SAT 100
[2025-05-02] MEDS: LIDOCAINE 5% PATCH 1 PATCH TRANSDERM (23:20)
[2025-05-03] MEDS: oxyCODONE HCL (*CRX) 5 MG TAB IR 10 MG PO ×2 (00:30→16:53)
[2025-05-03] MEDS: IBUPROFEN 600 MG TABLET PO ×4 (01:20→20:41)
[2025-05-03] MEDS: ACETAMINOPHEN 500 MG TABLET 1000 MG PO ×4 (01:20→20:41)
[2025-05-03] MEDS: ENOXAPARIN 40 MG/0.4 ML SYRINGE SUB-Q (01:20)
[2025-05-03] MEDS: oxyCODONE HCL (*CRX) 5 MG TAB IR PO ×3 (05:20→22:40)
[2025-05-03 08:00] VITALS: BP 108/69; PULSE 85; RESP 16; TEMP 36.9; O2SAT 100
[2025-05-03] MEDS: SIMETHICONE 80 MG TAB.CHEW PO ×3 (08:01→16:53)
[2025-05-03] MEDS: DOCUSATE SODIUM 100 MG CAPSULE PO ×2 (08:01→16:53)
[2025-05-03] MEDS: MULTIVIT/MIN/PREN/FOL AC/IRON TABLET 1 TAB PO (08:01)
--- NOTE | 2025-05-03 14:02 | P.PNOB_ITS ---
OB - PN: Subj Subjective Date/time seen: 05/03/25 14:02 Narrative: Pain OK. Tolerating diet. Receiving daily Lovenox. OB - PN: Obj Data Labs 05/02/25 04:14 OB - PN A/P Plan Comments: A: POD#2, doing well. P: Continue Lovenox. Routine care. Exam 2 Narrative: AVSS I/O OK ABD soft, nontender, fundus firm. Incision c/d/i. EXT nontender
[2025-05-03 20:05] VITALS: BP 112/66; PULSE 87; RESP 18; TEMP 37.1; O2SAT 99
[2025-05-04] MEDS: ENOXAPARIN 40 MG/0.4 ML SYRINGE SUB-Q (01:15)
[2025-05-04] MEDS: LIDOCAINE 5% PATCH 1 PATCH TRANSDERM (01:15)
[2025-05-04] MEDS: ACETAMINOPHEN 500 MG TABLET 1000 MG PO ×3 (03:05→14:35)
[2025-05-04] MEDS: IBUPROFEN 600 MG TABLET PO ×3 (03:05→14:35)
[2025-05-04] MEDS: MULTIVIT/MIN/PREN/FOL AC/IRON TABLET 1 TAB PO (08:28)
[2025-05-04] MEDS: SIMETHICONE 80 MG TAB.CHEW PO ×2 (08:28→14:34)
[2025-05-04] MEDS: DOCUSATE SODIUM 100 MG CAPSULE PO (08:28)
[2025-05-04] MEDS: oxyCODONE HCL (*CRX) 5 MG TAB IR PO (08:31)
--- NOTE | 2025-05-04 09:52 | P.PNOB_ITS ---
OB - PN: Subj Subjective Date/time seen: 05/04/25 09:52 Narrative: Pain OK. Tolerating diet. Would like to go home. OB - PN: Obj Data Labs 05/02/25 04:14 OB - PN A/P Plan day: 3 Comments: A: POD#3, doing well. P: Home to f/u 4 weeks. Exam 2 Narrative: AVSS ABD soft, nontender, fundus firm. Incision c/d/i. EXT nontender
[2025-05-04 10:30] VITALS: BP 115/73; PULSE 87; RESP 18; TEMP 36.9
[2025-05-06 10:54] VITALS: BP 121/77; PULSE 68; RESP 18; TEMP 37.2; O2SAT 100
--- NOTE | 2025-05-06 11:04 | PM.OBDSVD ---
DS: Admitting Diagnosis Discharge Date 05/04/25 Admitting Diagnosis DS: Discharge Diagnosis Discharge Diagnosis (1) , delivered: Code(s): O80 - Encounter for full-term uncomplicated delivery Status: Acute OB - DS: Summary OB Procedures : None OB Procedures Intrapartum: low cervical, transverse OB Procedures: : None Peripartum Data Procedures: Procedures Operation Date: 05/01/25 12:00 Actual Procedure Side Surgeon p Section Not Applicable Aman Snider MD Time Spent with Patient Time attestation: Total time spent providing and/or coordinating discharge services: DS: Data Data Completed and Pending Completed studies during hospitalization: Pending at discharge 05/01/25 13:41 Surgical [PTH] Routine Discharge Plan Discharge Attending physician on discharge: Aman Snider Discharging Clinician: Royer Bhandari Patient Disposition: Home Activity: may shower, may drive after 2 weeks and pelvic rest Diet: regular Wound Care Instructions: incision open to air Discharge Instructions: Call or return if temperature above 100.4? F, increased abdominal pain, increased vaginal bleeding or any new problems. Education: Mom and Baby Guide Given to: Mother Follow-Up: Call your delivering provider's office for an appointment to be seen in: 1 Week Mom and baby should come to the [facility] for the follow-up appointment. Appointment Date/Time: May 06, 2025 at 10:00 am What to expect at your follow-up visit: Blood Pressure Check, Physical Assessment, Removal of [place] Call [phone] if you are unable to keep your appointment time. BREAST CARE: * Wear a snug supportive bra. * For engorgement discomfort: Breast Feeding: * Apply warm moist washcloths * Express milk as needed to relieve engorgement * Wear loose clothing Bottle Feeding: * May apply ice packs * For sore nipples: * Identify correct latch-on * Apply warm moist washcloths before and after nursing * Air dry nipples after nursing * May apply Lansinoh cream to nipples ABDOMINAL INCISION: (if applicable) * Allow incision to air dry * Do NOT use lotions for powders on your incision * When showering, allow soap and water to run over the incision, but do not wash incision EPISIOTOMY/PERINEAL CARE: * Until bleeding stops, use your hailee bottle after urinating * Change your pad frequently throughout the day * No tub baths until seen by your physician - You may shower ACTIVITY: * Rest as much as possible. * Do not exercise or lift anything heavier than your baby (such as laundry or other children.) * Avoid stairs or driving as much as possible. * Do not put anything into the vagina. No douching, tampons, or sexual activity until seen by physician. NOTIFY PHYSICIAN IF YOU HAVE ANY QUESTIONS OR IF ANY OF THE FOLLOWING SYMPTOMS OCCUR: * If your incision becomes red, swollen, or more painful than what you have experienced in the hospital. * If your vaginal bleeding becomes foul smelling. * If your vaginal bleeding becomes more heavy than a period or if your bleeding changes from pink to bright red. However, you may pass an occasional walnut-sized clot once or twice for the first week . * If you experience a sharp, shooting pain in you calves. * If you discover a hard, reddened area on your breast or if you experience flu-like symptoms. DIET: * Eat regular, well-balanced meals. * Drink plenty of fluids daily. If , drink to thirst. Patient Language: Comoran Stand Alone Forms: General Discharge Information Follow-up/Referrals: Aman Snider MD [Physician, GANG HEMSTITCHING MACHINE OPERATOR] - Call for Appointment Discharge Medications: New ibuprofen 600 mg tablet 600 mg PO Q6H PRN (Reason: cramps) Qty: 30 0RF oxycodone-acetaminophen [Endocet] 5-325 mg tablet 1 - 2 tablet PO Q6H PRN (Reason: pain) Qty: 30 0RF enoxaparin [Lovenox] 40 mg/0.4 mL syringe 40 mg subcut DAILY Qty: 4 1RF Continued DHA 200 mg capsule PO ferrous sulfate 325 mg (65 mg iron) tablet 325 mg PO DAILY Qty: 90 0RF valacyclovir 500 mg tablet 500 mg PO DAILY Qty: 90 0RF acetaminophen 500 mg capsule 500 mg PO Q6H PRN (Reason: pain) Qty: 20 0RF metoclopramide HCl 10 mg tablet 10 mg PO Q6H PRN (Reason: nausea and vomiting) Qty: 14 0RF (DME) cane Device See Rx Instructions .Route Qty: 1 0RF Rx Instructions: As directed (DME) safety needles 25 gauge x 1 1/2 needle See Rx Instructions .Route Qty: 100 1RF Rx Instructions: As directed Discontinued heparin (porcine) 5,000 unit/mL syringe 10,000 unit subcut Q12H Qty: 24 0RF valacyclovir [Valtrex] 1 gram tablet 1,000 mg PO Q12H Qty: 14 0RF Date of admission: 05/01/25 09:22 Primary Care Provider: UNKNOWN,DOCTOR Admitting Provider: Aman Snider Attending physician on admission: Aman Snider Condition: Stable
== END 2025-05-04 15:00 | disposition home or self-care (01) | DRG 540 ==
LOC: ANHLDR 09:31 → ANHOB2 16:52 → ANHLDR 05-06 11:34
PROVIDERS: Admitting Provider Obstetrics & Gynecology; Visit Provider Obstetrics & Gynecology
PROC: 10D00Z1 Extraction of Products of Conception, Low, Open Approach (ICD-10-PCS; CPT 59514; principal; 2025-05-01 12:00)
DX: O34.211 Maternal care for low transverse scar from previous cesarean delivery (principal); Z37.0 Single live birth; Z3A.39 39 weeks gestation of pregnancy
CPT/HCPCS: 36415; 85025; 85055; 88307; J0690; A9270; J1100; J1200; J1650; J1885; J2274; J2371; J2405; J2550; J3480; J7120

== ENCOUNTER 2025-05-06 20:28 | Emergency (ER) | payer OTHER, SELFPAY ==
--- NOTE | ~2025-05-06 | XR_ITS ---
EXAMINATION: XR chest 2V 05/06/2025 21:13 INDICATION: Shortness of breath. PROCEDURE: 2 view chest COMPARISON: 02/09/2025 FINDINGS: The lungs are clear. The cardiomediastinal silhouette is within normal limits. There are no pleural effusions. There is no pneumothorax suspected. IMPRESSION: 1: NO ACUTE CARDIOPULMONARY DISEASE. Reviewed, dictated and finalized at location O. GRATION SOLUTION ARCHITECT
--- NOTE | ~2025-05-06 | CT_ITS ---
EXAMINATION: CTA chest PE abdomen pel DATE: 05/07/2025 01:46 INDICATION: Shortness of breath. TECHNIQUE: Computed tomography angiography (CTA) of the chest was performed with 100 mL Omnipaque-350 intravenous contrast timed to evaluate the pulmonary arteries. Coronal maximum intensity projection 3D-reconstructions were created by the technologist. Computed tomography (CT) of the abdomen and pelvis was performed with intravenous contrast. Automated exposure control and iterative reconstruction technique were employed. The dose-length product was 1197.17 mGy-cm. COMPARISON: None. FINDINGS: CTA chest: The lungs demonstrate mild atelectasis. There are small pleural effusions. The heart size is normal. No pericardial effusion. There is no pulmonary embolus. There is mild thoracic spondylosis. CT abdomen and pelvis: The liver and gallbladder are normal. There is mild splenomegaly. The pancreas, adrenal glands, and kidneys are normal. The uterus is enlarged, consistent with recent . The endometrial complex is thickened to 2.2 cm. There is hematoma superficial to the section site in the lower uterine segment measuring 9.0 x 7.7 x 2.4 cm. There are no pathologically enlarged lymph nodes. There is no free intraperitoneal fluid. There is mild lumbar spondylosis. IMPRESSION: 1. Hematoma superficial to the anterior lower uterine segment measuring 9.0 x 7.7 x 2.4 cm. 2. Thickened endometrial complex, likely hematoma. Retained products of conception are not excluded. 3. No pulmonary embolus. 4. Small pleural effusions. Reviewed, dictated and finalized at location E. SOAPER TENDER IMPRESSION: 1. Hematoma superficial to the anterior lower uterine segment measuring 9.0 x 7 .7 x 2.4 cm. 2. Thickened endometrial complex, likely hematoma. Retained products of concept ion are not excluded. 3. No pulmonary embolus. 4. Small pleural effusions.
[2025-05-06 20:33] VITALS: BP 137/92; PULSE 101; RESP 26; TEMP 36.9; O2SAT 100
--- NOTE | 2025-05-06 22:41 | PC.NURSE ---
Called pt back for blood work, EKG, and vitals and no response from triage.
--- OUTSIDE RECORDS SUMMARY | 2025-05-06 23:43 | XMS_ITS | Clinical Summary ---
Author Organization [facility] Address [address] [place] [address] Care Team Providers Care Rehab Liaison Name Role Phone Unavailable Primary Care Provider Unavailabl e Source Comments [facility],non-owned Affiliates and Associated Physician Practices is amultiple site organization consisting of ambulatory clinics and hospital sitesin [place], [place], [place] and [place]. This disclosure is being madepursuant to the Care Everywhere program and may not contain all information available regarding this patient. Last updated 18.[facility] Allergies No known active allergies Medications * [...] directed 1 Each 03/26/20 25 Active heparin 18610 UNIT/ML injectionIndica tions:Deep Vein Thrombosis Prophylaxis Inject 0.1 mL subcutaneously 2 times daily Reasons: Treatment to Prevent Deep Vein Thrombosis Active Active Problems Problem Noted Date Diagnosed Date History of pulmonary embolism 12/25/2024 Hemoglobinopathy: Sickle S-HPFH disease. 025 Overview (12/25/2024): Hematology [facility] 03/22/23 Herpes simplex type 2 (HSV-2 ) [...] Department Care Team Description 04/23/2025 8:15 AM ENVIRONMENTAL CONSULTANT - 04/23/2025 11:59 PM ENVIRONMENTAL CONSULTANT Hospital Encounter [facility] [address] [place] [id number] Lucero Alberto MD Discharge Disposition: Home or Self Care 03/26/2025 9:45 AM ENVIRONMENTAL CONSULTANT - 03/26/2025 11:59 PM ENVIRONMENTAL CONSULTANT Hospital Encounter [facility] [address] [place] [id number] Rene Velez MD Mead, Judith A, MD Discharge Disposition: Home or Self Care 02/27/2025 Refill [facility] [address] [place] [id number] Nirmala Melton APRN-ANGELA MEDICATION REFILL 02/19/2025 11:10 AM CDT - 02/19/2025 11:59 PM CDT Hospital Encounter [facility] [address] [place] [id number] Lucero Alberto MD Discharge Disposition: Home or Self Care 02/19/2025 11:09 AM CDT Hospital Encounter [facility] [address] [id number] Lucero Alberto MD Discharge Disposition: Home or [...] Comments Blood Pressure 111/73 04/23/2025 8:58 AM ENVIRONMENTAL CONSULTANT Pulse 90 04/23/2025 8:58 AM ENVIRONMENTAL CONSULTANT Temperature - - Respiratory Rate - - Oxygen Saturation - - Inhaled Oxygen Concentration - - Weight 85.3 kg (188 lb) 04/23/2025 8:58 AM ENVIRONMENTAL CONSULTANT Height 170.2 cm (5' 7) 02/19/2025 11:38 [...] PROFILE W NST Routine 04/23/2025 8:24 AM ENVIRONMENTAL CONSULTANT Hemoglobinopathy: Sickle S-HPFH disease. History of pulmonary embolism Fourth (HCC) Encounter for ultrasound to assess growth (HCC) High risk multigravida in second trimester (HCC) Encounter for other screening follow-up (HCC) BIOPHYSICAL PROFILE W NST Routine 03/26/2025 10:56 AM ENVIRONMENTAL CONSULTANT Hemoglobinopathy: Sickle S-HPFH disease. History of pulmonary [...] Biophysical Profile w NST (04/23/2025 8:24 AM ENVIRONMENTAL CONSULTANT) Only the most recent of2 resultswithin the time period is included. Linked Results Indication ======== Encounter for ultrasound to assess growth Sickle cell anemia w/o crisis complicating Hgb S/ HPFH. History ====== OB History 4. Para 3 [id number] 1. live 2015. Gest. age 39 w [...] 7 lb 1 oz EFW by Hadlock ([id number]) appropriate Growth Overview Exam date [place] BPD [...] O99.013: Anemia complicating D58.2: Other hemoglobinopathies Procedures 81017: [place] [address]: Biophysical Profile W NST [facility] [employer] PACS Anatomical Region Laterality Modality Other 04/23/2025 8:24 AM ENVIRONMENTAL CONSULTANT us Madhavi Rivera MD [facility] ORDERABLES Edited Result - Final * Sonogram - Complete (02/19/2025 11:18 AM CDT) Linked Results Indication ======== Encounter for ultrasound to assess growth Sickle cell anemia w/o crisis complicating History ====== OB History 4. Para 3 [id number] 1. live 2015. Gest. age 39 w [...] 2 lb 12 oz EFW by Hadlock ([id number]) appropriate Growth Overview Exam date [place] BPD [...] were seen within the limits of ultrasound. [facility] consult today Follow-up ======== Growth US in 4 weeks. Coding ====== Diagnoses Z36.3: Encounter for screening for malformations O99.013: Anemia complicating D58.2: Other hemoglobinopathies Procedures 87441: US Preg Uterus Follow Up [facility] PACS Anatomical Region Laterality Modality Other 02/19/2025 11:1 8 AM CDT Madhavi Rivera MD [facility] ORDERABLES Edited Result - Final from Last 3 [place] [phone] [facility]
--- OUTSIDE RECORDS SUMMARY | 2025-05-06 23:43 | XMS_ITS | Clinical Summary ---
Author Organization [facility] Address [address] [place] [address] Care Team Providers Care Car Ferry Master Name Role Phone Marcy Garcia PA-C Primary Care Provider [phone]- [phone] Allergies Active Allergy Reactions Criticality Noted Date Comments Ascorbate Rash Medium 07/08/2019 Capsicum Hives Medium 03/22/2023 Elderberry-Vitamin C-Zinc Rash Low 07/08/2019 Jalapeno peppers Misc Natural Products Hives Medium 11/03/2023 Strawberries Hives,Itching Medium 05/18/2015 Filion Extract Rash Low 07/08/2019 Medications topiramate (TOPAMAX) [...] 2012 01/20/2012 Hepatitis C 07/18/2013 PHQ-2 (Physician [place]) 05/15/2024 COVID-19 Vaccine ( season) 2025 01/24/2022, [...] this topic Insurance [employer] Care Teams Car Ferry Master Relationship Specialty Start Date End Date Marcy Garcia PA-C [address] [place] [phone] PCP - General PHYSICIAN MENTAL HEALTH AIDE 11/07/24
[2025-05-07 00:54] VITALS: PULSE 85
[2025-05-07 00:57] VITALS: O2SAT 99
[2025-05-07 00:58] LABS: Hematocrit 25.4 % (37.0-47.0); Hemoglobin 8.8 g/dL (12.0-15.0); Immature Granulocyte Percent A 1.1 % (0-0.5); Immature Platelet Fraction Pct 4.9 % (0.9-11.2); Lymphocytes Absolute Auto 1.27 K/mm3 (0.9-3.2); Mean Corpuscular HGB Conc 34.6 g/dl (32-36); Mean Corpuscular Hemoglobin 24.4 pg (26-34); Mean Corpuscular Volume 70.6 fl (80-100); Nucleated Red Blood Cells Absolute Auto 0.040 K/mm3 (0.0-0.012); Nucleated Red Blood Cells Perc 0.6 % (0.0-0.2); Platelet Count Result 186 k/mm3 (150-375); Red Blood Count 3.60 M/mm3 (4.2-5.4); White Blood Count 6.5 K/mm3 (4.5-10.0)
[2025-05-07 00:59] VITALS: BP 143/86; PULSE 85; RESP 19; O2SAT 99
[2025-05-07 01:09] LABS: INR 1.0; Partial Thromboplastin Time 34.0 Seconds (22.3-36.8); Prothrombin Time 12.9 Seconds (11.1-14.7)
[2025-05-07 01:11] LABS: Alanine Aminotransferase 27 U/L (6-35); Albumin Level 3.6 g/dL (3.5-5.1); Alkaline Phosphatase 92 U/L (38-126); Anion Gap 4 mmol/L (4-12); Aspartate Amino Transferase 37 U/L (14-36); Bilirubin,Total 0.5 mg/dL (0.2-1.3); Blood Urea Nitrogen 11 mg/dL (7-17); Calcium 9.5 mg/dL (8.4-10.2); Carbon Dioxide 25 mmol/L (22-30); Chloride 107 mmol/L (98-107); Estimated CRCL calculation 106 ml/min; Estimated Glomerular Filt Rate > 60; Glucose 87 mg/dL (65-110); Potassium 4.0 mmol/L (3.4-5.0); Sodium 136 mmol/L (137-145); Total Protein 7.4 g/dL (6.3-8.2); Uric Acid 7.3 mg/dL (2.5-7.5)
--- NOTE | 2025-05-07 01:12 | ECG_ITS ---
Test Date: 2025-05-07 01:12:35 Measurements Intervals [place] Rate: 82 P: 62 NV: 139 QRS: 16 QRSD: 85 T: 31 QT: 327 QTc: 383 Interpretive Statements SINUS RHYTHM BASELINE ARTIFACT- I, II, III, AVR, AVL, AVF, V1-V6 NORMAL ECG No previous ECG available for comparison Electronically Signed On 05-07-2025 07:14:47 CHIEF VENDOR QUALITY by Steven Cyr D.O.
[2025-05-07 01:25] LABS: Magnesium 1.9 mg/dL (1.6-2.3)
[2025-05-07 01:27] LABS: Hypochromasia 1+; Ovalocytes 1+; Poikilocytosis 1+; Schistocytes None Seen; Target Cells Occasional
--- NOTE | 2025-05-07 03:15 | ED.GENADULT ---
HPI - General Adult General Chief complaint: Shortness of Breath/Dyspnea Stated complaint: sob Time Seen by Provider: 05/06/25 22:55 History of Present Illness HPI narrative: 29-year-old female presenting 5 days s/p Caesarean section with complaints of midline chest pain that radiates to her back as well as shortness of breath, intermittent headaches, high blood pressure, and vision changes described as ?floaters? since earlier today. Patient has a significant history of a PE during her last in 2019 as well sickle-cell anemia. She is being treated with Lovenox prophylactically during this . Denies urinary symptoms, vaginal complaints, fevers/chills. Sees Dr. Mejía with OBGYN. Related Data Home Medications ?Medication ?Instructions ?Recorded ?Confirmed ?Last Taken ?Type docosahexaenoic acid 200 mg mg PO 12/09/24 04/28/25 04/09/25 History capsule ( DHA) Allergies Allergy/AdvReac Type Severity Reaction Status Date / Time strawberry Allergy Hives Verified 05/06/25 20:29 Review of Systems Review of Systems: All systems reviewed & are unremarkable except as noted in HPI and below PMFSH Past Medical History Medical History Sickle cell disease Surgical History Surgical History History of delivery Family History Family History Father Diabetes mellitus Grandparent Hypertension Social History Social History Smoking status: Never smoker Alcohol intake: former Alcohol use details: rare Substance use: never Substance use type: does not use Lack of Transportation: No Lack of Food: Sometimes True Current Housing: I Have Housing Concerned About Future Housing: No Difficulty Paying Gas/Electric Bills: No Difficulty Paying for Meds: No Currently Unemployed: YES Education: Trade/Vocational Certificate Difficulty w/ Childcare or Family Care: No Living arrangements: with family Occupation/Education: occupation Gender identity (if verbalized by the patient): Female Sexual Orientation (if Verbalized by the Patient): Straight or Heterosexual Spiritual care concerns: No Exam Narrative: GENERAL: Uncomfortable. HEAD: Normocephalic, atraumatic. EYES: PERRLA and EOMI. ENT: Nares clear, no rhinorrhea or epistaxis. Mucous membranes moist. Oropharynx without tonsillar hypertrophy exudate or other lesions. Bilateral TMs pearly trevizo non-bulging NECK: Supple. No adenopathy or masses. No carotid bruits or JVD CHEST: Clear to auscultation. No respiratory distress, but appears short of breath. No wheezes rales or rhonchi HEART: Regular rate and rhythm. No murmur heard. Normal peripheral pulses. ABDOMEN: Lower abdomen TTP. Normal active bowel sounds. section incision clean, dry, and intact without erythema, drainage, or dehiscence. EXTREMITIES: Normal range of motion. No edema. SKIN: Warm, dry, no rash. NEURO: No focal deficits. Alert and oriented x3. PSYCH: Normal mood and affect Course Vital Signs Vital signs: Vital Signs Temperature 98.4 F 05/06/25 20:33 Pulse Rate 101 H 05/06/25 20:33 Respiratory Rate 26 H 05/06/25 20:33 Blood Pressure 137/92 H 05/06/25 20:33 Pulse Oximetry 100 05/06/25 20:33 Oxygen Delivery Room Air 05/06/25 20:33 Temperature 98.4 F 05/06/25 20:33 Pulse Rate 84 05/07/25 06:12 Respiratory Rate 17 05/07/25 06:12 Blood Pressure 133/78 05/07/25 06:12 Pulse Oximetry 99 05/07/25 06:12 Oxygen Delivery Room Air 05/07/25 00:57 [facility] Narrative Medical decision making narrative: 29-year-old female presenting 5 days s/p Caesarean section with complaints of midline chest pain that radiates to her back as well as shortness of breath, intermittent headaches, high blood pressure, and vision changes described as ?floaters? since earlier today. Patient has a significant history of a PE during her last in 2019 as well sickle-cell anemia. She is being treated with Lovenox prophylactically during this . Denies urinary symptoms, vaginal complaints, fevers/chills. Sees Dr. Mejía with OBGYN. Upon my initial assessment patient appears uncomfortable with an elevated blood pressure at 143/86. She is afebrile with a normal heart rate. Imaging demonstrates a hematoma superficial to the anterior lower uterine segment measuring 9.0 x 7.7 x 2.4 cm; Thickened endometrial complex, likely hematoma - retained products of conception are not excluded; No pulmonary embolus; Small pleural effusions. COVID flu RSV negative. UA within normal limits. EKG without significant high-risk changes. Discussed with OBGYN Dr. Bhandari patient presentation and workup who recommends close follow-up next week for bp recheck. Agrees with discharge at this time. Differential diagnosis and treatment plan were discussed with the patient. Patient agrees with discussion and after shared medical decision making agrees with plan of care. All questions were answered to the patient's satisfaction. The patient is appropriate for outpatient treatment and follow-up. Given reasons to return. Differential Diagnosis Differential Diagnosis: Differential diagnostic considerations for chest pain include ACS, aortic dissection, pneumothorax, pulmonary embolus, joaquim/pericarditis, angina, STEMI, esophageal abnormality, GI etiology, pneumonia, rib fracture, biliary colic, atypical/non-cardiac ([facility]K, etc). Medical Records I have reviewed the following patient records and this information was taken into consideration when formulating the assessment and plan.: previous labs, previous ER visits, previous hospitalizations and previous clinic visits Lab Data MDM Lab Attestation statement: I personally reviewed the patient's lab results. 05/07/25 00:50 05/07/25 00:50 Labs: Lab Results 05/07/25 05/07/25 Range/Units 00:50 04:50 WBC 6.5 (4.5-10.0) K/mm3 RBC 3.60 L (4.2-5.4) M/mm3 Hgb 8.8 L (12.0-15.0) g/dL Hct 25.4 L (37.0-47.0) % MCV 70.6 L (80-100) fl MCH 24.4 L (26-34) pg MCHC 34.6 (32-36) g/dl RDW 19.2 H (11.5-14.5) % Plt Count 186 (150-375) k/mm3 MPV TNP Immature Gran % (Auto) 1.1 H (0-0.5) % Neut % (Auto) 71.4 (45.5-73.1) % Lymph % (Auto) 19.6 (18.3-44.2) % [place] % (Auto) 5.4 (2.6-8.5) % Eos % (Auto) 1.9 (0-4.4) % Baso % (Auto) 0.6 (0.2-1.2) % Lymph # (Auto) 1.27 (0.9-3.2) K/mm3 [place] # (Auto) 0.4 (0.1-0.6) K/mm3 Eos # (Auto) 0.1 (0-0.3) K/mm3 Baso # (Auto) 0.0 (0.0-0.1) K/mm3 Abs Immat Gran (auto) 0.07 H (0.00-0.031) K/mm3 Absolute Neuts (auto) 4.6 (1.3-6.7) K/mm3 Absolute Nucleated RBC 0.040 H (0.0-0.012) K/mm3 Band Neutrophils % Not Reportable Nucleated RBC % 0.6 H (0.0-0.2) % Platelet Estimate Adequate (Adequate) % Immature Plt Fraction 4.9 (0.9-11.2) % Hypochromasia 1+ Poikilocytosis 1+ Target Cells Occasional Ovalocytes 1+ Schistocytes None seen PT 12.9 (11.1-14.7) Seconds INR 1.0 APTT 34.0 (22.3-36.8) Seconds Sodium 136 L (137-145) mmol/L Potassium 4.0 (3.4-5.0) mmol/L Chloride 107 (98-107) mmol/L Carbon Dioxide 25 (22-30) mmol/L Anion Gap 4 (4-12) mmol/L BUN 11 D (7-17) mg/dL Creatinine 0.76 (0.7-1.0) mg/dL Estim Creat Clear Calc 106 ml/min Estimated GFR > 60 (59 - ) Glucose 87 (65-110) mg/dL Uric Acid 7.3 (2.5-7.5) mg/dL Calcium 9.5 (8.4-10.2) mg/dL Magnesium 1.9 (1.6-2.3) mg/dL Total Bilirubin 0.5 (0.2-1.3) mg/dL AST 37 H (14-36) U/L ALT 27 (6-35) U/L Alkaline Phosphatase 92 (38-126) U/L Total Protein 7.4 (6.3-8.2) g/dL Albumin 3.6 (3.5-5.1) g/dL Urine Color Yellow (Yellow) Urine Appearance Clear (Clear) Urine pH 7.0 (5.0-9.0) Ur Specific [place] 1.035 (1.001-1.035) Urine Protein Negative (Negative) mg/dL Urine Glucose (UA) Negative (Negative) mg/dL Urine Ketones Negative (Negative) mg/dL Ur Blood (Man) 2+ H (Negative) Urine Nitrate Negative (Negative) Urine Bilirubin Negative (Negative) Urine Urobilinogen 1.0 (<2.0) mg/dL Leukocyte Esterase Rfl Trace H (Negative) JULIUS/UL Urine RBC 3-5 H (0-2) /hpf Urine WBC 0-5 (0-3) /hpf Ur Squamous Epith Cells None seen (Few) /hpf Urine Bacteria None seen /hpf Urine Casts 0-2 Influenza A (RT-PCR) Negative (Negative) Influenza B (RT-PCR) Negative (Negative) RSV (RT-PCR) Negative (Negative) SARS-CoV-2 RNA (RT-PCR) Negative (Negative) Imaging Data Radiologist's impression: ITS Impressions Chest X-Ray 05/06/25 21:15 IMPRESSION: 1: NO ACUTE CARDIOPULMONARY DISEASE. Chest/Abdomen/Pelvis CTA 05/07/25 07:43 IMPRESSION: 1. Hematoma superficial to the anterior lower uterine segment measuring 9.0 x 7.7 x 2.4 cm. 2. Thickened endometrial complex, likely hematoma. Retained products of conception are not excluded. 3. No pulmonary embolus. 4. Small pleural effusions. ECG Data EKG #1: ECG completion date: 05/07/25 ECG completion time: 01:12 normal rate, sinus rhythm and no acute changes Discharge Plan Discharge Clinical Impression: Dyspnea, Chest pain, Headache, hypertension Patient Disposition: Home Condition: Stable Instructions: Hypertension During (ED) Additional Instructions: Please continue to monitor your blood pressure as directed take all prescribed medications. Seek immediate medical care if you develop chest pain, shortness of breath, severe headache, vision changes, swelling of the face drains, dizziness, or worsening symptoms. Follow-up closely with your OBGYN next week for blood pressure recheck and ongoing management. Take anti-inflammatories (Aleve, Ibuprofen, Naproxen, etc) and Tylenol as needed for pain. Patient Language: [place] Prescriptions: No Action DHA 200 mg capsule PO ferrous sulfate 325 mg (65 mg iron) tablet 325 mg PO DAILY Qty: 90 0RF valacyclovir 500 mg tablet 500 mg PO DAILY Qty: 90 0RF acetaminophen 500 mg capsule 500 mg PO Q6H PRN (Reason: pain) Qty: 20 0RF metoclopramide HCl 10 mg tablet 10 mg PO Q6H PRN (Reason: nausea and vomiting) Qty: 14 0RF ibuprofen 600 mg tablet 600 mg PO Q6H PRN (Reason: cramps) Qty: 30 0RF oxycodone-acetaminophen [Endocet] 5-325 mg tablet 1 - 2 tablet PO Q6H PRN (Reason: pain) Qty: 30 0RF enoxaparin [Lovenox] 40 mg/0.4 mL syringe 40 mg subcut DAILY Qty: 4 1RF (DME) cane Device See Rx Instructions .Route Qty: 1 0RF Rx Instructions: As directed (DME) safety needles 25 gauge x 1 1/2 needle See Rx Instructions .Route Qty: 100 1RF Rx Instructions: As directed Follow-up/Referrals: UNKNOWN,DOCTOR [Primary Care Provider]
[2025-05-07 05:00] VITALS: BP 133/78; PULSE 84; RESP 17; O2SAT 99
[2025-05-07 05:04] LABS: Add Urine Microscopic? YES; Appearance Urine Clear (Clear); Glucose Urine UA Negative (Negative); Leukocyte Esterase Ur Trace LEU/UL (Negative); Nitrate Urine Negative (Negative); Non Pathogenic Casts 0-2; Specific Grav Ur 1.035 (1.001-1.035)
[2025-05-07 05:36] LABS: Influenza A QL RT-PCR Negative (Negative); Influenza B QL RT-PCR Negative (Negative); RSV RNA, RT-PCR Negative (Negative); SARS-CoV-2 RNA PCR Negative (Negative)
[2025-05-07] MEDS: KETOROLAC (*BKC) 60 MG/2 ML VIAL IM (06:03)
[2025-05-07 06:12] VITALS: BP 133/78; PULSE 84; RESP 17; O2SAT 99
== END 2025-05-07 06:15 | disposition home or self-care (01) ==
PROVIDERS: Emergency Medicine
DX: O13.5 Gestational [pregnancy-induced] hypertension without significant proteinuria, complicating the puerperium (principal); O90.89 Other complications of the puerperium, not elsewhere classified; R51.9 Headache, unspecified; R06.00 Dyspnea, unspecified; R07.9 Chest pain, unspecified; Z20.822 Contact with and (suspected) exposure to COVID-19; O99.03 Anemia complicating the puerperium; D57.1 Sickle-cell disease without crisis; Z86.711 Personal history of pulmonary embolism
CPT/HCPCS: 36415; 71046; 71275; 74177; 80053; 81001; 83735; 84550; 85025; 85055; 85610; 85730; 87637; 93005; 96372; 99284; J1885; Q9967